=== PATIENT | male | born 1985 | race Caucasian/White ===

== ENCOUNTER → 2022-09-29 09:59 | Outpatient (REF) | payer MEDICAID, SELFPAY ==
--- NOTE | 2022-09-29 10:04 | CA_ITS ---
Acquisition Time: 2022-09-29 10:10:45 Total Exercise Time: 00:05:37 Test Indications: CP Medications: SEE H Protocol: ЕЛЕНА Max HR: 144 BPM 77% of Pred: 185 BPM Max BP: 194/114 mmHG Max Work Load: 7.0 METS Exercise stress test exercise 5 min 37 sec of Елена protocol achieving 77% of MPHR, with mild SOB, no chest discomfort, with frequent PACs, occational PVC, with hypertensive response with max BP 194/114 with need to stop exercise, with non-diagnostic EKG due to suboptimal HR. In recovery BP came to 148/98Test reviewed with Dr. Rodgers. Called PCP office with report. Referred By: Gloria Cruz Overread By: BYRON BURTON
== END ==
LOC: HO.CARD 09:59
PROVIDERS: PCP Nurse Practitioner Primary Care; Visit Provider Nurse Practitioner Primary Care
DX: R07.9 Chest pain, unspecified (principal); I10 Essential (primary) hypertension; E78.5 Hyperlipidemia, unspecified; E11.69 Type 2 diabetes mellitus with other specified complication
CPT/HCPCS: 93017

== ENCOUNTER 2023-02-02 12:27 | Outpatient (AMB) | payer MEDICAID, SELFPAY ==
--- NOTE | 2023-02-02 12:49 | A.OFFVIS_ITS ---
Intake Vital Signs 02/02/23 12:50 Height 5 ft 11 in Weight 297 lb 9.985 oz BMI 41.5 BP 136/88 Blood Pressure Location Lt brachial Position Sitting Pulse 78 Intake Visit Reasons: NPV/Cruz/HTN Intake Note: New patient dx HTN c/o sob and chest pain (? 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 Present Accompanied by: girlfriend Allergies No Known Allergies Allergy (Unverified 03/15/20 15:38) Medication List - Last Reconciled 02/02/23 by Alexandre Whelan MD allopurinol 200 mg PO DAILY amlodipine 5 mg PO DAILY aspirin 81 mg PO DAILY atorvastatin 20 mg PO DAILY dulaglutide (Trulicity) mg subcut QWEEK glipizide ER 5 mg PO QAM indomethacin 50 mg PO TID insulin glargine (Lantus Solostar U-100 Insulin) 24 units subcut DAILY losartan 100 mg PO QAM magnesium 200 mg PO DAILY omega 2-xgj-izn-fish oil 300 mg (120 mg- 180mg)-1,000 mg 1 cap PO BID pantoprazole 20 mg PO QAM HPI HPI Comments History of Present Illness Details Thank you for referring Pao in cardiology consultation today for exertional shortness of breath and chest discomfort. Complains of infra memory chest pain left side not always exertion related. However chest pain could have been related to elevated blood pressure in the past. Blood pressure is to be markedly elevated in 200 systolic range. With medications blood pressure is much better control at this point in time. High blood pressure still remains with systolic 138-150. He also complains of exertional shortness of breath. He is accompanied by his significant other. She says that he snores significantly at nighttime and has daytime somnolence. He denies any prolonged palpitations, irregular heartbeat. Denies any lightheadedness, syncope. Denies any orthopnea, PND. Takes his current medications. He said his diabetes under better control as well. He has completely stop drinking alcohol for the last year. Smokes about 5 cigarettes a day. [facility] Medical History Diabetes HTN (hypertension) Obesity Family History Father No problems noted. Mother No problems noted. Social History Patient Tobacco Use Status: Current everyday Tobacco user Cigarette Packs Per Day: 0.5 Review of Systems Const Denies chills, Denies daytime sleepiness, Denies fatigue, Denies fever(s), Denies frequent falls, Denies poor appetite, Denies snoring, Denies stops breathing during sleep, Denies weakness, Denies weight gain and Denies weight loss Eyes Denies loss of vision ENT Denies dizziness and Denies hearing loss Card Denies chest pain, Denies claudication, Denies leg edema, Denies lightheadedness, Denies palpitations, Denies dyspnea, Denies dyspnea on exertion and Denies orthopnea Resp Denies cough, Denies excessive phlegm production, Denies dyspnea, Denies dyspnea on exertion, Denies snoring and Denies wheezing GI Denies abdominal pain, Denies hematochezia, Denies change in bowel habits, Denies nausea and Denies vomiting Denies dysuria and Denies urinary frequency Musc Denies arthralgias, Denies muscle weakness, Denies numbness and Denies other (frequent falls) Skin/Breast Denies nail changes and Denies rash Neuro Denies Abnormal speech present, Denies dizziness, Denies frequent falls, Denies loss of vision, Denies memory loss, Denies numbness and Denies weakness Psych Denies depression and Denies memory loss Endo Denies fatigue and Denies palpitations Forrest/Lymph Reports easy bruising and Reports other (anemia) Aller/Immun Denies wheezing Physical Exam Vital Signs: Last Vital Signs Pulse 78 02/02/23 12:50 BP 136/88 02/02/23 12:50 BMI result Body Mass Index 41.5 Const General: cooperative, comfortable, no acute distress, alert and awake Nutritional Appearance: obese morbidly obese Orientation/consciousness: patient oriented x3 Limitations: no limitations HEENT Head: Yes normocephalic and Yes atraumatic Neck Neck: Yes trachea midline, Yes supple and Yes no JVD Resp Effort & Inspection: normal respiratory effort Auscultation: clear to auscultation bilaterally Cardio Jugular venous distension: no JVD Palpation: normal PMI Rate: regular rate Rhythm: regular rhythm Heart sounds: S1 normal heart sound present, S2 normal heart sound present, no click, no gallops, no murmurs and no rubs GI Inspection: Yes obesity Auscultation: normal bowel sounds Skin General skin exam: no rashes or lesions noted Neuro General: patient oriented x3 and no focal motor deficits Speech: No Abnormal speech present Extrem General: Yes no clubbing, cyanosis or edema Psych Appearance: grossly normal Office Procedures EKG Details: EKG shows normal sinus rhythm normal EKG at 78 beats per minute [id number], Complete Assessment & Plan Assessment & Plan (1) Atypical chest pain: Code(s): R07.89 - Other chest pain Plan: Patient persistent symptoms exertional shortness of breath as well as atypical chest pain. Could be related to hypertensive heart disease. Suggest an echocardiogram to evaluate for LV systolic and diastolic function as well as to evaluate for hypertensive heart disease. He had a suboptimal stress test related to reduced exercise capacity. Would suggest a vasodilating myocardial perfusion imaging given his significant risk factors to evaluate for obstructive coronary artery disease. This test will be scheduled in near future. Further treatment based on the findings. (2) HTN (hypertension): Code(s): I10 - Essential (primary) hypertension Plan: Hypertension which is currently not well optimized. Has high likelihood of underlying obstructive sleep apnea. Suggested him to undergo sleep study in the near future. All also change his losartan to losartan hydrochlorothiazide. Advised to monitor blood pressure at home and maintain a log. Goal blood pressure less than 130/84. Aggressive control of diabetes recommended goal hemoglobin A1c less than 7%. Goal LDL less than 70 mg/dL. Strongly recommend to participate in aggressive weight loss program. He understands agrees. Complete smoking cessation was advised as well. He understands and agrees. Follow up in the clinic in 6 weeks time, sooner p.r.n.. Thank you for allowing me to partake in his care Orders: Orders CA lexiscan stress w michaela Today R07.89 - Other chest pain CA echo transthoracic complete Today R07.89 - Other chest pain RT home sleep study Today I10 - Essential (primary) hypertension, R40.0 - Somnolence Medications: New losartan-hydrochlorothiazide 100-12.5 mg 1 tab PO DAILY 30 tabs 5RF R07.89 - Other chest pain Coding Level of Care Code New Pt Level 4 (70643) Diagnoses Atypical chest pain R07. HTN (hypertension) I10 CPT Codes EKG - CPT: 71134-[id number], Complete ([id number])
[2023-02-02 12:50] VITALS: BP 136/88; PULSE 78; BMI 41.5
== END 2023-02-02 13:28 | disposition home or self-care (01) ==
PROVIDERS: Visit Provider Internal Medicine Cardiovascular Disease
DX: R07.89 Other chest pain (principal); I10 Essential (primary) hypertension
CPT/HCPCS: 93010; 99204

== ENCOUNTER → 2023-02-02 12:27 | Outpatient (BNVA) | payer MEDICAID, SELFPAY | PROVIDERS: Visit Provider Internal Medicine Cardiovascular Disease | DX: R07.89 Other chest pain (principal); I10 Essential (primary) hypertension | CPT/HCPCS: 93005; 99202 ==

== ENCOUNTER → 2023-02-27 07:56 | Outpatient (REF) | payer MEDICAID, SELFPAY ==
--- NOTE | ~2023-02-27 | NM_ITS ---
Lexiscan Myocardial perfusion study Indication: Chest pain, shortness of breath, assess for coronary disease and ischemia Technique: The patient was brought in for a Lexiscan perfusion study on 02/27/2023 and was injected 0.4 mg of Lexiscan intravenously. Within a minute of this injection 40 mCi of sestamibi was given intravenously. Images were obtained using the SPECT gamma camera interlaced with the gating device. Images were obtained in supine position. Resting perfusion study was performed on 03/04/2023. Patient was administered 40 mCi of sestamibi intravenously at rest. Images were then obtained in supine position. Images were processed with the software and compared side to side in short axis, horizontal long axis and vertical long axis views. Total DLP 154mGy-cm. Findings: Raw acquisition reviewed. The stress perfusion study showed mildly diminished tracer uptake in the basal part of inferior wall. There is improvement with CT attenuation correction suggestive of diaphragmatic attenuation artifact. The gated study shows normal LV systolic function with calculated LVEF of 57%. LV cavity is normal in size. The gated study shows normal wall thickening and contraction of segments. Resting study shows mildly diminished tracer uptake in the basal part of inferior wall. Gating at rest reveals normal wall motion with ejection fraction at 56%. The findings are consistent with no clear reversible or fixed perfusion defects. NM/NM michaela perf SPECT rest & str Impression: 1. Myocardial perfusion imaging study shows likely normal myocardial perfusion. 2. Gated LVEF is 57% during stress and 56% during rest. 3. Transient ischemic dilatation not present. EKG component of the test reported separately.
--- NOTE | 2023-02-27 11:19 | CA_ITS ---
Acquisition Time: 2023-02-27 08:14:26 Total Exercise Time: 00:02:00 Test Indications: CP, SOB Medications: SEE H Protocol: LEXISCAN Max HR: 136 BPM 73% of Pred: 184 BPM Max BP: 136/074 mmHG Max Work Load: 1.6 METS Pharmacological stress test with Lexiscan injection while walking slowly on the treadmill, without anginal symptoms, with isolated PACs, with normotensive response to injection, with nondiagnositic EKGs. Nuclear images pending. Test reviewed with Dr. Rodgers. Referred By: Alexandre Whelan Overread By: Anahi Haagn
== END ==
LOC: HO.CARD 07:56
PROVIDERS: PCP Nurse Practitioner Primary Care; Visit Provider Internal Medicine Cardiovascular Disease
DX: R07.89 Other chest pain (principal)
CPT/HCPCS: 78452; 93017; A9500; J0280; J2785

== ENCOUNTER → 2023-02-27 11:19 | Outpatient (BNV) | payer MEDICAID, SELFPAY | PROVIDERS: PCP Nurse Practitioner Primary Care; Visit Provider Nurse Practitioner | DX: R07.89 Other chest pain (principal); R06.02 Shortness of breath | CPT/HCPCS: 78452; 93016; 93018 ==

== ENCOUNTER → 2023-03-12 08:19 | Outpatient (REF) | payer MEDICAID, SELFPAY ==
--- NOTE | 2023-03-12 08:22 | CA_ITS ---
Transthoracic Echocardiogram Patient (Last, First, Middle): Pavel Hollis, Gender: Male Date of : 1985 Age: 37 Procedure Date: 03/12/2023 Procedure Type: Transthoracic Echocardiogram Location: OP Height: 177.8 cm Weight: 130.18 kg BSA: 2.43 m2 Heart Rate: 86 bpm BP: 134 / 82 mmHg Vrt Mechanic: INGRID Referring MD: Alexandre Whelan MD Symptoms: R07.89 - Other chest pain Study Quality: Fair but adequate ECG Rhythm: Sinus Conclusions: - The left ventricular systolic function is normal. The visually estimated ejection fraction is between 65-70%. - Moderate to severe asymmetric septal hypertrophy. - No obvious valvular pathology seen on this study. Findings Procedure Information The quality of the study was technically difficult. The study quality is limited by patients body habitus. Left Ventricle Normal left ventricular cavity size. The left ventricular systolic function is normal. The visually estimated ejection fraction is between 65-70%. There is no evidence of regional wall motion abnormalities. Diastolic function is normal for age. Moderate to severe asymmetric septal hypertrophy. Right Ventricle Normal right ventricular cavity size and systolic function. Atria Both atria are normal in size. Aortic Valve There is a normal trileaflet aortic valve. There is no aortic valve stenosis. There is no aortic valve regurgitation. Mitral Valve The mitral valve appears normal. There is no mitral valve regurgitation. There is no mitral valve stenosis. Pulmonic Valve The pulmonic valve is likely normal. Tricuspid Valve There is no tricuspid valve regurgitation. Tricuspid regurgitation envelope is inadequate for calculation of right ventricular systolic pressure. Great Vessels The asc aorta is normal in size. Venous The inferior vena cava is normal in size and collapses greater than 50% with inspiration. Pericardium/Pleural There is no evidence of pericardial effusion. Prior Study Comparison No prior study available for comparison. Recommendations, Care & Conclusions No obvious valvular pathology seen on this study. Measurements 2D Linear Measurements IVSd: 1.52 0.6-0.9/0.6-1.0 cm LVIDd: 4.96 3.9-5.3/4.2-5.9 cm LVIDd Index: 2.04 2.4-3.2/2.2-3.1 cm/m2 LVIDs: 2.97 2.0-3.6 cm LVPWd: 0.85 0.7-1.1 cm LA Diam: 3.70 2.7-3.8/3.0-4.0 cm LAIDs Index: 1.52 1.5-2.3 cm/m2 LV Mass: 281.84 67-162/88-224 g LV Mass Index: 115.99 43-95/49-115 g/m2 LVOT Diam: 2.30 3.0+(-)1.3 cm 2D Systolic Function EF 4C: 64.30 >55% EF 2C: 58.60 >55% EF BiP: 61.00 >55% Mitral Valve MV Pk E: 0.96 MV PK A: 0.71 MV Decel Time: 158.00 E/A: 1.40 E'Lateral: 9.36 E'Medial: 8.49 E/E' Med: 11.20 E/E' Lat: 10.20 PHT: 46.00 MVA PHT: 4.78 Decel Towns: 6.06 Aortic Valve AoV Pk Alex: 1.56 AoV Pk Grad: 10.00 FELIBERTO: 2.60 LVOT LVOT Pk Alex: 1.14 LVOT Mn Alex: 0.80 LVOT VTI: 0.21 LVOT Pk Grad: 5.00 LVOT Mn Grad: 3.00 LVOT Diam: 2.30 LVOT Area: 4.15 Diastolic Function MV Pk E: 0.96 MV Pk A: 0.71 E/A: 1.40 E'Medial: 8.49 E/E' Med: 11.20 E' Laterial: 9.36 E/E' Lat: 10.20 Right Ventricle TAPSE (mm): 19.80 TVS' Alex: 16.00 Tricuspid Valve RA Press: 3.00 Great Vessels Aorta Sinus of Valsalva: 3.40 2.0-3.5 cm Ao Asc: 2.90 2.1-3.4 cm Pulmonary Veins Pulm Vein S/D 1.50 Pulmonary Valve PV Pk Alex: 1.25 Peak PV Grad: 6.00 Updated in Other Vendor System with Status of Final Scott Avalos MD electronically signed on 03/13/2023 8:56:08 AM with status of Final
== END ==
LOC: HO.CARD 08:19
PROVIDERS: PCP Nurse Practitioner Primary Care; Visit Provider Internal Medicine Cardiovascular Disease
DX: R07.89 Other chest pain (principal)
CPT/HCPCS: 93306

== ENCOUNTER → 2023-03-12 08:22 | Outpatient (BNV) | payer MEDICAID, SELFPAY | PROVIDERS: PCP Nurse Practitioner Primary Care; Visit Provider Internal Medicine | DX: I51.7 Cardiomegaly (principal) | CPT/HCPCS: 93306 ==

== ENCOUNTER 2023-03-19 08:42 | Outpatient (AMB) | payer MEDICAID, SELFPAY ==
--- NOTE | 2023-03-19 08:43 | A.OFFVIS_ITS ---
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 Accompanied by: Unknown Allergies No Known Allergies Allergy (Verified 03/19/23 08:48) Medication List - Last Reconciled 03/19/23 by Paris Holley, FILLING WINDER-C allopurinol 200 mg PO DAILY amlodipine 5 mg PO DAILY aspirin 81 mg PO DAILY atorvastatin 20 mg PO DAILY dulaglutide (Trulicity) mg subcut QWEEK glipizide ER 5 mg PO QAM indomethacin 50 mg PO TID insulin glargine (Lantus Solostar U-100 Insulin) 24 units subcut DAILY losartan-hydrochlorothiazide 100-12.5 mg 1 tab PO DAILY magnesium 200 mg PO DAILY omega 0-dlv-jez-fish oil 300 mg (120 mg- 180mg)-1,000 mg 1 cap PO BID pantoprazole 20 mg PO QAM quetiapine 25 mg PO BEDTIME HPI 6 wk fu of sleep study/stress/ echo HPI Details Feliciano is a 37-year-old male with past medical history morbid obesity, hypertension, diabetes who recently reported atypical chest discomfort and shortness of breath with activity. He underwent an echocardiogram and stress test. A sleep study was ordered however not completed as of yet. Today he reports that he still gets some vague discomfort in his left chest region, nonexertional in nature. He has some shortness of breath with activity which is not worsening. No shortness of breath at rest. Denies PND, orthopnea or edema. His significant other is present and states that he has visible sleep apnea at night. No palpitations, dizziness, presyncope, syncope, falls. Taking his meds as directed. Home blood pressures ranging 120-130 systolic. Improved since the addition of amlodipine. [facility] Medical History Obesity Diabetes HTN (hypertension) Family History Father No problems noted. Mother No problems noted. Social History Patient Tobacco Use Status: Current everyday Tobacco user Cigarette Packs Per Day: 0.5 Review of Systems Const All systems reviewed & are unremarkable except as noted in HPI and below ENT Denies dizziness Card Denies chest pain, Denies chest pain at rest, Denies chest pain with activity, Denies rapid heart rate, Denies pedal edema, Denies edema, Denies leg edema, Denies lightheadedness, Denies palpitations, Denies dyspnea, Denies dyspnea on exertion and Denies orthopnea Resp Denies cough, Denies dyspnea and Denies dyspnea on exertion GI Denies hematochezia and Denies change in stool character Musc Denies abnormal gait, Reports limited range of motion, Reports muscle cramps, Denies muscle weakness, Denies numbness, Denies radiating pain into limb, Denies stiffness and Denies tingling Neuro Denies abnormal gait, Denies dizziness, Denies numbness and Denies tingling Endo Denies palpitations Physical Exam Vital Signs: Last Vital Signs Pulse 80 03/19/23 08:44 BP 130/74 03/19/23 08:44 BMI result Body Mass Index 42.4 Const General: cooperative, healthy appearing, comfortable and no acute distress Orientation/consciousness: patient oriented x3 Neck Neck: Yes normal visual inspection Resp Effort & Inspection: normal respiratory effort Auscultation: clear to auscultation bilaterally, no crackles, no rales, no rhonchi and no wheezes Cardio Jugular venous distension: no JVD Rate: regular rate Rhythm: regular rhythm Heart sounds: S1 normal heart sound present, S2 normal heart sound present, no murmurs and no rubs GI Other: Obese, rounded Neuro General: patient oriented x3 Extrem General: Yes normal to inspection Psych Appearance: grossly normal Mental Status: mental status grossly normal Speech and movement: Normal speech and movement present Assessment & Plan Assessment & Plan (1) Atypical chest pain: Code(s): R07.89 - Other chest pain Plan: Atypical sounding chest discomfort, nonexertional. Cardiac risks of morbid obesity, hypertension, diabetes. Echocardiogram done 03/12/2023 showed EF 65- 70%, moderate to severe asymmetric septal hypertrophy. Nuclear stress test done on 02/27/2023 showing normal myocardial perfusion imaging. Sleep study was orde red however not completed as of yet. Will help him reschedule and plan to call him with results when available. Reviewed all test results with him in detail. His chest discomfort does not seem cardiac in nature. The strict importance of good blood pressure control reviewed. Benefits of weight loss, treating sleep apnea if it is present discussed. At present in continue home atorvastatin, aml odipine, losartan/hydrochlorothiazide. Daily aspirin not required at this time for cardiac reasons as he has no known CAD. Cardiology office visit in 6 months, sooner if needed (2) HTN (hypertension): Code(s): I10 - Essential (primary) hypertension Qualifiers: Hypertension type: primary hypertension Qualified Code(s): I10 - Essential (primary) hypertension Plan: Blood pressure goal less than 130/85. Good at present as above. Reviewed low- salt diet, weight loss. Continue amlodipine, losartan/hydrochlorothiazide. Meds can be further titrated as needed for blood pressures running with systolic greater than 140. (3) Obesity: Code(s): E66.9 - Obesity, unspecified Qualifiers: Obesity type: due to excess calories Obesity classification: adult class 3 (BMI >= 40) Serious obesity comorbidity presence: with serious comorbidity Body mass index: BMI 40.0-44.9 Qualified Code(s): E66.01 - Morbid (severe) obesity due to excess calories; Z68.41 - Body mass index [BMI] 40.0- 44.9, adult Plan: Instructed on the need for weight loss. He plans to increase his physical activ ity. Instructed to start out slow and work up his tolerance as able (4) Shortness of breath: Code(s): R06.02 - Shortness of breath Plan: Likely multifactorial in the setting of morbid obesity, deconditioning. Cardiac testing as above (5) Asymmetric septal hypertrophy: Code(s): I42.2 - Other hypertrophic cardiomyopathy Plan: Noted on recent echocardiogram Coding Level of Care Code Est Pt Level 3 (34647) Diagnoses Atypical chest pain R07.89 Primary hypertension I10 Hypertension type: primary hypertension Class 3 severe obesity due to excess calories with serious comorbidity and body mass index (BMI) of 40.0 to 44.9 in adult E66.01; Z68.41 Obesity type: due to excess calories Obesity classification: adult class 3 (BMI >= 40) Serious obesity comorbidity presence: with serious comorbidity Body mass index: BMI 40.0-44.9 Shortness of breath R06.02 Asymmetric septal hypertrophy I42.2 Time Spent (min) 22
[2023-03-19 08:44] VITALS: BP 130/74; PULSE 80; BMI 42.4
== END 2023-03-19 09:12 | disposition home or self-care (01) ==
PROVIDERS: PCP Nurse Practitioner Primary Care; Visit Provider Nurse Practitioner Family
DX: R07.89 Other chest pain (principal); I10 Essential (primary) hypertension; E66.01 Morbid (severe) obesity due to excess calories; Z68.41 Body mass index [BMI] 40.0-44.9, adult; R06.02 Shortness of breath; I42.2 Other hypertrophic cardiomyopathy
CPT/HCPCS: 99213

== ENCOUNTER → 2023-03-19 08:42 | Outpatient (BNVA) | payer MEDICAID, SELFPAY | PROVIDERS: PCP Nurse Practitioner Primary Care; Visit Provider Nurse Practitioner Family | DX: R07.89 Other chest pain (principal); R06.02 Shortness of breath; I42.2 Other hypertrophic cardiomyopathy; I10 Essential (primary) hypertension; E66.01 Morbid (severe) obesity due to excess calories; Z68.41 Body mass index [BMI] 40.0-44.9, adult | CPT/HCPCS: 99212 ==

== ENCOUNTER → 2023-04-23 15:54 | Outpatient (REF) | payer MEDICAID, SELFPAY | LOC: HO.SL 15:54 | PROVIDERS: PCP Nurse Practitioner Primary Care; Visit Provider Internal Medicine Cardiovascular Disease | DX: R40.0 Somnolence (principal); I10 Essential (primary) hypertension; G47.33 Obstructive sleep apnea (adult) (pediatric) | CPT/HCPCS: 95806 ==

== ENCOUNTER → 2023-04-23 16:02 | Outpatient (BNV) | payer MEDICAID, SELFPAY | PROVIDERS: PCP Nurse Practitioner Primary Care; Visit Provider Internal Medicine | DX: G47.33 Obstructive sleep apnea (adult) (pediatric) (principal) | CPT/HCPCS: 95806 ==

== ENCOUNTER 2023-05-01 11:16 | Outpatient (AMB) | payer MEDICAID, SELFPAY ==
--- NOTE | 2023-05-01 11:18 | A.OFFVIS_ITS ---
Intake Vital Signs 05/01/23 11:23 Height 5 ft 11 in Weight 300 lb BMI 41.8 BP 140/98 H Blood Pressure Location Lt brachial Position Sitting Pulse 81 Pulse Source Pulse Oximeter Pulse Oximetry (%) 97 Oxygen Delivery Method Room Air Intake Visit Reasons: [id number] Intake Note: NPV for AARON evaluation Health Science Specialist Required: No Allergies No Known Allergies Allergy (Verified 05/01/23 11:19) HPI HPI Comments History of Present Illness Details 37 y/o male patient presents for new in- person visit for sleep consultation. Pt reports snoring, and gasping, frequent apnea spells. He fights for sleep, feels not having enough air when he sleeps and afraid to sleep. He only can sleep 4 hrs and wake up tired. Pt had a home sleep study done in Mar, 2023. The result was significant for moderately to severe AARON. The total AHI was 20/hr and snoring for 27% of the sleep time. Mild nocturnal hypoxemia with average O2 sat 92% and the lowest O2 sat 68% and O2 sat below 88% for 20 min. Sleep questionnaire: Have you ever been diagnosed with a sleep disorder? Yes. AARON Have you ever had a sleep study in the past? Yes Have you ever been treated for a sleep disorder? Yes. Do you take medications for a sleep disorder? No. Do you snore? Yes Do you wake up gasping at night? Yes. Do you have episodes of apneas? Yes. If yes, are they witnessed? Yes. Do you have episodes of nocturnal chest pain or dyspnea? Yes. Do you have difficulty initiating sleep? Yes. Do you have difficulty maintaining sleep? Yes. Do you wake up tired? Yes. Do you have headaches upon awakening? Yes, sometimes. Do you wake up with dry mouth or throat? Yes. Do you have GERD? Yes. Do you have nocturia? Yes. Do you have nocturnal leg cramps? No. Do you have symptoms of restless legs? Yes. Do you act out your dreams? Yes, kicking and punching. Sleep hygiene questionnaire: What is your usual sleep routine? Usual bedtime is at 3-4 am ; Usual wake up time is at 7-8 am. Do you take naps? Yes, sometimes. Is your sleep environment cool, dark, and quiet? Yes. Do you exercise? No. Do you take caffeine or other stimulants? Coffee and energy drink 2-3 times a week. Do you use electronics in bed? Yes. What is your work schedule? N/A. Hypersomnolence questionnaire: Do you have daytime tiredness or fatigue? Yes. Do you easily fall asleep when inactive? No. Have you ever had episodes of sudden weakness? No. Have you ever had episodes of sudden weakness associated with strong emotions? No. PFSH Medical History (Updated 05/26/23 @ 20:40 by Conrad Thompson CNP) Obesity Diabetes HTN (hypertension) Surgical History (Updated 05/01/23 @ 11:22 by Rosy Valencia [facility]) Hx of appendectomy Family History Father No problems noted. Mother No problems noted. Social History (Updated 05/01/23 @ 11:23 by Rosy Valencia [facility]) Alcohol intake: never Patient Tobacco Use Status: Current everyday Tobacco user Cigarette Packs Per Day: 0.5 Review of Systems Const All systems reviewed & are unremarkable except as noted in HPI and below ENT Reports Normal hearing present Neuro Reports Normal hearing present Physical Exam Vital Signs: Last Vital Signs Pulse 81 05/01/23 11:23 BP 140/98 H 05/01/23 11:23 Pulse Ox 97 05/01/23 11:23 Oxygen Delivery Method Room Air 05/01/23 11:23 BMI result Body Mass Index 41.8 Const General: cooperative Nutritional Appearance: obese Orientation/consciousness: patient oriented x3 Neck Neck: Yes full ROM and Yes supple Resp Effort & Inspection: normal respiratory effort and able to speak in complete sentences Neuro General: patient oriented x3 Cranial nerves: Yes Bilaterally intact EOM present, Yes Normal facial strength present, Yes Midline tongue present, Yes Symmetric palate elevation present, Yes Normal hearing present, Yes Ability to bilaterally rotate head present and Yes Ability to bilaterally elevate shoulders present Cognition (Neuro): normal cognition Motor exam (neuro): 5/5 motor strength present throughout, Pronator motor function not present and no tremor noted Psych Appearance: grossly normal Mental Status: mental status grossly normal Speech and movement: Normal speech and movement present Attitude: cooperative Assessment & Plan Assessment & Plan (1) Obstructive sleep apnea: Comment: moderately to severe AARON. The total AHI was 20/hr and snoring for 27% of the sleep time. Mild nocturnal hypoxemia with average O2 sat 92% and the lowest O2 sat 68% and O2 sat below 88% for 20 min. Code(s): G47.33 - Obstructive sleep apnea (adult) (pediatric) Plan Advised patient to start APAP [id number]. Stressed CPAP compliance, use CPAP nightly and more than 4 hrs. Wt reduction advised. Start melatonin 3 mg qHS to help sleep. Medications: New melatonin 3 mg PO BEDTIME 30 tabs 6RF sleep 30 days Coding Level of Care Code New Pt Level 3 (82789) Diagnoses Obstructive sleep apnea G47.33
[2023-05-01 11:23] VITALS: BP 140/98; PULSE 81; O2SAT 97; BMI 41.8
== END 2023-05-01 11:47 | disposition home or self-care (01) ==
PROVIDERS: PCP Nurse Practitioner Primary Care; Visit Provider Nurse Practitioner Family
DX: G47.33 Obstructive sleep apnea (adult) (pediatric) (principal)
CPT/HCPCS: 99203

== ENCOUNTER → 2023-05-01 11:16 | Outpatient (BNVA) | payer MEDICAID, SELFPAY | PROVIDERS: PCP Nurse Practitioner Primary Care; Visit Provider Nurse Practitioner Family | DX: G47.33 Obstructive sleep apnea (adult) (pediatric) (principal) | CPT/HCPCS: 99212 ==

== ENCOUNTER 2023-09-03 09:30 | Outpatient (AMB) | payer MEDICAID, SELFPAY ==
--- NOTE | 2023-09-03 09:37 | MHC.OFFVIS ---
Intake Vital Signs 09/03/23 09:45 Height 5 ft 11 in Weight 314 lb 2 oz BMI 43.8 BP 134/70 Blood Pressure Location Rt brachial Position Sitting Pulse 82 Pulse Source Pulse Oximeter Temp 97 F Pulse Oximetry (%) 97 Oxygen Delivery Method Room Air Intake Visit Reasons: 4 mo f/u -AARON-Confirmed Intake Note: Patient presents for 4 month f/u AARON. Would like to switch to the nasal pillows because mask is very uncomfortable. Allergies No Known Allergies Allergy (Verified 09/14/23 08:19) HPI HPI Comments History of Present Illness Details 37 y/o male patient presents for follow up of sleep study. The home sleep study result was significant for a moderately severe degree of sleep apnea. The total sleep time AHI was 20/hr, mild nocturnal hypoxemia with average O2 sat 92%, lowest O2 sat 68% and O2 sat below 88% for 20 min. Pt started APAP at [id number]. The CPAP compliance and therapy response (06/05/23-09/02/23) reviewed. The usage days 83% and the average usage hours 4 hrs 10 min. The max pressure was 13.2 and the residual AHI wa 1.4/hr. Pt reports he sleeps better with CPAP, and rested, and wakes up refreshed. [facility] Medical History Obesity Diabetes HTN (hypertension) Surgical History Hx of appendectomy Family History Father No problems noted. Mother Sleep apnea History of thyroid disease Social History Alcohol intake: never Patient Tobacco Use Status: Current everyday Tobacco user Cigarette Packs Per Day: 0.5 Review of Systems Const All systems reviewed & are unremarkable except as noted in HPI and below ENT Reports Normal hearing present Neuro Reports Normal hearing present Physical Exam Vital Signs: Last Vital Signs Temp 97 F 09/03/23 09:45 Pulse 82 09/03/23 09:45 BP 134/70 09/03/23 09:45 Pulse Ox 97 09/03/23 09:45 Oxygen Delivery Method Room Air 09/03/23 09:45 BMI result Body Mass Index 43.8 Const General: cooperative Nutritional Appearance: obese Orientation/consciousness: patient oriented x3 Neck Neck: Yes full ROM and Yes supple Resp Effort & Inspection: normal respiratory effort and able to speak in complete sentences Neuro General: patient oriented x3 Cranial nerves: Yes Bilaterally intact EOM present, Yes Normal facial strength present, Yes Midline tongue present, Yes Symmetric palate elevation present, Yes Normal hearing present, Yes Ability to bilaterally rotate head present and Yes Ability to bilaterally elevate shoulders present Cognition (Neuro): normal cognition Motor exam (neuro): 5/5 motor strength present throughout, Pronator motor function not present and no tremor noted Psych Appearance: grossly normal Mental Status: mental status grossly normal Speech and movement: Normal speech and movement present Attitude: cooperative Assessment & Plan Assessment & Plan (1) Obstructive sleep apnea: Comment: moderately to severe AARON. The total AHI was 20/hr and snoring for 27% of the sleep time. Mild nocturnal hypoxemia with average O2 sat 92% and the lowest O2 sat 68% and O2 sat below 88% for 20 min. Code(s): G47.33 - Obstructive sleep apnea (adult) (pediatric) Plan Advised patient to continue to use APAP [id number] as patient experiences good clinical effects. Stressed compliance, use CPAP nightly and more than 4 hrs. Wt reduction advised. Coding Level of Care Code Est Pt Level 3 (00393) Diagnoses Obstructive sleep apnea G47.33
[2023-09-03 09:45] VITALS: BP 134/70; PULSE 82; TEMP 36.1; O2SAT 97; BMI 43.8
== END 2023-09-03 10:00 | disposition home or self-care (01) ==
PROVIDERS: PCP Nurse Practitioner Primary Care; Visit Provider Nurse Practitioner Family
DX: G47.33 Obstructive sleep apnea (adult) (pediatric) (principal)
CPT/HCPCS: 99213

== ENCOUNTER → 2023-09-03 09:30 | Outpatient (BNVA) | payer MEDICAID, SELFPAY | PROVIDERS: PCP Nurse Practitioner Primary Care; Visit Provider Nurse Practitioner Family | DX: G47.33 Obstructive sleep apnea (adult) (pediatric) (principal) | CPT/HCPCS: 99212 ==

== ENCOUNTER 2023-09-14 08:04 | Outpatient (AMB) | payer MEDICAID, SELFPAY ==
[2023-09-14 08:18] VITALS: BP 134/72; PULSE 79; BMI 43.5
--- NOTE | 2023-09-14 08:18 | A.OFFVIS_ITS ---
Intake Vital Signs 09/14/23 08:18 Height 5 ft 11 in Weight 312 lb 2.793 oz BMI 43.5 BP 134/72 Blood Pressure Location Lt brachial Position Sitting Pulse 79 Pulse Source Pulse Oximeter Intake Visit Reasons: 6 mth f/up home sleep study Hospice Case Manager Required: No Allergies No Known Allergies Allergy (Verified 09/14/23 08:19) Medication List - Last Reconciled 09/14/23 by Paris Holley, WILFREDO-C allopurinol 200 mg PO DAILY amlodipine 5 mg PO DAILY aripiprazole 5 mg PO DAILY aspirin 81 mg PO DAILY atorvastatin 20 mg PO DAILY blood pressure kit-extra large As directed blood sugar diagnostic (FreeStyle Lite Strips) As directed diclofenac sodium 1% 2 grams topical glipizide ER 10 mg PO QAM indomethacin 50 mg PO TID insulin glargine (Lantus Solostar U-100 Insulin) 24 units subcut DAILY lancets (TRUEplus Lancets) As directed losartan-hydrochlorothiazide 100-12.5 mg 1 tab PO DAILY magnesium 200 mg PO DAILY melatonin 3 mg PO BEDTIME 30 days omega 4-kag-pkv-fish oil 300 mg (120 mg- 180mg)-1,000 mg 1 cap PO BID pantoprazole 20 mg PO QAM prazosin 1 mg PO BEDTIME tirzepatide (Mounjaro) mg subcut QWEEK HPI 6 mth f/up home sleep study HPI Details Pavel is a 37 year old male with past medical history morbid obesity, hypertension, hyperlipidemia, diabetes, assymetric septal hypertrophy, sleep apnea with nocturnal hypoxemia who presents for follow-up. Today he states he has been doing well since his last visit in February. Has been compliant with his CPAP mask. He follows with Sleep Medicine providers. No chest discomfort at rest or with activity. No heart palpitations, lightheadedness, presyncope, syncope, shortness of breath, PND orthopnea or edema. Taking meds as directed. Does not do heavy lifting, greater than 40 lb. Significant other is present. [facility] Medical History Obesity Diabetes HTN (hypertension) Surgical History Hx of appendectomy Family History Father No problems noted. Mother Sleep apnea History of thyroid disease Social History Alcohol intake: never Patient Tobacco Use Status: Current everyday Tobacco user Cigarette Packs Per Day: 0.5 Review of Systems Const All systems reviewed & are unremarkable except as noted in HPI and below ENT Denies dizziness Card Denies chest pain, Denies chest pain at rest, Denies chest pain with activity, Denies rapid heart rate, Denies pedal edema, Denies edema, Denies leg edema, Denies lightheadedness, Denies palpitations, Denies dyspnea, Denies dyspnea on exertion and Denies orthopnea Resp Denies cough, Denies dyspnea and Denies dyspnea on exertion GI Denies hematochezia and Denies change in stool character Musc Denies abnormal gait, Denies limited range of motion, Denies muscle cramps, Denies muscle weakness, Denies numbness, Denies radiating pain into limb, Denies stiffness and Denies tingling Neuro Denies abnormal gait, Denies dizziness, Denies numbness and Denies tingling Endo Denies palpitations Physical Exam Vital Signs: Last Vital Signs Pulse 79 09/14/23 08:18 BP 134/72 09/14/23 08:18 BMI result Body Mass Index 43.5 Const General: cooperative, healthy appearing, comfortable and no acute distress Orientation/consciousness: patient oriented x3 Neck Neck: Yes normal visual inspection Resp Effort & Inspection: normal respiratory effort Auscultation: clear to auscultation bilaterally, no crackles, no rales, no rhonchi and no wheezes Cardio Jugular venous distension: no JVD Rate: regular rate Rhythm: regular rhythm Heart sounds: S1 normal heart sound present, S2 normal heart sound present, no murmurs and no rubs GI Other: Obese, rounded Neuro General: patient oriented x3 Extrem General: Yes normal to inspection Psych Appearance: grossly normal Mental Status: mental status grossly normal Speech and movement: Normal speech and movement present Assessment & Plan Assessment & Plan (1) Atypical chest pain: Code(s): R07.89 - Other chest pain Plan: Prior reports of Atypical sounding chest discomfort, nonexertional which led to cardiac evaluation. Cardiac risks of morbid obesity, hypertension, diabetes. Echocardiogram done 03/12/2023 showed EF 65-70%, moderate to severe asymmetric septal hypertrophy. Nuclear stress test done on 02/27/2023 showing normal myocardial perfusion imaging. Sleep study 04/30/2023 showed moderately severe obstructive sleep apnea, with hypoxemia, lowest sat 68%. He has since started on CPAP and follows with Sleep Medicine. Says he has been doing well overall. He no longer gets the chest discomfort. His symptom had been atypical and was not felt to be cardiac related. He does have the asymmetric septal hypertrophy which can be related to his hypertension, morbid obesity, previously untreated sleep apnea. Reviewed the strict importance of good blood pressure control reviewed. Encouraged to lose weight, ongoing treatment sleep apnea. At present in continue home atorvastatin, amlodipine, losartan/hydrochlorothiazide. Will check an echo prior to his next visit. Cardiology office visit in 6 months, sooner if needed (2) HTN (hypertension): Code(s): I10 - Essential (primary) hypertension Qualifiers: Hypertension type: primary hypertension Qualified Code(s): I10 - Essential (primary) hypertension Plan: Blood pressure goal less than 130/85. Good at present as above. Reviewed low- salt diet, weight loss. Continue amlodipine, losartan/hydrochlorothiazide. Meds can be further titrated as needed for blood pressures running with systolic greater than 140. (3) Obesity: Code(s): E66.9 - Obesity, unspecified Qualifiers: Body mass index: BMI 40.0-44.9 Obesity classification: adult class 3 (BMI >= 40) Obesity type: due to excess calories Serious obesity comorbidity presence: with serious comorbidity Qualified Code(s): E66.01 - Morbid (severe) obesity due to excess calories; Z68.41 - Body mass index [BMI] 40.0-44.9, adult Plan: Instructed on the need for weight loss. He plans to increase his physical activity. Instructed to start out slow and work up his tolerance as able. He would benefit from weight management referral. Will for this note to his PCP. (4) Asymmetric septal hypertrophy: Code(s): I42.2 - Other hypertrophic cardiomyopathy Plan: Noted on recent echocardiogram Plan Time spent on chart review, documentation, interview and assessment Orders: Orders CA echo transthoracic complete 03/02/24 I42.2 - Other hypertrophic cardiomyopathy Coding Level of Care Code Est Pt Level 4 (07081) Diagnoses Atypical chest pain R07.89 Primary hypertension I10 Hypertension type: primary hypertension Class 3 severe obesity due to excess calories with serious comorbidity and body mass index (BMI) of 40.0 to 44.9 in adult E66.01; Z68.41 Body mass index: BMI 40.0-44.9 Obesity classification: adult class 3 (BMI >= 40) Obesity type: due to excess calories Serious obesity comorbidity presence: with serious comorbidity Asymmetric septal hypertrophy I42.2 Time Spent (min) 28
== END 2023-09-14 08:38 | disposition home or self-care (01) ==
PROVIDERS: PCP Nurse Practitioner Primary Care; Visit Provider Nurse Practitioner Family
DX: R07.89 Other chest pain (principal); I10 Essential (primary) hypertension; E66.01 Morbid (severe) obesity due to excess calories; Z68.41 Body mass index [BMI] 40.0-44.9, adult; I42.2 Other hypertrophic cardiomyopathy
CPT/HCPCS: 99214

== ENCOUNTER → 2023-09-14 08:04 | Outpatient (BNVA) | payer MEDICAID, SELFPAY | PROVIDERS: PCP Nurse Practitioner Primary Care; Visit Provider Nurse Practitioner Family | DX: R07.89 Other chest pain (principal); I10 Essential (primary) hypertension; E66.01 Morbid (severe) obesity due to excess calories; Z68.41 Body mass index [BMI] 40.0-44.9, adult; I42.2 Other hypertrophic cardiomyopathy | CPT/HCPCS: 99212 ==

== ENCOUNTER 2023-12-29 09:11 | Outpatient (REF) | payer MEDICAID, SELFPAY ==
[2023-12-29 11:34] LABS: Alanine Aminotransferase 149 U/L (0-40); Albumin Level 4.2 g/dL (3.5-5.0); Alkaline Phosphatase 119 U/L (39-117); Anion Gap 14 (12-20); Aspartate Amino Transferase 65 U/L (5-37); Bilirubin Total 1.2 mg/dL (0.0-1.0); Blood Urea Nitrogen 12 mg/dL (9-16); Calcium 9.5 mg/dL (8.4-10.2); Carbon Dioxide 26 mmol/L (22-29); Chloride 101 mmol/L (96-108); Cholesterol 101 mg/dL (<200); Estimated Glomerular Filt Rate > 60; Glucose Random 266 mg/dL (60-115); HDL Cholesterol 27 mg/dL (>40); LDL Cholesterol Calculated 24 mg/dL (<100); Potassium 3.8 mmol/L (3.3-5.1); Sodium 137 mmol/L (135-145); Total Protein 7.8 g/dL (6.5-8.0); Triglycerides 251 mg/dL (<150)
[2023-12-29 11:57] LABS: TSH reflex Free T4 3.04 uIU/mL (0.32-4.0)
[2023-12-29 12:09] LABS: Creatinine Urine 448.59 mg/dL; Microalbum/Creatinine Ratio Ur 20.2 ug/mg cr (<30)
== END 2023-12-29 09:12 | disposition home or self-care (01) ==
LOC: HO.HHCL 09:11
PROVIDERS: Visit Provider Nurse Practitioner Primary Care
DX: E11.69 Type 2 diabetes mellitus with other specified complication (principal); E78.5 Hyperlipidemia, unspecified; E03.9 Hypothyroidism, unspecified
CPT/HCPCS: 36415; 80053; 80061; 82043; 82570; 84443

== ENCOUNTER 2024-02-25 09:17 | Outpatient (REF) | payer MEDICAID, SELFPAY ==
[2024-02-25 13:25] LABS: Alanine Aminotransferase 172 U/L (0-40); Albumin Level 4.1 g/dL (3.5-5.0); Alkaline Phosphatase 90 U/L (39-117); Aspartate Amino Transferase 123 U/L (5-37); Bilirubin Direct 0.3 mg/dL (0.0-0.5); Bilirubin Total 0.9 mg/dL (0.0-1.0); Cholesterol 101 mg/dL (<200); HDL Cholesterol 26 mg/dL (>40); LDL Cholesterol Calculated 20 mg/dL (<100); Total Protein 7.7 g/dL (6.5-8.0); Triglycerides 275 mg/dL (<150)
== END 2024-02-25 09:18 | disposition home or self-care (01) ==
LOC: HO.HHCL 09:17
PROVIDERS: Visit Provider Nurse Practitioner Primary Care
DX: E11.69 Type 2 diabetes mellitus with other specified complication (principal); E78.5 Hyperlipidemia, unspecified; R79.89 Other specified abnormal findings of blood chemistry
CPT/HCPCS: 36415; 80061; 80076

== ENCOUNTER → 2024-03-02 07:50 | Outpatient (REF) | payer MEDICAID, SELFPAY ==
--- NOTE | 2024-03-02 07:52 | CA_ITS ---
Transthoracic Echocardiogram Patient (Last, First, Middle): Pavel Hollis, Gender: Male Date of : 1985 Age: 38 Procedure Date: 03/02/2024 Procedure Type: Transthoracic Echocardiogram Location: OP Height: 177.8 cm Weight: 141.52 kg BSA: 2.52 m2 Heart Rate: bpm BP: 124 / 70 [address] Engineer Freight: TO Referring MD: Paris Holley DOG RAISER-Prince Symptoms: I42.2 - Other hypertrophic cardiomyopathy Study Quality: Fair/Contrast ECG Rhythm: Sinus with extra beats Conclusions: - The left ventricular systolic function is normal. The calculated ejection fraction is 61% by biplane method. - Moderate to severe asymmetric septal hypertrophy. - No obvious valvular pathology seen on this study. Findings Procedure Information Contrast agent, definity, is being given per protocol without apparent complications. Left Ventricle Normal left ventricular cavity size. The left ventricular systolic function is normal. The calculated ejection fraction is 61% by biplane method. There is no evidence of regional wall motion abnormalities. Diastolic function is normal for age. Moderate to severe asymmetric septal hypertrophy. Right Ventricle Normal right ventricular cavity size and systolic function. Atria Both atria are normal in size. Aortic Valve There is a normal trileaflet aortic valve. There is no aortic valve stenosis. There is no aortic valve regurgitation. Mitral Valve The mitral valve appears normal. There is no mitral valve regurgitation. There is no mitral valve stenosis. Pulmonic Valve The pulmonic valve is likely normal. Tricuspid Valve There is no tricuspid valve regurgitation. Tricuspid regurgitation envelope is inadequate for calculation of right ventricular systolic pressure. Great Vessels The aortic annulus, sinuses of valsalva, and asc aorta are normal in size. Venous The inferior vena cava was not well visualized. The inferior vena cava is normal in size. Pericardium/Pleural There is no evidence of pericardial effusion. Prior Study Comparison No significant change compared to prior study dated: 03/12/2023. Recommendations, Care & Conclusions No obvious valvular pathology seen on this study. Measurements 2D Linear Measurements IVSd: 1.22 0.6-0.9/0.6-1.0 cm LVIDd: 5.01 3.9-5.3/4.2-5.9 cm LVIDd Index: 1.99 2.4-3.2/2.2-3.1 cm/m2 LVIDs: 3.40 2.0-3.6 cm LVPWd: 0.86 0.7-1.1 cm LA Diam: 2.80 2.7-3.8/3.0-4.0 cm LAIDs Index: 1.11 1.5-2.3 cm/m2 LV Mass: 239.40 67-162/88-224 g LV Mass Index: 95.00 43-95/49-115 g/m2 LVOT Diam: 2.40 3.0+(-)1.3 cm 2D Systolic Function EF 4C: 58.10 >55% EF 2C: 63.80 >55% EF BiP: 60.70 >55% Mitral Valve MV Pk E: 0.65 MV PK A: 0.48 MV Decel Time: 201.00 E/A: 1.30 E'Lateral: 8.38 E'Medial: 7.40 E/E' Med: 8.70 E/E' Lat: 7.70 PHT: 59.00 MVA PHT: 3.73 Decel [place]: 3.22 Aortic Valve AoV Pk Alex: 1.29 AoV Mn Alex: 0.84 AoV VTI: 0.21 AoV Pk Grad: 7.00 Aov Mn Grad: 3.00 FELIBERTO Cont.VTI: 3.40 LVOT LVOT Pk Alex: 0.84 LVOT Mn Alex: 0.60 LVOT VTI: 0.16 LVOT Pk Grad: 3.00 LVOT Mn Grad: 2.00 LVOT Diam: 2.40 LVOT Area: 4.52 Diastolic Function MV Pk E: 0.65 MV Pk A: 0.48 E/A: 1.30 E'Medial: 7.40 E/E' Med: 8.70 E' Laterial: 8.38 E/E' Lat: 7.70 Right Ventricle TAPSE (mm): 17.50 TVS' Alex: 12.70 Tricuspid Valve RA Press: 3.00 Great Vessels Aorta Sinus of Valsalva: 3.64 2.0-3.[address] [place]: 2.92 1.7-3.4 cm Ao Asc: 3.40 2.1-3.4 cm Updated in Other Vendor System with Status of Final Scott Avalos MD electronically signed on 03/02/2024 3:59:48 PM with status of Final
== END ==
LOC: HO.CARD 07:50
PROVIDERS: PCP Nurse Practitioner Primary Care; Visit Provider Nurse Practitioner Family
DX: I42.2 Other hypertrophic cardiomyopathy (principal)
CPT/HCPCS: 93306; Q9957

== ENCOUNTER → 2024-03-02 07:52 | Outpatient (BNV) | payer MEDICAID, SELFPAY | PROVIDERS: PCP Nurse Practitioner Primary Care; Visit Provider Internal Medicine | DX: I42.2 Other hypertrophic cardiomyopathy (principal) | CPT/HCPCS: 93306 ==

== ENCOUNTER 2024-03-22 08:35 | Outpatient (AMB) | payer MEDICAID, SELFPAY ==
[2024-03-22 08:49] VITALS: BP 136/84; BMI 41.2
--- NOTE | 2024-03-22 08:49 | MHC.OFFVIS ---
Vital Signs 03/22/24 08:49 Height 5 ft 11 in Weight 295 lb 6.711 oz BMI 41.2 BP 136/84 Blood Pressure Location Lt radial Position Sitting Intake Visit Reasons: 6 mth f/up s/p echo DC Intake Note: 6 month follow-up with ekg after echo feeling good Php Software Engineer Required: No Allergies No Known Allergies Allergy (Verified 09/14/23 08:19) Medication List - Last Reconciled 03/22/24 by Alexandre Whelan MD allopurinol 200 mg PO DAILY amlodipine 5 mg PO DAILY aripiprazole 5 mg PO DAILY aspirin 81 mg PO DAILY atorvastatin 20 mg PO DAILY blood pressure kit-extra large As directed blood sugar diagnostic (FreeStyle Lite Strips) As directed diclofenac sodium 1% 2 grams topical glipizide ER 10 mg PO QAM indomethacin 50 mg PO TID insulin glargine (Lantus Solostar U-100 Insulin) 24 units subcut DAILY lancets (TRUEplus Lancets) As directed losartan-hydrochlorothiazide 100-12.5 mg 1 tab PO DAILY 90 days omega 9-umv-odj-fish oil 300 mg (120 mg- 180mg)-1,000 mg 1 cap PO BID pantoprazole 20 mg PO QAM prazosin 1 mg PO BEDTIME tirzepatide (Mounjaro) mg subcut QWEEK HPI Comments Details: Pavel comes for follow-up. No new cardiac symptoms. Takes all his medications. He says blood pressure is well controlled usually at home in the 130s. Uses CPAP. Not exercise on a regular basis. However denies any exertional chest pain. No shortness of breath, orthopnea, PND, leg edema. No prolonged palpitation irregular heartbeat. He is not actively trying to lose weight at this point time. [facility] Medical History Obesity Diabetes HTN (hypertension) Surgical History Hx of appendectomy Family History Father No problems noted. Mother Sleep apnea History of thyroid disease Social History Alcohol intake: never Patient Tobacco Use Status: Current everyday Tobacco user Cigarette Packs Per Day: 0.5 Review of Systems Const Denies chills, Denies fatigue, Denies fever(s), Denies frequent falls, Denies weakness, Denies weight gain and Denies weight loss ENT Denies dizziness Card Denies chest pain, Denies leg edema, Denies lightheadedness, Denies palpitations, Denies dyspnea, Denies dyspnea on exertion, Denies orthopnea and Denies other (loss of consciousness) Resp Denies cough, Denies dyspnea and Denies dyspnea on exertion GI Denies hematochezia and Denies change in stool character Musc Denies abnormal gait, Denies muscle weakness, Denies numbness, Denies radiating pain into limb and Denies tingling Neuro Denies abnormal gait, Denies dizziness, Denies frequent falls, Denies numbness, Denies tingling and Denies weakness Endo Denies fatigue and Denies palpitations Physical Exam Vital Signs: Last Vital Signs BP 136/84 03/22/24 08:49 BMI result Body Mass Index 41.2 Const General: cooperative, healthy appearing, comfortable and no acute distress Orientation/consciousness: patient oriented x3 Neck Neck: Yes normal visual inspection Resp Effort & Inspection: normal respiratory effort Auscultation: clear to auscultation bilaterally, no crackles, no rales, no rhonchi and no wheezes Cardio Jugular venous distension: no JVD Rate: regular rate Rhythm: regular rhythm Heart sounds: S1 normal heart sound present, S2 normal heart sound present, no murmurs and no rubs GI Other: Obese, rounded Neuro General: patient oriented x3 Extrem General: Yes normal to inspection Psych Appearance: grossly normal Mental Status: mental status grossly normal Speech and movement: Normal speech and movement present Office Procedures EKG Details: EKG shows normal sinus rhythm with normal EKG [id number], Complete Assessment & Plan Assessment & Plan (1) HTN (hypertension): Code(s): I10 - Essential (primary) hypertension Category: Medical Qualifiers: Hypertension type: primary hypertension Qualified Code(s): I10 - Essential (primary) hypertension Plan: Hypertension has remained comorbidities issue in this young man with risk factors of morbid obesity obstructive sleep apnea. Discussed about participate in regular physical activity and weight loss program advised to continue monitor blood pressure at home. Importance of good blood pressure control was discussed. Continue current therapy. Continue aggressive diabetes management goal hemoglobin A1c less than 7% as well as goal LDL less than 70 mg/dL given his multiple risk factors. He would benefit significantly from weight loss program taken the liberty to refer him to bariatric surgery which he is interested in. Will follow up in the clinic in 2 years after an echocardiogram. Orders: Referrals Bariatric Surgery Referral E66.01 - Morbid (severe) obesity due to excess calories Coding Level of Care Code Est Pt Level 3 (79114) Diagnoses Primary hypertension I10 Hypertension type: primary hypertension CPT Codes EKG - CPT: [id number], Complete ([id number])
== END 2024-03-22 09:35 | disposition home or self-care (01) ==
PROVIDERS: PCP Nurse Practitioner Primary Care; Visit Provider Internal Medicine Cardiovascular Disease
DX: I10 Essential (primary) hypertension (principal)
CPT/HCPCS: 93010; 99213

== ENCOUNTER → 2024-03-22 08:35 | Outpatient (BNVA) | payer MEDICAID, SELFPAY | PROVIDERS: PCP Nurse Practitioner Primary Care; Visit Provider Internal Medicine Cardiovascular Disease | DX: I10 Essential (primary) hypertension (principal) | CPT/HCPCS: 93005; 99212 ==

== ENCOUNTER → 2024-03-25 09:16 | Outpatient (BNVA) | payer MEDICAID, SELFPAY | PROVIDERS: PCP Nurse Practitioner Primary Care; Visit Provider Surgery ==

== ENCOUNTER 2024-09-22 08:51 | Outpatient (AMB) | payer MEDICAID, SELFPAY ==
[2024-09-22 08:58] VITALS: BP 132/88; PULSE 76; O2SAT 98; BMI 43.2
--- NOTE | 2024-09-22 08:58 | MHC.OFFVIS ---
Vital Signs 09/22/24 08:58 Height 5 ft 11 in Weight 310 lb BMI 43.2 BP 132/88 Blood Pressure Location Rt brachial Position Sitting Pulse 76 Pulse Source Pulse Oximeter Pulse Oximetry (%) 98 Oxygen Delivery Method Room Air Intake Visit Reasons: Follow Up Intake Note: Patient presents for AARON . compliance report 09/15/24 Allergies No Known Allergies Allergy (Verified 09/22/24 09:04) HPI Comments Details: 38 y/o male patient presents for follow up of sleep study. The home sleep study result was significant for a moderately severe degree of sleep apnea. The total sleep time AHI was 20/hr, mild nocturnal hypoxemia with average O2 sat 92%, lowest O2 sat 68% and O2 sat below 88% for 20 min. Pt started APAP at [id number]. The CPAP compliance and therapy response (06/17/2024- 09/14/24) reviewed. The usage days 87% and the average usage hours 3 hrs 45min. AVergae hrs used 3hrs 45 min The max pressure was 13.2 and the residual AHI wa 1.2/hr. Patient ahs a new mask is able to use his CPAP better. He feels better when he uses the CPAP regularly . He has not rev=cieved supplies from his home care company . Pt reports he sleeps better with CPAP, and rested, and wakes up refreshed. [facility]LY [facility], [facility] Medical History Obesity Diabetes HTN (hypertension) Surgical History Hx of appendectomy Family History Father No problems noted. Mother Sleep apnea History of thyroid disease Social History Alcohol intake: never Patient Tobacco Use Status: Current everyday Tobacco user Cigarette Packs Per Day: 0.5 Review of Systems ENT Reports Normal hearing present Neuro Reports Normal hearing present Physical Exam Vital Signs: Last Vital Signs Pulse 76 09/22/24 08:58 BP 132/88 09/22/24 08:58 Pulse Ox 98 09/22/24 08:58 Oxygen Delivery Method Room Air 09/22/24 08:58 BMI result Body Mass Index 43.2 Const General: cooperative Nutritional Appearance: obese Orientation/consciousness: patient oriented x3 Neck Neck: Yes full ROM and Yes supple Resp Effort & Inspection: normal respiratory effort and able to speak in complete sentences Neuro General: patient oriented x3 Cranial nerves: Yes Bilaterally intact EOM present, Yes Normal facial strength present, Yes Midline tongue present, Yes Symmetric palate elevation present, Yes Normal hearing present, Yes Ability to bilaterally rotate head present and Yes Ability to bilaterally elevate shoulders present Cognition (Neuro): normal cognition Motor exam (neuro): 5/5 motor strength present throughout, Pronator motor function not present and no tremor noted Psych Appearance: grossly normal Mental Status: mental status grossly normal Speech and movement: Normal speech and movement present Attitude: cooperative Assessment & Plan Assessment & Plan (1) Obstructive sleep apnea: Comment: moderately to severe AARON. The total AHI was 20/hr and snoring for 27% of the sleep time. Mild nocturnal hypoxemia with average O2 sat 92% and the lowest O2 sat 68% and O2 sat below 88% for 20 min. Code(s): G47.33 - Obstructive sleep apnea (adult) (pediatric) Category: Medical Plan Advised patient to continue to use APAP [id number] as patient experiences good clinical effects. Stressed compliance, use CPAP nightly and more than 4 hrs. Wt reduction advised Supply order was faxed to [facility] Coding Level of Care Code Est Pt Level 4 (96843) Complex EM visit Add On G2211 Diagnoses Obstructive sleep apnea G47.33
== END 2024-09-22 09:30 | disposition home or self-care (01) ==
LOC: HO.HSMS 08:52
PROVIDERS: PCP Nurse Practitioner Primary Care; Visit Provider Psychiatry & Neurology Neurology
DX: G47.33 Obstructive sleep apnea (adult) (pediatric) (principal)
CPT/HCPCS: 99214

== ENCOUNTER → 2024-09-22 08:51 | Outpatient (BNVA) | payer MEDICAID, SELFPAY | PROVIDERS: PCP Nurse Practitioner Primary Care; Visit Provider Psychiatry & Neurology Neurology | DX: G47.33 Obstructive sleep apnea (adult) (pediatric) (principal) | CPT/HCPCS: 99212 ==

== ENCOUNTER 2024-10-28 09:51 | Outpatient (AMB) | payer MEDICAID, SELFPAY ==
--- NOTE | 2024-10-28 10:02 | A.OFFVIS_ITS ---
Vital Signs 10/28/24 10:03 Height 5 ft 11 in Weight 307 lb 6 oz BMI 42.9 BP 136/74 Blood Pressure Location Rt brachial Position Sitting Pulse 108 H Pulse Source Pulse Oximeter Pulse Oximetry (%) 97 Oxygen Delivery Method Room Air Intake Visit Reasons: 6 wks per MD Intake Note: Patient presents follow up AARON. Compliance in chart( 86/90 days, >=4hrs 63 days, Median pressure 8.9, Median leakage 6.3, AHI 2.9). Allergies No Known Allergies Allergy (Verified 10/28/24 10:06) HPI Comments Details: 38 y/o male patient presents for follow up of sleep study. His Peggy is here today and helps with history. HST c/w moderate degree of AARON AHI was 20/hr and nocturnal hypoxemia, his )2 desaturation was averaging between 92% and lowest saturation of 68% with below averaging to 88% for 20min. He sleeps so much better now with his CPAP machine and feels much better daily, however still having night terrors daily, and kicking his in his sleep. He denies Parasomnias, denies headache in the morning, denies spasms, or cramps in the legs. He continues to have episodes of hypoglycemia, and blood sugars are between 193 and fluctuate, being followed by his pharmacist weekly, he is on Tresiba, 72 units and Lispro 4 units. He is seeing his psychiatrist every 2 months for medication management and his therapist Donald Durbin for mood irritability, he takes aripiprazole and prazosin for sleep. His diet is poor BMI is 42.9, we discussed decreasing alcohol use, increasing walking daily for 30 min and drinking more water. [facility] Medical History Obesity Diabetes HTN (hypertension) Surgical History Hx of appendectomy Family History Father No problems noted. Mother Sleep apnea History of thyroid disease Social History Alcohol intake: never Patient Tobacco Use Status: Current everyday Tobacco user Cigarette Packs Per Day: 0.5 Review of Systems ENT Reports Normal hearing present Neuro Reports Normal hearing present Physical Exam Vital Signs: Last Vital Signs Pulse 108 H 10/28/24 10:03 BP 136/74 10/28/24 10:03 Pulse Ox 97 10/28/24 10:03 Oxygen Delivery Method Room Air 10/28/24 10:03 BMI result Body Mass Index 42.9 Const General: cooperative Nutritional Appearance: obese Orientation/consciousness: patient oriented x3 Neck Neck: Yes full ROM and Yes supple Resp Effort & Inspection: normal respiratory effort and able to speak in complete sentences Neuro General: patient oriented x3 Cranial nerves: Yes Bilaterally intact EOM present, Yes Normal facial strength present, Yes Midline tongue present, Yes Symmetric palate elevation present, Yes Normal hearing present, Yes Ability to bilaterally rotate head present and Yes Ability to bilaterally elevate shoulders present Cognition (Neuro): normal cognition Motor exam (neuro): 5/5 motor strength present throughout, Pronator motor function not present and no tremor noted Psych Appearance: grossly normal Mental Status: mental status grossly normal Speech and movement: Normal speech and movement present Attitude: cooperative Results Reviewed Results Reviewed: Jun 2024- September 2024 total uses 86/90 days and 96% >4 hours 63 days and 70% Press 6-20cm H20 Press therapy 9-12.5cmH20 Leaks / min 6.3 - 63.1 and AHI is 2.9/ hr Assessment & Plan Assessment & Plan (1) Obstructive sleep apnea: Comment: moderately to severe AARON. The total AHI was 20/hr and snoring for 27% of the sleep time. Mild nocturnal hypoxemia with average O2 sat 92% and the lowest O2 sat 68% and O2 sat below 88% for 20 min. Code(s): G47.33 - Obstructive sleep apnea (adult) (pediatric) Category: Medical (2) Night terrors: Code(s): F51.4 - Sleep terrors [night terrors] Category: Medical (3) RLS (restless legs syndrome): Code(s): G25.81 - Restless legs syndrome Category: Medical (4) Obesity: Code(s): E66.9 - Obesity, unspecified Category: Medical Qualifiers: Obesity type: due to excess calories Obesity classification: adult class 3 (BMI >= 40) Serious obesity comorbidity presence: with serious comorbidity Body mass index: BMI 40.0-44.9 Qualified Code(s): E66.01 - Morbid (severe) obesity due to excess calories; Z68.41 - Body mass index [BMI] 40.0- 44.9, adult (5) Obesity: Code(s): E66.9 - Obesity, unspecified Category: Medical Qualifiers: Obesity type: due to excess calories Obesity classification: adult class 3 (BMI >= 40) Serious obesity comorbidity presence: with serious comorbidity Body mass index: BMI 40.0-44.9 Qualified Code(s): E66.01 - Morbid (severe) obesity due to excess calories; Z68.41 - Body mass index [BMI] 40.0- 44.9, adult Plan AARON continue to CPAP as patient experiences good clinical effects. Stressed compliance, use CPAP nightly and more than 4 hrs. Obesity Wt reduction continue is on Monjarou subcut weekly and walking daily 30 min. Night terrors continue Prazosin and working with therapist 2-3 x a week with [facility] for sleep. Supply order was faxed to [facility] for small sized mask, and hoses. Orders: Orders Comprehensive Met. Panel Today E66.01 - Morbid (severe) obesity due to excess calories, Z68.41 - Body mass index [BMI] 40.0-44.9, adult TSH reflex Free T4 Today E66.01 - Morbid (severe) obesity due to excess calories, Z68.41 - Body mass index [BMI] 40.0-44.9, adult Vitamin B12 and Folate Today E66.01 - Morbid (severe) obesity due to excess calories, Z68.41 - Body mass index [BMI] 40.0-44.9, adult Vitamin D 25-OH Total Today E66.01 - Morbid (severe) obesity due to excess calories, F51.4 - Sleep terrors [night terrors], G25.81 - Restless legs syndrome, Z68.41 - Body mass index [BMI] 40.0-44.9, adult Ferritin Today F51.4 - Sleep terrors [night terrors], G25.81 - Restless legs syndrome Homocysteine Today G25.81 - Restless legs syndrome, G47.9 - Sleep disorder, unspecified, R53.83 - Other fatigue Methylmalonic Acid Today F51.4 - Sleep terrors [night terrors], G25.81 - Restless legs syndrome, G47.9 - Sleep disorder, unspecified, R53.83 - Other fatigue Hemoglobin A1c Today E66.01 - Morbid (severe) obesity due to excess calories, Z68.41 - Body mass index [BMI] 40.0-44.9, adult Complete Blood Count no Diff Today E66.01 - Morbid (severe) obesity due to excess calories, Z68.41 - Body mass index [BMI] 40.0-44.9, adult Lipid Panel with Reflex Today E66.01 - Morbid (severe) obesity due to excess calories, Z68.41 - Body mass index [BMI] 40.0-44.9, adult Patient Instructions: Patient Education: Use CPAP therapy as directed accordingly for a minimum of 4-6 hours per night. Each sleep cycle is 90 min. N1, N2, N3 and REM, thus cycling through these 4 phases reaching REM allows the Hypothalamus signalling to the Pituitary gland to release GNRH, GHRH, TSH, CRH etc. for growth tissue repair, mood and immunity. If you experience any difficulties with your machine reach out to your cpap provider, and or [facility] for replacements, adjustments of masks, or pressure settings. Download the Trefis steve to monitor your own sleep cycle nightly. Write down your questions and lets discuss them. Wash the mask daily,replace hoses, change filters, fill your reservoir with distilled water as needed. Walk daily for 30 min, complete labs, f/u with PCP Coding Level of Care Code Est Pt Level 4 (85841) Diagnoses Obstructive sleep apnea G47.33 Night terrors F51.4 RLS (restless legs syndrome) G25.81 Class 3 severe obesity due to excess calories with serious comorbidity and body mass index (BMI) of 40.0 to 44.9 in adult E66.01; Z68.41 Obesity type: due to excess calories Obesity classification: adult class 3 (BMI >= 40) Serious obesity comorbidity presence: with serious comorbidity Body mass index: BMI 40.0-44.9 Time Spent (min) 30 Comment patient education
[2024-10-28 10:03] VITALS: BP 136/74; PULSE 108; O2SAT 97; BMI 42.9
--- OUTSIDE RECORDS SUMMARY | 2024-10-28 10:41 | XMS_ITS | Clinical Summary ---
Author Organization [facility] it Address [address] [place] [address] Care Team Providers Care Tax Manager Name Role Phone Unavailable Primary Care Provider Unavailabl e Social History Tobacco Use Types Packs/Day Years Used Date Smoking Tobacco: Never Assessed Sex and Gender Information Value Date Recorded Sex Assigned at Not on file Legal Sex Male 10:26 AM EST Gender Identity Not on file Sexual Orientation Not on file Plan of Treatment Health Maintenance Due Date Last Done Comments DTaP,Tdap,and Td Vaccines (1 - Tdap) 2005 Hepatitis B Vaccines (1 of 3 - 19+ 3-dose series) 2005 COVID-19 Vaccine (2023-2 5 season) 2024 Influenza Vaccine (Season Ended) 2025 HIB Vaccines Aged Out No longer eligi ble based on patient's age to complete this topic HPV Vaccines Aged Out No longer eligi ble based on patient's age to complete this topic Hepatitis A Vaccines Aged Out No long er eligible based on patient's age to complete this topic IPV Vaccines Aged Out No longer eligi ble based on patient's age to complete this topic MMR Vaccines Aged Out No longer eligi ble based on patient's age to complete this topic Meningococcal ACWY Vaccine Aged Out N o longer eligible based on patient's age to complete this topic Meningococcal B Vaccine Aged Out No l onger eligible based on patient's age to complete this topic Pneumococcal Vaccine: Pediat rics (0 to 5 Years) and At-Risk Patients (6 to 64 Years) Aged Out No longer eligible b ased on patient's age to complete this topic RSV Immunization Patients Un irving 20 months Aged Out No longer eligible b ased on patient's age to complete this topic Varicella Vaccines Aged Out No longer eligible based on patient's age to complete this topic
== END 2024-10-28 10:39 | disposition home or self-care (01) ==
LOC: HO.HSMS 09:54
PROVIDERS: PCP Nurse Practitioner Primary Care; Visit Provider Physician Assistant Medical
DX: G47.33 Obstructive sleep apnea (adult) (pediatric) (principal); F51.4 Sleep terrors [night terrors]; G25.81 Restless legs syndrome; E66.01 Morbid (severe) obesity due to excess calories; Z68.41 Body mass index [BMI] 40.0-44.9, adult
CPT/HCPCS: 99214

== ENCOUNTER → 2024-10-28 09:51 | Outpatient (BNVA) | payer MEDICAID, SELFPAY | PROVIDERS: PCP Nurse Practitioner Primary Care; Visit Provider Physician Assistant Medical | DX: G47.33 Obstructive sleep apnea (adult) (pediatric) (principal); G25.81 Restless legs syndrome; F51.4 Sleep terrors [night terrors]; E66.01 Morbid (severe) obesity due to excess calories; Z68.41 Body mass index [BMI] 40.0-44.9, adult | CPT/HCPCS: 99212 ==

== ENCOUNTER 2024-11-11 10:37 | Outpatient (REF) | payer MEDICAID, SELFPAY ==
--- OUTSIDE RECORDS SUMMARY | 2024-11-11 11:07 | XMS_ITS | Clinical Summary ---
Author Organization [facility] it Address [address] [place] [address] Care Team Providers Care Entry Level Software Developer Name Role Phone Unavailable Primary Care Provider [...]
[2024-11-11 12:07] LABS: Alanine Aminotransferase 114 U/L (0-40); Alkaline Phosphatase 92 U/L (39-117); Aspartate Amino Transferase 113 U/L (5-37); Bilirubin Direct 0.3 mg/dL (0.0-0.5); Bilirubin Total 0.8 mg/dL (0.0-1.0); Cholesterol 101 mg/dL (<200); HDL Cholesterol 28 mg/dL (>40); LDL Cholesterol Calculated 13 mg/dL (<100); Total Protein 7.4 g/dL (6.5-8.0); Triglycerides 302 mg/dL (<150)
== END 2024-11-11 10:38 | disposition home or self-care (01) ==
LOC: HO.HHCL 10:37
PROVIDERS: Visit Provider Nurse Practitioner Primary Care
DX: E11.69 Type 2 diabetes mellitus with other specified complication (principal); E78.5 Hyperlipidemia, unspecified; R74.01 Elevation of levels of liver transaminase levels; E11.65 Type 2 diabetes mellitus with hyperglycemia
CPT/HCPCS: 36415; 80061; 80076

== ENCOUNTER 2024-11-18 09:28 | Outpatient (REF) | payer MEDICAID, SELFPAY ==
--- OUTSIDE RECORDS SUMMARY | 2024-11-18 09:39 | XMS_ITS | Encounter Summary ---
Author Organization [employer] Address [address] [place] [address] Care Team Providers Care Clinical Social Work Aide Name Role Phone Gloria Cruz Primary Care Provider [phone] George Hays COMPLEX MANAGER Unavailable Unavailable Caio Briceño PharmD Unavailable [phone] Reason for Visit * Reason Onset Date Comments Nurse Triage 08/18/2023 Encounter Details Date Type Department Care Team (Late st Contact Info) Description 08/18/2023 Telephone [facility] [address] [place] [address] Gloria Cruz ANP [address] [place] [address] Nurse Triage Social History Tobacco Use Types Packs/Day Years Used Date Smoking Tobacco: Every Day Cigarettes Smokeless Tobacco: Never Alcohol Use Standard Drinks/Week Comments Not Currently 0 (1 standard drink = 0.6 oz pur e alcohol) Depression Answer Date Recorded Patient Health Questionnaire-9 Score 0 08/03/2023 Patient Health Questionnaire-9 Score 0 08/03/2023 Last PHQ-9: Questionnaire Data Not on file 0 08/03/2023 Housing Stability Answer Date Recorded What is your housing situation today? I have franko murdock 04/13/[address] you li ve. Do you have problems with any of the following? None of the above 04/13/2023 Food Insecurity Answer Date Recorded Within the past 12 months, y ou worried that your food would run out before you got money to buy more: Never True 04/13/2023 Within the past 12 months,th e food you bought just didn't last and you didn't have enough money to get more: Never True Transportation Answer Date Recorded In the past 12 months, has l ack of transportation kept you from medical appts, meetings, work or from getting things needed for daily living? No 04/13/2023 Utilities Answer Date Recorded In the past 12 months, has t he electric, gas, oil or water company threatened to shut off services in your home? No 04/13/2023 Depression Answer Date Recorded Patient Health Questionnaire-2 Score 0 08/03/2023 Sex and Gender Information Value Date Recorded Sex Assigned at Male 04/28/2022 10:14 AM EDT Legal Sex Male 10:14 AM EDT Gender Identity Male 04/28/2022 10:14 AM EDT Sexual Orientation Straight 04/28/2022 10 :14 AM EDT documented as of this encounter Miscellaneous Notes * Telephone Encounter - Analilia Dye RN - 08/18/2023 1:35 PM EST Called Pt. Partner. She states pt. Is Suffering from Balanitis x 1 week. Pt blood sugars are highersince the change to Mounjaro and pt. Believes that is the cause of Balanitis. Blood sugar scanner states high and then after pt. Administers his 30ux of insulin the number goes down to 304 and stays in the low 300's. Pt. Has just finished his second round of Mounjaro. Pt. States that his blood sugars were in the high 100's-200' on Trulicity. Pt has swelling, pain and discharge-whitish from penis.Pt. declining to come in and is requesting the cream that was ordered in past and also the oral medication. I looked in Nexgen and pt. Was prescribed Diflucan 150mg tablet and also Ketoconazole 2% cream to apply to affected area twice daily in past for Balanitis. Pt. Requesting these meds to be sent to Pharmacy. Pt. States that last time he came in for this another provider in walk [place] was very rough pulling his foreskin back and it caused him severe pain and does not want to come in. Please advise and call pt. Partner with decision to send medication or not. Per request. Protocol Used: Penis and Scrotum Symptoms (Adult) Protocol-Based Disposition: See in Office or Video Visit Today- Pt declines and wants medications sent to Pharmacy. Positive Triage Questions: * Pus (white, yellow) or bloody discharge from end of penis * Swollen foreskin (not circumcised) * All higher-acuity triage questions were negative * Telephone Encounter - Marli Giovanny - 08/18/2023 12:48 PM EST Symptom: Penis Symptoms Outcome: Talk to a nurse or provider within 15 minutes Reason: Severe pain now The caller accepted this outcome Please contact pt spouse at [phone] documented in this encounter Plan of Treatment Upcoming Encounters Date Type Department Care Team (Late st Contact Info) Description 12/16/2024 3:30 PM EDT Medication Management [address] [address] Caio Briceño, PharmD [address] [place] [address] 01/13/2025 1:00 PM EDT Immunization [address] [address] 02/10/2025 11:15 AM EDT Office Visit [address] [address] Gloria Cruz ANP [address] [place] [phone] documented as of this encounter Visit Diagnoses Not on filedocumented in this encounter Additional Health Concerns Assessment Noted Time PHQ-9 Depression Total Score: 0 08/03/19 24 2:06 PM EST documented as of this encounter Care Teams Clinical Social Work Aide Relationship Specialty Start Date End Date Gloria Cruz ANP [address] [place] [phone] PCP - General Family Medicine 02/11/21 George Hays FNP [address] [place] [address] Nurse Practitioner Family Medicine 05/25/23 Caio Briceño, PharmD [address] [place] [address] BREEZY Johansen [id number] Pharmacist Internal Medicine 02/01/24 documented as of this encounter
[2024-11-18 10:10] LABS: Hematocrit 38.5 % (42.0-52.0); Hemoglobin 14.2 g/dl (14.0-18.0); Mean Corpuscular HGB Conc 36.9 g/dl (31.0-36.0); Mean Corpuscular Hemoglobin 29.7 pg (27.0-33.0); Mean Corpuscular Volume 80.5 fL (80.0-98.0); Mean Platelet Volume 9.2 fL (9.4-12.4); Platelet Count 245 X10*3/uL (160-400); Red Blood Count 4.78 X10*6/uL (4.60-5.80); Red Cell Distribution Width 12.6 % (11.0-16.0); White Blood Count 5.1 X10*3/uL (4.8-10.8)
[2024-11-18 10:16] LABS: Estimated Average Glucose 171 mg/dL; Hemoglobin A1C 223.5373 umol/L; Hemoglobin A1c % 7.6 % (<6.0); Total Hemoglobin (HGBA1C) 3735.7152 umol/L
[2024-11-18 10:57] LABS: Alanine Aminotransferase 179 U/L (0-40); Albumin Level 4.3 g/dL (3.5-5.0); Alkaline Phosphatase 93 U/L (39-117); Anion Gap 12 (12-20); Aspartate Amino Transferase 137 U/L (5-37); Blood Urea Nitrogen 14 mg/dL (9-16); Calcium 8.9 mg/dL (8.4-10.2); Carbon Dioxide 26 mmol/L (22-29); Chloride 104 mmol/L (96-108); Cholesterol 103 mg/dL (<200); Estimated Glomerular Filt Rate > 60; Glucose Random 201 mg/dL (60-115); HDL Cholesterol 26 mg/dL (>40); LDL Cholesterol Calculated 20 mg/dL (<100); Potassium 3.4 mmol/L (3.3-5.1); Sodium 139 mmol/L (135-145); Total Protein 7.6 g/dL (6.5-8.0); Triglycerides 288 mg/dL (<150)
[2024-11-18 11:01] LABS: Ferritin 531 ng/mL (20-250); TSH reflex Free T4 3.32 uIU/mL (0.32-4.0); Vitamin D 25-OH Total 9.3 ng/mL (>30)
[2024-11-18 11:13] LABS: Folate 9.9 ng/mL (> or = 4.0); Vitamin B12 442 pg/mL (200-900)
[2024-11-18 11:56] LABS: Reflex LDLD? No
[2024-11-21 17:24] LABS: Homocysteine 9.7 umol/L (< or = 13.5)
[2024-11-23 04:56] LABS: Methylmalonic Acid 97 nmol/L (55-335)
== END 2024-11-18 09:29 | disposition home or self-care (01) ==
LOC: HO.LAB 09:28
PROVIDERS: PCP Nurse Practitioner Primary Care; Visit Provider Physician Assistant Medical
DX: E66.01 Morbid (severe) obesity due to excess calories (principal); Z68.41 Body mass index [BMI] 40.0-44.9, adult; R53.83 Other fatigue; G47.9 Sleep disorder, unspecified; G25.81 Restless legs syndrome; F51.4 Sleep terrors [night terrors]
CPT/HCPCS: 36415; 80053; 80061; 82306; 82607; 82728; 82746; 83036; 83090; 83921; 84443; 85027

== ENCOUNTER 2024-12-23 09:10 | Outpatient (REF) | payer MEDICAID, SELFPAY ==
--- NOTE | ~2024-12-23 | US_ITS ---
CLINICAL HISTORY: elevated liver enzymes US abdomen complete Comparison: None provided Findings: Pancreas is predominantly obscured. The aorta and inferior vena cava are normal caliber. Increased hepatic parenchymal echotexture. The liver is enlarged measuring 21.1 cm in greatest dimension. There is no intrahepatic bile duct dilatation. The common duct is for mm in diameter. The gallbladder is normal. There is no sonographic Duong sign. The main portal vein is antegrade. The right kidney is 12.3 cm in length. The left kidney is 11.8 cm in length. The spleen is normal. No ascites. IMPRESSION: 1. Hepatic steatosis and hepatomegaly. Normal splenic size. This document has been electronically signed by: Stephany Dill MD on 12/24/2024 09:09:18
--- OUTSIDE RECORDS SUMMARY | 2024-12-23 09:31 | XMS_ITS | Encounter Summary ---
Author Organization [employer] Address [address] [facility] [address] [place] [address] Care Team Providers Care Quarry Supervisor Open Pit Name Role Phone Gloria Cruz Primary Care Provider [phone] George Hays MEMORY CARE DIRECTOR Unavailable Unavailable Caio Briceño PharmD Unavailable [phone] Reason for Visit * Reason Onset Date Comments Nurse Triage 08/18/2023 Encounter Details Date Type Department Care Team (Late st Contact Info) Description 08/18/2023 Telephone [facility] [address] [place] [address] Gloria Cruz ANP [address] [place] [address] Nurse Triage Social History Tobacco Use Types [...] this outcome Please contact pt spouse at [phone] documented in this encounter Plan of Treatment Upcoming Encounters Date Type Department Care Team (Late st Contact Info) Description 01/13/2025 1:00 PM EDT Immunization [address] [phone] 02/10/2025 11:15 AM EDT Office Visit [address] [address] Gloria Cruz ANP [address] [place] [address] 03/31/2025 3:00 PM EDT Telemedicine [address] [address] Caio Briceño, PharmD [address] [place] [address] documented as of this encounter Visit Diagnoses Not on filedocumented in this encounter Additional Health Concerns Assessment Noted Time PHQ-9 Depression Total Score: 0 08/03/19 24 2:06 PM EST documented as of this encounter Care Teams Quarry Supervisor Open Pit Relationship Specialty Start Date End Date Gloria Cruz ANP [address] [place] [phone] PCP - General Family Medicine 02/11/21 George Hays FNP [address] [place] [phone] Nurse Practitioner Family Medicine 05/25/23 Caio Briceño, PharmD [address] [place] [address] [place] [address] Pharmacist Internal Medicine 02/01/24 documented as of this encounter
== END 2024-12-23 09:11 | disposition home or self-care (01) ==
LOC: HO.US 09:10
PROVIDERS: PCP Nurse Practitioner Primary Care; Visit Provider Nurse Practitioner Primary Care
DX: R74.01 Elevation of levels of liver transaminase levels (principal)
CPT/HCPCS: 76700

== ENCOUNTER → 2024-12-23 09:32 | Outpatient (BNV) | payer MEDICAID, SELFPAY | PROVIDERS: PCP Nurse Practitioner Primary Care; Visit Provider Radiology Diagnostic Radiology | DX: R16.0 Hepatomegaly, not elsewhere classified (principal) | CPT/HCPCS: 76700 ==

== ENCOUNTER 2025-03-17 13:53 | Outpatient (AMB) | payer MEDICAID, SELFPAY ==
--- NOTE | 2025-03-17 13:54 | MHC.OFFVIS ---
Vital Signs 03/17/25 13:55 Height 5 ft 11 in Weight 308 lb 10.354 oz BMI 43.0 BP 114/70 Blood Pressure Location Rt brachial Position Sitting Pulse 87 Intake Visit Reasons: Elevated LFTs Intake Note: New patient in office for elevated LFTs. CC: Patient denies having any GI symptoms. Allergies No Known Allergies Allergy (Verified 03/17/25 13:59) HPI HPI Elevated LFTs: Details: 39-YEAR-OLD MALE HERE for initial evaluation of transaminitis. He is referred by [facility]. PMX AARON Morbid obesity-BMI 42 -on Mounjaro Diabetes Hypothyroid Hypertension Anxiety Gout ? Schizophrenia-on Abilify History of alcohol abuse Chronic right shoulder pain GERD RLS * SURGICAL HISTORY Appendectomy * ALLERGIES: NKDA * [employer] LABS: Laboratory Tests 11/18/24 09:40 WBC 5.1 Hgb 14.2 Hct 38.5 L MCV 80.5 MCH 29.7 Plt Count 245 Estimated GFR > 60 Hemoglobin A1c % 7.6 H Ferritin 531 H Total Bilirubin 1.0 AST 137 H ALT 179 H Alkaline Phosphatase 93 TSH 3.32 ULTRASOUND OF THE ABDOMEN 12/16/2024 Findings: Pancreas is predominantly obscured. The aorta and inferior vena cava are normal caliber. Increased hepatic parenchymal echotexture. The liver is enlarged measuring 21.1 cm in greatest dimension. There is no intrahepatic bile duct dilatation. The common duct is for mm in diameter. The gallbladder is normal. There is no sonographic Duong sign. The main portal vein is antegrade. The right kidney is 12.3 cm in length. The left kidney is 11.8 cm in length. The spleen is normal. No ascites. IMPRESSION: 1. Hepatic steatosis and hepatomegaly. Normal splenic size. TODAY'S VISIT [facility] Medical History (Updated 03/17/25 @ 14:32 by KIMMY Mac) Obesity Shortness of breath Diabetes HTN (hypertension) Surgical History Hx of appendectomy Family History Father No problems noted. Mother Sleep apnea History of thyroid disease Social History Alcohol intake: never Patient Tobacco Use Status: Current everyday Tobacco user Cigarette Packs Per Day: 0.5 Review of Systems Const Denies fatigue, Denies fever(s), Denies night sweats, Denies poor appetite and Denies weight loss ENT Reports Normal hearing present, Denies dental pain, Denies dysphagia, Denies hearing loss, Denies mouth pain, Denies odynophagia, Denies throat swelling, Denies tongue swelling and Reports other (Dentition adequate) Card Reports no additional complaints Resp Reports no additional complaints GI Details: Denies abdominal pain, Denies melena, Denies bloating, Denies hematochezia, Denies constipation, Denies GI cramping, Denies dysphagia, Denies excessive flatus, Denies early satiety, Denies heartburn, Denies diarrhea, Denies nausea, Denies odynophagia, Denies vomiting and Denies hematemesis Skin/Breast Denies pruritus, Denies lesions, Denies rash and Denies jaundice Neuro Reports Normal hearing present and Denies Abnormal speech present Endo Denies fatigue Aller/Immun Denies throat swelling and Denies tongue swelling Physical Exam Const General: cooperative, no acute distress, well developed and well groomed Nutritional Appearance: well nourished and obese morbidly obese Orientation/consciousness: oriented to person, oriented to place and oriented to time Limitations: No language barrier HEENT Head: Yes normocephalic and Yes atraumatic Eyes General: appearance normal, both eyes and all related structures Pupils: Equal, round and reactive pupils present Neck Neck: Yes normal visual inspection and Yes no lymphadenopathy Thyroid: Thyroid normal Resp Effort & Inspection: normal respiratory effort and able to speak in complete sentences Auscultation: clear to auscultation bilaterally Cardio Rate: regular rate Rhythm: regular rhythm Heart sounds: Normal, physiologic split S2 sound present Peripheral pulses: radial pulses present and posterior tibial pulses present GI Inspection: No distended, Yes Abdominal panniculus present, Yes obesity and Yes striae Palpation (GI): Soft to palpation, nontender, no guarding, not rigid and Hepatosplenomegaly present Percussion: Yes normal to percussion Auscultation: normal bowel sounds Rectal Exam - Male: Yes deferred Skin General skin exam: no rashes or lesions noted, turgor normal, skin not dry, no jaundice, No spider nevi and no striae Rashes: no rashes Nails: normal Neuro General: oriented to person, oriented to place and oriented to time Cranial nerves: Yes Equal, round and reactive pupils present and Yes Normal hearing present Speech: No Abnormal speech present Extrem General: Yes normal to inspection, No clubbing, No cyanosis and No edema Psych Appearance: grossly normal and well kempt Mental Status: mental status grossly normal Speech and movement: Normal speech and movement present Affect: normal affect Attitude: Guarded attititude/behavior present Thought process: Normal thought process present and not confabulating Thought content: Normal thought content present Insight: Fair insight present (Psych) and Limited insight present (Psych) Judgement: Fair judgement present (Psych) and Limited judgement present (Psych) Assessment & Plan Assessment & Plan (1) Transaminitis: Comment: BASELINE LABS 11/18/2024 Plt Count 245 Estimated GFR > 60 Hemoglobin A1c % 7.6 H Ferritin 531 H Total Bilirubin 1.0 AST 137 H ALT 179 H Alkaline Phosphatase 93 CURRENT LABS ULTRASOUND OF THE ABDOMEN 12/16/2024 ULTRASOUND OF THE ABDOMEN 12/16/2024 Findings: Pancreas is predominantly obscured. The aorta and inferior vena cava are normal caliber. Increased hepatic parenchymal echotexture. The liver is enlarged measuring 21.1 cm in greatest dimension. There is no intrahepatic bile duct dilatation. The common duct is for mm in diameter. The gallbladder is normal. There is no sonographic Duong sign. The main portal vein is antegrade. The right kidney is 12.3 cm in length. The left kidney is 11.8 cm in length. The spleen is normal. No ascites. IMPRESSION: 1. Hepatic steatosis and hepatomegaly. Normal splenic size. Code(s): R74.01 - Elevation of levels of liver transaminase levels Category: Medical (2) Morbid obesity with BMI of 40.0-44.9, adult: Code(s): E66.01 - Morbid (severe) obesity due to excess calories; Z68.41 - Body mass index [BMI] 40.0-44.9, adult Category: Medical (3) Diabetes: Code(s): E11.9 - Type 2 diabetes mellitus without complications Category: Medical Plan - The patient is a 39-year-old male presenting with concerns about liver function test results. - Liver function tests prompted this evaluation following the details provided by his primary care doctor. He currently has no signs or symptoms of liver disease. He is morbidly obese and diabetic. He is currently on Mounjaro which unfortunately has not promoting weight loss. - Ultrasound findings demonstrated the presence of fatty liver and slight liver enlargement. - The patient reports significant episodic weekend alcohol consumption (around 10 shots and 15 beers PER DAY). - Family history includes relatives (cousin and aunt) with fatty liver. - There is controlled blood sugar status. - Alcohol was previously ceased for around a year, suggesting an ability to refrain from drinking. - No personal or proximal family history of liver disease is identified beyond noted familial instances. - The patient denies intravenous drug use. I educated he and his family member accompanying him that my role will be to do additional testing to determine if there is any other reversible pathology contributing to his extremely elevated transaminases. This would include infectious or autoimmune as well as some other metabolic issues. I am sending him for additional blood testing. I also spent time educating him that the most likely diagnosis is fatty liver given his total metabolic profile morbid obesity he likely needs to have complete alcohol cessation to best take care of his future liver health. I explained that I am not inferring that he is alcoholic, but I am saying that people who have fatty liver generally can not tolerate any regular alcohol intake without progressing to liver cancer or cirrhosis. Return office visit in 6 weeks to review the lab results Orders: Orders Alpha Fetoprotein Today R74.01 - Elevation of levels of liver transaminase levels GAGE Reflex Titer and Pattern Today R74.01 - Elevation of levels of liver transaminase levels Liver Fibrosis Pnl Today R74.01 - Elevation of levels of liver transaminase levels Liver Panel Today R74.01 - Elevation of levels of liver transaminase levels Hepatitis A,B,C Profile Today R74.01 - Elevation of levels of liver transaminase levels HIV Ab/Ag Today R74.01 - Elevation of levels of liver transaminase levels Mitochondrial Antibody Today R74.01 - Elevation of levels of liver transaminase levels Smooth Muscle Antibody Today R74.01 - Elevation of levels of liver transaminase levels Phosphatidylethanol, Blood Today R74.01 - Elevation of levels of liver transaminase levels Coding Level of Care Code New Pt Level 3 (46745) Diagnoses Transaminitis R74.01 Morbid obesity with BMI of 40.0-44.9, adult E66.01; Z68.41 Diabetes E11.9
[2025-03-17 13:55] VITALS: BP 114/70; PULSE 87; BMI 43.0
--- OUTSIDE RECORDS SUMMARY | 2025-03-17 14:01 | XMS_ITS | Encounter Summary ---
Author Organization [employer] Address [address] [facility] [address] [place] [address] Care Team Providers Care Sulfate Drier Machine Operator Name Role Phone Gloria Cruz Primary Care Provider [phone] George Hays PRIVATE WEALTH ADVISOR Unavailable Unavailable Caio Briceño PharmD Unavailable [phone] Reason for Visit * Reason Onset Date Comments Call Back Request 12/25/2023 Encounter Details Date Type Department Care Team ([facility] st Contact Info) Description 12/25/2023 Telephone [facility] MED[facility]INE [address] [place] [address] Gloria Cruz ANP [address] [place] [address] Call Back Request Social History Tobacco Use Types Packs/Day Years Used Date Smoking Tobacco: Every Day Cigarettes Smokeless Tobacco: Never Alcohol Use Standard Drinks/Week Comments Not Currently 0 (1 standard drink = 0.6 oz pur e alcohol) Depression Answer Date Recorded Patient Health Questionnaire-9 Score 0 09/29/2023 Patient Health Questionnaire-9 Score 0 09/29/2023 Last PHQ-9: Questionnaire Data Not on file 0 09/29/2023 Housing Stability Answer Date Recorded What is [...] Date Recorded Patient Health Questionnaire-2 Score 0 09/29/2023 Sex and Gender Information Value Date Recorded Sex Assigned at Male 04/28/2022 10:14 AM EDT Legal Sex Male 10:14 AM EDT Gender Identity Male 04/28/2022 10:14 AM EDT Sexual Orientation Straight 04/28/2022 10 :14 AM EDT documented as of this encounter Miscellaneous Notes * Telephone Encounter - Amee Long - 12/25/2023 3:19 PM EDT Tc from Andreina (partner) requesting a call back from PCP BREEZY, no further details provided. documented in this encounter Plan of Treatment Upcoming Encounters Date Type Department Care Team (Late st Contact Info) Description 03/31/2025 3:00 PM EDT Telemedicine [facility] MEDICINE [address] [place] [address] Caio Briceño PharmD [address] [place] [address] documented as of this encounter Visit Diagnoses Not on filedocumented in this encounter Additional Health Concerns Assessment Noted Time PHQ-9 Depression Total Score: 0 09/29/19 24 9:20 AM EDT documented as of this encounter Care Teams Sulfate Drier Machine Operator Relationship Specialty Start Date End Date Gloria Cruz ANP [address] [place] [phone] PCP - General Family Medicine 02/11/21 George Hays FNP [address] [place] [phone] Nurse Practitioner Family Medicine 05/25/23 Caio Briceño PharmD [address] [place] [phone] Pharmacist Internal Medicine 02/01/24 documented as of this encounter
--- OUTSIDE RECORDS SUMMARY | 2025-03-17 14:01 | XMS_ITS | Encounter Summary ---
Author Organization [employer] Address [address] [place] [address] [address] [place] [address] Care Team Providers Care Costume Design Teacher Name Role Phone Gloria Cruz Primary Care Provider [phone] George Hays ANIMAL [employer] CODE ENFORCEMENT OFFICER Unavailable Unavailable Caio Briceño PharmD Unavailable [phone] Encounter Details Date Type Department Care Team (Late st Contact Info) Description 09/01/2022 Orders Only [facility] MEDICINE [address] [place] [id number] Silvia Keyes LPN Social History Tobacco Use Types Packs/Day Years Used Date Smoking Tobacco: Never Assessed Sex and Gender Information Value Date Recorded Sex Assigned at Male 04/28/2022 10:14 AM EDT Legal Sex Male 10:14 AM EDT Gender Identity Male 04/28/2022 10:14 AM EDT Sexual Orientation Straight 04/28/2022 10 :14 AM EDT documented as of this encounter Plan of Treatment Upcoming Encounters Date Type Department Care Team (Late st Contact Info) Description 03/31/2025 3:00 PM EDT Telemedicine [facility] MED[facility]INE [address] [place] [phone] Caio Briceño, PharmD [address] [place] [address] documented as of this encounter Visit Diagnoses Not on filedocumented in this encounter Care Teams Costume Design Teacher Relationship Specialty Start Date End Date Gloria Cruz ANP [address] [place] [phone] PCP - General Family Medicine 02/11/21 George Hays FNP [address] [place] [address] Nurse Practitioner Family Medicine 05/25/23 Caio Briceño, BaljinderD [address] [place] [address] Pharmacist Internal Medicine 02/01/24 documented as of this encounter
--- OUTSIDE RECORDS SUMMARY | 2025-03-17 14:01 | XMS_ITS | Clinical Summary ---
Author Organization [employer] Address [address] [facility] [address] [place] [address] Care Team Providers Care Continuous Still Operator Name Role Phone Ankur Nicole PETRONA Primary Care Provider [phone] George Hays FEATHER BALER Unavailable Unavailable Caio Briceño PharmD Unavailable Allergies Active Allergy Reactions Criticality Noted Date Comments Metformin Rash Low 12/04/2020 Medications * This document contains information received from the source organization and may not represent a complete record from that organization. Aspirin Low Dose 81 MG EC tablet Take 81 mg by mouth in the morning. 04/01/20 22 Active Blood Pressure kit 1 kit in the morning. 1 kit 09/24/19 23 Active Continuous Blood Gluc It Administrative Assistant (Burbio.comStyle Baljinder 2 [place]) device Scan sensor every 8 hours 1 each 06/12/20 23 Active calcipotriene (Dovonex) 0.005 % ointmentIndication s:Psoriasis vulgaris Apply topically 2 times daily. 60 g 3 08/07/19 24 Active betamethasone, augmented, (Diprolene) 0.05 % ointmentIndication s:Psoriasis vulgaris Apply topically 2 times daily. 50 g 3 08/07/19 24 Active losartan-hydroCHLO ROthiazide (Hyzaar) 100-12.5 MG tablet Take 1 tablet by mouth in the morning. 02/02/20 24 Active Lancets 33G miscIndications:Ty pe 2 diabetes mellitus with hyperlipidemia (CMS/HCC) ([facility]) Use to test blood sugar as needed for sensor failure or hypoglycemia (up to QID) 100 each 11 06/10/20 24 Active insulin lispro (HumaLOG KWIKPEN) 100 UNIT/ML injectionIndicatio ns:Type 2 diabetes mellitus with hyperlipidemia (CMS/HCC) ([facility]) Inject 4 units under the skin once daily before dinner. 15 mL 3 07/27/19 25 Active Continuous Glucose Sensor (FreeStyle Baljinder 3 Plus Sensor) miscIndications:Ty pe 2 diabetes mellitus with hyperlipidemia (CMS/HCC) ([facility]) Apply 1 Device topically every 15 days. 2 each 07/27/19 25 Active ketoconazole (NIZOral) 2 % creamIndications:B alanitis Apply topically 2 times daily. For 2-4 weeks 60 g 07/28/19 25 Active Pentips Generic Pen [place] 32G X 4 MM misc USE DIRECTED EVERY DAY 100 each 2 08/04/19 25 Active glucose blood (FreeStyle Precision Jorge Test) test strip USE DIRECTED TO TEST BLOOD SUGAR FOUR TIMES DAILY 100 strip 08/26/19 25 Active Alcohol Swabs (Alcohol Prep) 70 % pads USE DIRECTED THREE TIMES DAILY 100 each 09/07/19 25 Active glipiZIDE XL (Glucotrol XL) 10 MG 24 hr tabletIndications: Type 2 diabetes mellitus with hyperlipidemia (CMS/HCC) ([facility]) TAKE 1 TABLET BY MOUTH EVERY MORNING DO NOT BREAK, CRUSH, DISSOLVE OR CHEW 90 tablet 3 09/09/19 25 Active allopurinol (Zyloprim) 100 MG tabletIndications: Idiopathic chronic gout without tophus, unspecified site TAKE 2 TABLETS BY MOUTH ONCE DAILY IN THE MORNING 180 tablet 2 09/09/19 25 Active ARIPiprazole (Abilify) 5 MG tablet TAKE 1 TABLET BY MOUTH EVERY MORNING 90 tablet 3 09/09/19 25 Active insulin degludec (Tresiba FlexTouch) 200 UNIT/ML injectionIndicatio ns:Type 2 diabetes mellitus with hyperlipidemia (CMS/HCC) ([facility]) Inject 70 units under the skin once daily 18 mL 11 09/23/19 25 Active Mounjaro 15 MG/0.5ML solution auto-injectorIndic ations:Type 2 diabetes mellitus with hyperlipidemia (CMS/HCC) ([facility]) INJECT ONE PEN (=15MG) SUBCUTANEOUSLY ONCE A WEEK DIRECTED 2 mL 5 11/30/19 25 Active D3 Super Strength 50 MCG (2000 UT) capsule Take 50 mcg by mouth in the morning. 11/23/19 25 Active omega-3 acid ethyl esters (Lovaza) 1 g capsuleIndications :Hypertriglyceride ginger Take 2 capsules (2 g) by mouth 2 times daily. 120 capsule 11 12/22/19 25 026 Active atorvastatin (Lipitor) 20 MG tabletIndications: Hyperlipidemia associated with type 2 diabetes mellitus (CMS/HCC) TAKE 1 TABLET BY MOUTH AT BEDTIME 90 tablet 01/04/20 25 Active prazosin (Minipress) 1 MG capsule TAKE 1 CAPSULE BY MOUTH AT BEDTIME 90 capsule 01/04/20 25 Active pantoprazole (ProtoNix) 20 MG EC tabletIndications: Alcohol consumption binge drinking TAKE 1 TABLET BY MOUTH EVERY MORNING 90 tablet 01/04/20 25 Active amLODIPine (Norvasc) 5 MG tabletIndications: Essential hypertension TAKE 1 TABLET BY MOUTH AT BEDTIME 90 tablet 01/04/20 25 Active Active Problems Problem Noted Date Diagnosed Date Metabolic dysfunction-associ ated steatotic liver disease (MASLD) 02/10/2025 Alcohol abuse 02/10/2025 Elevated LFTs 02/25/2024 Overview (02/10/2025): Referred to GI 10/2024 FIB-4 Calculation: 1.59 at 11/18/2024 9:40 AM Calculated from: SGOT/AST: 137 U/L at 11/18/2024 9:40 AM SGPT/ALT: 179 U/L at 11/18/2024 9:40 AM Platelets: 245 X10*3/uL at 11/18/2024 9:40 AM Age: 39 years US in chart Lifestyle recommendations: be as active as able, ideally exercise 150min moderate intensity or 75min vigorous intensity weekly; increase intake of vegetables, fruits, whole grains, fish. Try to minimize intake of sugary or greasy food and drink. Use olive oil or vegetable, peanut, canola, or similar oil for cooking. Decrease or stop drinking alcohol if you drink, quit/decrease smoking if you smoke. Smoking 06/30/2023 Overview (06/30/2023): Quit 06/29/23 from 12 PPD, using nicotine vape AARON (obstructive sleep apnea) 06/30/2023 Overview (06/30/2023): now following w/ Sleep med, Dr. Thompson. Pt had a home sleep study done in Mar, 2023. The result was significant for moderately to severe AARON. The total AHI was 20/hr and snoring for 27% of the sleep time. Mild nocturnal hypoxemia with average O2 sat 92% and the lowest O2 sat 68% and O2 sat below 88% for 20 min. Rx'd APAP [id number]. Mood disorder 02/02/2023 Assessment & Plan (09/29/2023 9:53 AM EDT): With history of early life trauma, consider PTSD. Hx self-harm and suicide attempt, none since 2005. Presented with mood swings lasting hours up to days, hallucinations including seeing Demons and sensing presence of family member, now controlled. Hx PERCY (alcohol, cocaine, MJ) all stopped at age 36. Tobacco abuse (5 cigs/day). Support from therapist, female partner, mother. Still finding Aripiprazole 5 mg very effective for mood. For poor sleep and nightmares Prazosin 1 mg at bedtime has worked well. As this provider will be retiring, he will now follow up with his PCP for continued psychiatric medication management. For any questions or concerns, call [facility]. He will continue with therapist as usual, but unfortunately there is no prescriber available at that agency. I have wished him well. He agrees with the plan. Assessment & Plan (08/03/2023 2:26 PM EST): With history of early life trauma, consider PTSD. Hx self-harm and suicide attempt none since 2005. Mood swings can last hours up to days. Presented with hallucinations include seeing Demons and sensing presence of family member, now controlled. Hx PERCY (alcohol, cocaine, MJ) all stopped at age 36. Tobacco abuse (5 cigs/day) and would like to quit. Support from therapist, female partner, mother. Still finding Aripiprazole 5 mg very effective for mood and will continue. For poor sleep and nightmares will start Prazosin 1 mg at bedtime. Continue with therapist as usual. On 06/01/2023 provider informed pt that I would be retiring in approx 1/2 year, and suggested he speak with therapist about referral to agency psychiatric prescriber. Meanwhile, F/U with me in 2 months. He agrees with the plan. Assessment & Plan (06/01/2023 4:34 PM EST): With history of early life trauma, consider PTSD. Hx self-harm and suicide attempt none since 2005. Mood swings can last hours up to days. Hallucinations include seeing Demons and sensing presence of family member. Hx PERCY (alcohol, cocaine, MJ) all stopped at age 36. Tobacco abuse (5 cigs/day) and would like to quit. Support from therapist, female partner, mother. Finding Aripiprazole 5 mg very effective for mood and will continue. Did not discuss hallucinations today. Continue with therapist as usual. Today 06/01/2023 provider informed pt that I would be retiring in approx 1/2 year, and suggest he speak with therapist about referral to agency psychiatric prescriber. Meanwhile, F/U with me in 2 months. He agrees with the plan. Assessment & Plan (04/20/2023 4:59 PM EDT): With history of early life trauma, consider PTSD. Hx self-harm and suicide attempt none since 2005. Mood swings can last hours up to days. Hallucinations include seeing Demons and sensing presence of family member. Hx PERCY (alcohol, cocaine, MJ) all stopped at age 36. Tobacco abuse (5 cigs/day) and would like to quit. Support from therapist, female partner, mother. Pt reported good early mood improvement ( focused, not grumpy ) with Seroquel 25 mg every bedtime, no further issue with peculiar dreams. Visual hallucinations also much improved, although not completely eradicated. Unfortunately he now says the Seroquel 25 mg isnt helping his mood enough and is making him feel too sedated. Sleeps well without medication. He will now stop the Seroquel 25 mg. Instead he will start Abilify 5 mg once daily. Continue with therapist as usual and F/U with me in 4-6 weeks. He agrees with the plan. Assessment & Plan (03/16/2023 3:44 PM EDT): With history of early life trauma, consider PTSD. Hx self-harm and suicide attempt none since 2005. Mood swings can last hours up to days. Hallucinations include seeing Demons and sensing presence of family member. Hx PERCY (alcohol, cocaine, MJ) all stopped at age 36. Tobacco abuse (5 cigs/day) and would like to quit. Support from therapist, female partner, mother. Pt reports good early mood improvement ( focused, not grumpy ) with Seroquel 25 mg every bedtime, no further issue with peculiar dreams. Visual hallucinations also much improved, although not completely eradicated. Will continue Seroquel 25 mg, but may increase as needed in future. Continue with therapist as usual and F/U with me in 4-6 weeks. He agrees with the plan. Assessment & Plan (02/23/2023 5:17 PM EDT): With history of early life trauma, consider PTSD. Hx self-harm and suicide attempt none since 2005. Mood swings can last hours up to days. Hallucinations include seeing Demons and sensing presence of family member. Hx PERCY (alcohol, cocaine, MJ) all stopped at age 36. Tobacco abuse (5 cigs/day) and would like to quit. Support from therapist, female partner, mother. Pt reports good early mood improvement with Seroquel 25 mg every bedtime, but notes recent onset of peculiar dreams (although did previously report hx nightmares). He elects to continue the Seroquel 25 mg for another few weeks and then we will reassess. Did not discuss hallucinations today. Continue with therapist as usual and F/U with me in 3 weeks. He agrees with the plan. Assessment & Plan (02/02/2023 5:29 PM EDT): With history of early life trauma, consider PTSD. Hx self-harm and suicide attempt none since 2005. Mood swings can last hours up to days. Hallucinations include seeing Demons and sensing presence of family member. Hx PERCY (alcohol, cocaine, MJ) all stopped at age 36. Tobacco abuse (5 cigs/day) and would like to quit. Support from therapist, female partner, mother. Pt will start Seroquel 25 mg every bedtime. Explained that this might cause sedation, but was a low dose and he might not notice significant improvement. We would meet frequently and adjust meds as needed. Cautioned that Seroquel could affect blood glucose so do check BG regularly. F/U with me in 3 weeks. He agrees with the plan. Anxiety 11/17/2022 Assessment & Plan (11/17/2022 8:48 AM EDT): Assessment: Patient with feeling nervous/anxious/on edge, inability to stop worrying, worrying about different things, trouble relaxing, and being easily annoyed/irritable. He denies SI/HI. Feliciano douglas reports a history of self harm and has not engaged in cutting for the past 17 years. This is in the context of history of anxiety, housing issues, unemployment, and financial instability. Patient will benefit from OP therapy and psychopharmacology. At this time Feliciano Hollis meets criteria for Visit Diagnoses: Problem List Items Addressed This Visit Other Anxiety Patient ready to address current needs Yes Strengths include utilizing healthy coping skills to assist with anxiety, as well as reaching out for assistance. PLAN: 1. Follow up with [facility]: Not recommended for follow-up 2. Patient goal is to engage in services (therapy and pharmacology). 3. Behavioral Recommendations a. Patient will utilize coping skills dicussed during encounter b. Patient will comply with medication, once service begins c. 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 Switched to Mounjaro and A1c has not yet normalized despite reported compliance. Will consider switch to ozempic if needed. PO Rybelsus would not be potent enough. Rash to metformin. Not on Jardiance d/t recurrent balanitis. Statin: yes ASA: yes KELI/ARB: yes Foot exam 11/2022 normal Eye exam: 03/2023, update upcoming Dental follow-up recommended History of alcohol abuse 11/20/2016 Hypertriglyceridemia 11/20/2016 Hyperuricemia 11/20/2016 Acquired hypothyroidism 11/19/2016 Essential hypertension 11/19/2016 Overview (02/25/2024): Amlodipine 5 mg po daily Losartan-HCTZ 100-12.5 mg po daily Continue to encourage low salt diet, regular exercise, home BP monitoring, compliance with medications. Call clinic if BP is frequently >150/90 Go to ED/call 911 if > 170/100 and having sx such as DHILLON, visual changes, chest pain, SOB Last renal function: Lab Results Component Value Date GLUCOSE 266 (H) 12/29/2023 NA 137 12/29/2023 K 3.8 12/29/2023 CO2 26 12/29/2023 CL 101 12/29/2023 BUN 12 12/29/2023 CREATININE 1.00 12/29/2023 EGFR >60 12/29/2023 Lab Results Component Value Date MICROALBCREA 23 03/21/2021 Lab Results Component Value Date MICROALBCREU 20.2 12/29/2023 Chronic gouty arthritis 11/19/2016 Tinea pedis 11/19/2016 Encounters Date Type Department Care Team Description 02/10/2025 11:15 AM EDT Office Visit [address] [address] Ankur Nicole ANP Type 2 diabetes mellitus with hyperlipidemia (CMS/HCC) (CMS/HCC) (Primary Dx); Rash; Metabolic dysfunction-associated steatotic liver disease (MASLD); AARON (obstructive sleep apnea); Alcohol abuse; Dietary counseling; Exercise counseling; Elevated LFTs 02/10/[address] [address] Vickie Lomax RN Referral 02/10/[address] [phone] Ankur Nicole ANP Appointment Request 02/10/2025 Travel 02/09/2025 Telephone [facility] [address] [place] [address] Ankur Nicole ANP Chart Prep 01/13/[address] [address] Milena Cintron RN 01/03/[address] [phone] Ankur Nicole ANP Essential hypertension; Hyperlipidemia associated with type 2 diabetes mellitus (CMS/HCC); Alcohol consumption binge drinking 01/02/2025 Refill [facility] [address] [place] [phone] Ankur Nicole ANP Hyperlipidemia associated with type 2 diabetes mellitus (CMS/HCC); Alcohol consumption binge drinking; Essential hypertension 12/21/2024 Telephone [facility] [address] [place] [address] Ankur Nicole ANP Prior Authorization 12/16/2024 Results Follow-Up [address] [address] Ankur Nicole ANP POCT Glucose, POCT HGB A1C, Hepatic Function Panel, Lipid Panel, Standard 12/16/2024 Travel from Last 3 Months Immunizations Immunization Administration Dates Next Due Hep B, adult 08/12/2024,07/15/2024 Influenza injectable quadriv alent preservative free 06/08/2019 Influenza, seasonal, injecta ble, preservative free 07/15/2024 Pfizer Covid-19 Vaccine 12+ 07/15/2024,,10/29/2020 Pneumococcal Conjugate PCV 20 07/15/2024 Tdap 05/31/2021 Social History Tobacco Use Types Packs/Day Years Used Date Smoking Tobacco: Former Cigarettes Q uit: 2022 Smokeless Tobacco: Never Alcohol Use Standard Drinks/Week Comments Not Currently 0 (1 standard drink = 0.6 oz pur e alcohol) Depression Answer Date Recorded Patient Health Questionnaire-9 Score 0 11/04/2024 Patient Health Questionnaire-9 Score 0 11/04/2024 Last PHQ-9: Questionnaire Data Not on file 0 11/04/2024 Housing Stability Answer Date Recorded What is your housing situation today? I have franko murdock 10/28/[address] you li ve. Do you have problems with any of the following? None of the above 10/28/2024 Food Insecurity Answer Date Recorded Within the past 12 months, y ou worried that your food would run out before you got money to buy more: Never True 10/28/2024 Within the past 12 months,th e food you bought just didn't last and you didn't have enough money to get more: Never True 07/2024 Transportation Answer Date Recorded In the past 12 months, has l ack of transportation kept you from medical appts, meetings, work or from getting things needed for daily living? No 10/28/2024 Utilities Answer Date Recorded In the past 12 months, has t he electric, gas, oil or water company threatened to shut off services in your home? No 10/28/2024 Depression Answer Date Recorded Patient Health Questionnaire-2 Score 0 11/04/2024 Internet Access Answer Date Recorded Internet Access Q1 Yes 10/28/2024 Internet Access Q2 Not on file 10/28/2024 Sex and Gender Information Value Date Recorded Sex Assigned at Male 04/28/2022 10:14 AM EDT Legal Sex Male 10:14 AM EDT Gender Identity Male 04/28/2022 10:14 AM EDT Sexual Orientation Straight 04/28/2022 10 :14 AM EDT Last Filed Vital Signs Vital Sign Reading Time Taken Comments Blood Pressure 124/78 02/10/2025 11:20 AM EDT Pulse 98 02/10/2025 11:20 AM EDT Temperature 36.6 C (97.9 F) 02/25/2024 9:56 AM EDT Respiratory Rate 16 02/10/2025 11:20 AM EDT Oxygen Saturation 99% 02/25/2024 9:56 AM EDT Inhaled Oxygen Concentration - - Weight 140 kg (309 lb) 02/10/2025 11:20 AM EDT Height 180.3 cm (5' 11 ) 02/10/2025 11:20 AM EDT Body Mass Index 43.1 02/10/2025 11:20 AM EDT Plan of Treatment Upcoming Encounters Date Type Department Care Team (Late st Contact Info) Description 03/31/2025 3:00 PM EDT Telemedicine [facility] [address] [place] [address] Caio Briceño, PharmD [address] [place] [address] Health Maintenance Due Date Last Done Comments Eye Exam 1996 Family Planning (PISQ) 2001 HPV Vaccines (1 - Male 3-dose series) 2001 Hepatitis A Vaccines (1 of 2 - Risk 2-dose series) 2005 Diabetes: Urine Protein Screening 12/28/2024 12/29/2023, 03/21/2021, 03/12/2020 Hepatitis B Vaccines (3 of 3 - 19+ 3-dose series) 01/12/2025 08/12/2024, 07/15/2024 Influenza Vaccine (#1) 2025 07/15/2024, 2018 Diabetes: Hemoglobin A1C 05/13/2025 025, 11/18/2024, 11/04/2024, Additional history exists SDOH Screening 10/28/2025 10/28/2024 Alcohol/Substance Use Screening 11/04/2025 11/04/2024 Depression Screening 11/04/2025 11/04/2024, 11/05/19 25 Diabetes: Foot Exam 11/04/2025 11/04/2024, 11/04/2024, 11/04/2024 Disability Screening 11/04/2025 11/04/2024 Lipid Panel 11/18/2025 11/18/2024, 10/27, 02/25/2024, Additional history exists Tobacco Screening 02/10/2026 02/10/2025 DTaP/Tdap/Td Vaccines (2 - Td or Tdap) 05/31/2031 05/31/2021 Zoster Vaccines (1 of 2) 2036 RSV Patients and Patients Aged 60 years or older (1 - 1-dose 75+ series) 2061 HIV Screening Completed 03/21/2021 Hepatitis C Screening Completed 03/21/2021 COVID-19 Vaccine Completed 07/15/2024, , 11/19/2020, Additional history exists Pneumococcal Vaccine: Pediatrics (0 to 5 Years) and At-Risk Patients (6 to 49) Years Completed 07/15/2024 HIB Vaccines Aged Out No longer eligi ble based on patient's age to complete this topic IPV Vaccines Aged Out No longer eligi ble based on patient's age to complete this topic Meningococcal B Vaccine Aged Out No l onger eligible based on patient's age to complete this topic Meningococcal Vaccine Aged Out No camelia daniel eligible based on patient's age to complete this topic RSV under 20 months Aged Out No longe r eligible based on patient's age to complete this topic Rotavirus Vaccines Aged Out No longer eligible based on patient's age to complete this topic Goals Goal Patient Goal Type Associated Problems Recent Progress Patient-Stated? Author Blood Pressure < 140/90 Blood Pressure 124/78(2024 11:20 AM EDT) No Caio Briceño PharmD Hemoglobin A1c < 7 Result Component 8.4( 11:24 AM EDT) No Caio Briceño PharmD Procedures Procedure Name Priority Date/Time Associated Diagnosis Comments POCT GLYCATED HEMOGLOBIN, TOTAL Routine 02/10/2025 11:24 AM EDT Type 2 diabetes mellitus with hyperlipidemia (CMS/HCC) (CMS/HCC) POCT GLUCOSE Routine 02/10/2025 11:22 AM EDT Type 2 diabetes mellitus with hyperlipidemia (CMS/HCC) (CMS/HCC) US ABDOMEN COMPLETE Routine 12/24/2024 9 :09 AM EDT Transaminitis LIPID PANEL WITH REFLEX TO DIRECT LDL Routine 11/18/2024 9:40 AM EDT ALBUMIN, RANDOM URINE W/CREATININE Routine 12/29/2023 9:12 AM EDT Type 2 diabetes mellitus with hyperlipidemia (CMS/HCC) (CMS/HCC) ZZZ HISTORICAL HEPATITIS C AB W/REFL TO HCV RNA, QN, PCR Routine 03/21/2021 9:44 AM EDT HIV 1/2 ANTIGEN/ANTIBODY, FOURTH GENERATION W/RFL Routine 03/21/2021 9:44 AM EDT from Last 3 Months or Most Recently Relevant to Health Maintenance Results * (ABNORMAL) POCT HGB A1C (02/10/2025 11:24 AM EDT) Hemoglobin A1C 8.4(A) 4.0 - 5.7 % QC Media Lot # [id number] Lot# Expiration Date [id number] Blood 02/10/2025 11:2 4 AM EDT us Ankur Nicole ANP POINT OF CARE TEST ENTER/EDIT OR DERABLES Final Result * (ABNORMAL) POCT Glucose (02/10/2025 11:22 AM EDT) Glucose Blood, POC 318(A) 60 - 200 mg/dL QC Media Lot # [id number] Lot# Expiration Date [id number] Blood Capillary blood specimen / Unknown 02/10/2025 11:22 AM EDT us Ankur Nicole ANP POINT OF CARE TEST ENTER/EDIT OR DERABLES Final Result * US Abdomen Complete (12/24/2024 9:09 AM EDT) Anatomical Region Laterality Modality Abdomen Ultrasound 12/24/2024 9:09 AM EDT Narrative 12/24/2024 9:11 AM EDT [place] [id number] Ultrasound Report Signed Patient: Pavel Hollis MR#: [id number] [birth year] : 1985 Acct:[id number] Age/Sex: 39 / M ADM Date: 12/23/24 Loc: HO.US Attending Dr: Ankur Nicole NP Ordering Physician: ANKUR NICOLE NP Date of Service: 12/23/24 Procedure(s): US abdomen complete Accession Number(s): [id number] cc: ANKUR NICOLE NP CLINICAL HISTORY: elevated liver enzymes US abdomen complete Comparison: None provided Findings: Pancreas is predominantly obscured. The aorta and inferior vena cava are normal caliber. Increased hepatic parenchymal echotexture. The liver is enlarged measuring 21.1 cm in greatest dimension. There is no intrahepatic bile duct dilatation. The common duct is for mm in diameter. The gallbladder is normal. There is no sonographic Duong sign. The main portal vein is antegrade. The right kidney is 12.3 cm in length. The left kidney is 11.8 cm in length. The spleen is normal. No ascites. IMPRESSION: 1. Hepatic steatosis and hepatomegaly. Normal splenic size. This document has been electronically signed by: Stephany Dill MD on 12/24/2024 09:09:18 Dictated By: Stephany Dill MD Signed By: <Electronically signed by Stephany Dill MD in OV> 12/24/24909 DD/ 8 TD/TT: 12/24/24908 Physical Medicine Physician: Procedure Note Donotuseinterpreter, Image - 12/24/2024 [place] [id number] Ultrasound Report Signed Patient: Pavel HollisMR#: [id number] 13 : 1985Acct:[id number] Age/Sex: 39 / MADM Date: 12/23/24 Loc: HO.US Attending Dr: Ankur Nicole NP Ordering Physician: ANKUR NICOLE NP Date of Service: 12/23/24 Procedure(s): US abdomen complete Accession Number(s): [id number] cc: ANKUR NICOLE NP CLINICAL HISTORY: elevated liver enzymes US abdomen complete Comparison: None provided Findings: Pancreas is predominantly obscured. The aorta and inferior vena cava are normal caliber. Increased hepatic parenchymal echotexture. The liver is enlarged measuring 21.1 cm in greatest dimension. There is no intrahepatic bile duct dilatation. The common duct is for mm in diameter. The gallbladder is normal. There is no sonographic Duong sign. The main portal vein is antegrade. The right kidney is 12.3 cm in length. The left kidney is 11.8 cm in length. The spleen is normal. No ascites. IMPRESSION: 1. Hepatic steatosis and hepatomegaly. Normal splenic size. This document has been electronically signed by: Stephany Dill MD on 12/24/2024 09:09:18 Dictated By: Stephany Dill MD Signed By: <Electronically signed by Stephany Dill MD in OV> 12/24/24909 DD/ 8 TD/TT: 12/24/24908 Physical Medicine Physician: Ankur RUSS IMG US PROCEDURES Edited Result - Final * (ABNORMAL) Lipid Panel with Reflex to Direct LDL (11/18/2024 9:40 AM EDT) Triglycerides 288(H) <150 mg/dL [facility] Comment:Desirable Triglyceri de: less than 150 mg/dLBorderline High Triglyceride 150-199 mg/dLHigh Triglyceride: 200-499 mg/dLVery High Triglyceride: greater than or equal to 5OO mg/dL Cholesterol 103 <200 mg/dL [facility] Comment:Desirable Cholestero l: less than 200 mg/dLBorderline High Cholesterol: 200-239 mg/dLHigh Cholesterol: greater than 239 mg/dL LDL Cholesterol Calculated 20 <100 mg/dL [facility] Comment:Desirable LDL: less than 100 mg/dLNear Optimal/Above Optimal LDL: 110- 129 mg/dLBorderline High LDL: 130-159 mg/dLHigh LDL: 160-189 mg/dLVery High LDL: greater than or equal to 190 mg/dL HDL Cholesterol 26(L) >40 mg/dL [facility] Comment:Desirable HDL: great er than 40 mg/dL Note: This HDL assay may give artificially low results in patients with liver disease. 11/18/2024 9:40 AM EDT 11/18/2024 9:40 AM EDT us Generic External Data Provider LAB BLOOD ORDERAB LES Final Result [facility] [address] [place], [place] [phone] * Albumin, Random Urine W/Creatinine (12/29/2023 9:12 AM EDT) Creatinine, Urine 448.59 mg/dL [facility] Microalbumin Urine 91.0 mg/L [facility] Microalbum Creatinine Ratio Ur 20.2 <30 ug/mg cr [facility] Comment:Albumin/Creatinine R atio Reference Ranges: Normal: < 30 ug/mg creatinine Microalbuminuria: 30 - 300 ug/mg creatinineClinical Albuminuria: > 300 ug/mg creatinine Urine 12/29/2023 9:12 AM EDT 12/29/2023 10:43 AM EDT us Ankur Nicole ANP LAB URINE ORDERABLES Final Resul t Performing Organization Address [facility] Co de Phone Number [facility] [address] [place] [address] [phone] * HEPATITIS C AB W/REFL TO HCV RNA, QN, PCR (03/21/2021 9:44 AM EDT) HEPATITIS C ANTIBODY NON-REACT DAWN NON-REACT DAWN [facility] INDEX 0.08 <1.00 [facility] Comment: HCV antibody was non-reactive. There is no laboratory evidence of HCV infection. In most cases, no further action is required. However, if recent HCV exposure is suspected, a test for HCV RNA (test code 81211) is suggested. For additional information please refer to http://education.[employer]/faq/JER71y2 (This link is being provided for informational/ educational purposes only.) 03/21/2021 9:44 AM EDT us Ankur Nicole ANP HISTORICAL/NON ORDERABLE LABS Fi nal Result Performing Organization Address City/[facility] Co de Phone Number [facility]ly [facility] [address] * HIV 1/2 ANTIGEN/ANTIBODY,FOURTH GENERATION W/RFL (03/21/2021 9:44 AM EDT) HIV-1/2 ANTIGEN AND ANTIBODIES, 4TH GENERATION W/ REFLEX NON-REACT DAWN [facility] Comment: HIV-1 antigen and HIV-1/HIV-2 antibodies were not detected. There is no laboratory evidence of HIV infection. PLEASE NOTE: This information has been disclosed to you from records whose confidentiality may be protected by state law. If your state requires such protection, then the state law prohibits you from making any further disclosure of the information without the specific written consent of the person to whom it pertains, or as otherwise permitted by law. A general authorization for the release of medical or other information is NOT sufficient for this purpose. For additional information please refer to http://education.[employer]/faq/EZU076 (This link is being provided for informational/ educational purposes only.) The performance of this assay has not been clinically validated in patients less than 2 years old. 03/21/2021 9:44 AM EDT us [facility] LAB BLOOD ORDERABLES Final Resul t [facility] Anywhere [address] from Last 3 Months or Most Recently Relevant to Health Maintenance [facility] Care Teams Continuous Still Operator Relationship Specialty Start Date End Date Ankur Nicole ANP [address] [place] [address] PCP - General Family Medicine 02/11/21 George Hays FNP [address] [place] [address] Nurse Practitioner Family Medicine 05/25/23 Caio Briceño, PharmD [address] [place] [address] Pharmacist Internal Medicine 02/01/24
--- OUTSIDE RECORDS SUMMARY | 2025-03-17 14:01 | XMS_ITS | Clinical Summary ---
Author Organization Cristy Ens[facility] ity Address [address] [place] [address] Care Team Providers Care Application Penetration Tester Name Role Phone Unavailable Primary Care Provider [...] of 3 - 19+ 3-dose series) 2005 Depression Screening 06/29/2024 COVID-19 Vaccine (1 - 2023-2 5 season) 2025 Influenza Vaccine (#1) 2025 RSV Immunization Adult Patie nts (1 - 1-dose 75+ series) 2061 HIB Vaccines Aged Out No longer eligi [...] 5 Years) and At-Risk Patients (6 to 49 Years) Aged Out No longer eligible b ased on patient's age to complete this topic RSV Immunization Patients Un irving 20 months Aged Out No longer eligible b ased on patient's age to complete this topic Varicella Vaccines Aged Out No longer eligible based on patient's age to complete this topic
--- OUTSIDE RECORDS SUMMARY | 2025-03-17 14:01 | XMS_ITS | Encounter Summary ---
Author Organization [employer] Address [address] [facility] 7t [place] [address] Care Team Providers Care Financial Systems Director Name Role Phone Gloria Cruz Primary Care Provider [phone] George Hays Unavailable Unavailable Caio Briceño PharmD Unavailable [phone] Reason for Visit * Reason Comments Med Refill Encounter Details Date Type Department Care Team ([facility] st Contact Info) Description 10/14/2023 Refill [facility] [address] [place], [place] [phone] Gloria Cruz ANP 230 [place] [address] Social History Tobacco Use Types Packs/Day Years [...] Info) Description 03/31/2025 3:00 PM EDT Telemedicine [facility] [address] [place] [address] Caio Briceño, PharmD [address] [place] [address] documented as of this encounter Visit Diagnoses Not on filedocumented in this encounter Additional Health Concerns Assessment Noted Time PHQ-9 Depression Total Score: 0 09/29/19 24 9:20 AM EDT documented as of this encounter Care Teams Financial Systems Director Relationship Specialty Start Date End Date Gloria Cruz ANP [address] [place] [phone] PCP - General Family Medicine 02/11/21 George Hays FNP [address] [place] [address] Nurse Practitioner Family Medicine 05/25/23 Caio Briceño, PharmD [address] [place] [address] Pharmacist Internal Medicine 02/01/24 documented as of this encounter
--- OUTSIDE RECORDS SUMMARY | 2025-03-17 14:01 | XMS_ITS | Encounter Summary ---
Author Organization [employer] Address [address] [facility] 7t [place] [address] Care Team Providers Care Web Operations Lead Name Role Phone lGoria Cruz Primary Care Provider [phone] George Hays EVAPORATOR OPERATOR MOLASSES Unavailable Unavailable Caio Briceño PharmD Unavailable [phone] Reason for Visit * Reason Onset Date Comments Nurse Triage 08/18/2023 Encounter Details Date Type Department Care Team (Late st Contact Info) Description 08/18/[address] [facility] [address] [place] [address] Gloria Cruz ANP [address] [place] [address] Nurse Triage Social History Tobacco Use Types [...] were negative * Telephone Encounter - Marli Baltazar - 08/18/2023 12:48 PM EST Symptom: Penis Symptoms Outcome: Talk to a nurse or provider within 15 minutes Reason: Severe pain now The caller accepted this outcome Please contact pt spouse at [phone] documented in this encounter Plan of Treatment Upcoming Encounters Date Type Department Care Team (Late st Contact Info) Description 03/31/2025 3:[address] [facility] [address] [place] [address] Caio Briceño, Sandy [address] [place] [address] documented as of this encounter Visit Diagnoses Not on filedocumented in this encounter Additional Health Concerns Assessment Noted Time PHQ-9 Depression Total Score: 0 08/03/19 2:06 PM EST documented as of this encounter Care Teams Web Operations Lead Relationship Specialty Start Date End Date Gloria Cruz ANP [address] [place] [address] PCP - General Family Medicine 02/11/21 George Hays FNP [address] [place] [address] Nurse Practitioner Family Medicine 05/25/23 Caio Briceño, PharmD [address] [place] [address] Pharmacist Internal Medicine 02/01/24 documented as of this encounter
--- OUTSIDE RECORDS SUMMARY | 2025-03-17 14:01 | XMS_ITS | Encounter Summary ---
Author Organization [employer] Address [address] [facility] 7t [place] [address] Care Team Providers Care Die Setter Name Role Phone Gloria Cruz Primary Care Provider [phone] George Hays CARDIOVASCULAR RN Unavailable Unavailable Caio Briceño PharmD Unavailable [phone] Reason for Visit * Reason Onset Date Comments triage 10/14/2022 Encounter Details Date Type Department Care Team (Late st Contact Info) Description 10/14/2022 Telephone [facility] [address] [place] [address] Gloria Cruz ANP [address] [place] [address] triage Social History Tobacco Use Types Packs/Day Years Used Date Smoking Tobacco: Every Day Cigarettes Smokeless Tobacco: Never Alcohol Use Standard Drinks/Week Comments Not Currently 0 (1 standard drink = 0.6 oz pur e alcohol) Sex and Gender Information Value Date Recorded Sex Assigned at Male 04/28/2022 10:14 AM EDT Legal Sex Male 10:14 AM EDT Gender Identity Male 04/28/2022 10:14 AM EDT Sexual Orientation Straight 04/28/2022 10 :14 AM EDT COVID-19 Exposure Response Date Recorded In the last 10 days, have yo u been in contact with someone who was confirmed or suspected to have Coronavirus/COVID-19? No / Unsure 10/17/2022 8:47 AM EDT documented as of this encounter Miscellaneous Notes * Telephone Encounter - Jaylene Ireland RN - 10/14/2022 1:04 PM EDT Call to Feliciano Hollis, reports ahving elevated BP reading today 158/104 HR 80. Per pt this reading was a few minutes ago. Per pt having taken BP meds already today. Pt asked to recheck BP. During call BP reading of 148/89 HR 79. Pt states was having heading earlier but after some rest and fluids has resolved. Pt advised of disposition, already has BP check with team nurse on 10/17 at 9am. Will send to note to PCP to reivew and further advised team nurses of POC. Reviewed home care advise and reasons to call back. Protocol Used: Blood Pressure - High (Adult) Protocol-Based Disposition: See in Office or Video Visit within 3 Days Video visit offer not recorded Positive Triage Question: * Systolic BP >= 160 OR Diastolic >= 100 * All higher-acuity triage questions were negative Care Advice Discussed: * High Blood Pressure * How to Check Your Blood Pressure? * Reasons To Call Back - Headache, blurred vision, difficulty talking, or difficulty walking occurs - Chest pain or difficulty breathing occurs - You become worse * Telephone Encounter - Enio Braxton - 10/14/2022 12:49 PM EDT Symptom: High Blood Pressure - Caller Reports Outcome: Schedule an urgent appointment (within 1 hour) or talk to a nurse or provider soon Reason: Getting worse The caller accepted this outcome Please contact spouse at [phone] documented in this encounter Plan of Treatment Upcoming Encounters Date Type Department Care Team (Late st Contact Info) Description 03/31/2025 3:00 PM EDT Telemedicine [facility] [address] [place] [address] Caio Briceño, BaljinderD [address] [place] [address] documented as of this encounter Visit Diagnoses Not on filedocumented in this encounter Care Teams Die Setter Relationship Specialty Start Date End Date Gloria Cruz ANP [address] [place] [address] PCP - General Family Medicine 02/11/21 George Hays FNP [address] [place] [address] Nurse Practitioner Family Medicine 05/25/23 Caio Briceño, PharmD [address] [place] [address] Pharmacist Internal Medicine 02/01/24 documented as of this encounter
--- OUTSIDE RECORDS SUMMARY | 2025-03-17 14:01 | XMS_ITS | Encounter Summary ---
Author Organization [employer] Address 75 [facility] 7t [place] [address] Care Team Providers Care Cold Mill Operator Name Role Phone Gloria Cruz Primary Care Provider [phone] George Hays Unavailable Unavailable Caio Briceño PharmD Unavailable [phone] Encounter Details Date Type Department Care Team (Late st Contact Info) Description 09/08/2022 Abstract [facility] [address] [place] [address] Gloria Cruz ANP [address] [place] [address] Social History Tobacco Use Types Packs/Day Years [...] suspected to have Coronavirus/COVID-19? No / Unsure 09/08/2022 10:31 AM EDT documented as of this encounter Plan of Treatment Upcoming Encounters Date Type Department Care Team (Late Contact Info) Description 03/31/2025 3:00 PM EDT Telemedicine [facility] [address] [place] [address] Caio Briceño, PharmD [address] [place] [address] documented as of this encounter Visit Diagnoses Not on filedocumented in this encounter Care Teams Cold Mill Operator Relationship Specialty Start Date End Date lGoria Cruz ANP [address] [place] [address] PCP - General Family Medicine 02/11/21 George Hays FNP [address] [place] [address] Nurse Practitioner Family Medicine 05/25/23 Caio Briceño, BaljinderD [address] [place] [address] Pharmacist Internal Medicine 02/01/24 documented as of this encounter
--- OUTSIDE RECORDS SUMMARY | 2025-03-17 14:01 | XMS_ITS | Encounter Summary ---
Author Organization [employer] Address [address] [place] [address] 7 [place] [address] Care Team Providers Care Insurance Assistant Name Role Phone Gloria Cruz Primary Care Provider [phone] George Hays SECRETARIAL STENOGRAPHER Unavailable Unavailable Caio Briceño PharmD Unavailable [phone] Reason for Visit * Reason Onset Date Comments Med Refill 07/30/2022 Encounter Details Date Type Department Care Team (Late st Contact Info) Description 07/30/2022 Telephone [facility] [address] [place] [address] Gloria Cruz ANP [address] [place] [address] Med Refill Social History Tobacco Use Types Packs/Day Years Used Date Smoking Tobacco: Never Assessed Sex and Gender Information Value Date Recorded Sex Assigned at Male 04/28/2022 10:14 AM EDT Legal Sex Male 10:14 AM EDT Gender Identity Male 04/28/2022 10:14 AM EDT Sexual Orientation Straight 04/28/2022 10 :14 AM EDT documented as of this encounter Miscellaneous Notes * Telephone Encounter - Amanda Collins LPN - 07/30/2022 11:24 AM EST Medication was sent to [facility] on 07/24/22. Qty: 60 with 2 refills. * Telephone Encounter - Concepcion Cronin - 07/30/2022 10:30 AM EST Tc from pt requesting med refill for medication allopurinol (Zyloprim) 100 MG tablet. documented in this encounter Plan of Treatment Upcoming Encounters Date Type Department Care Team (Late st Contact Info) Description 03/31/2025 3:00 PM EDT Telemedicine [facility] [address] [place], [place] [phone] Caio Briceño, PharmD [address] [place], [place] documented as of this encounter Visit Diagnoses Not on filedocumented in this encounter Care Teams Insurance Assistant Relationship Specialty Start Date End Date Gloria Cruz ANP [address] [place] [address] PCP - General Family Medicine 02/11/21 George Hays FNP [address] [place] [address] Nurse Practitioner Family Medicine 05/25/23 Caio Briceño, PharmD [address] [place] [address] Pharmacist Internal Medicine 02/01/24 documented as of this encounter
--- OUTSIDE RECORDS SUMMARY | 2025-03-17 14:01 | XMS_ITS | Encounter Summary ---
Author Organization [employer] Address [address] [facility] 7t [place] [address] Care Team Providers Care Early Childhood Teacher Assistant Name Role Phone Gloria Cruz Primary Care Provider [phone] George Hays COMPUTER PERIPHERAL EQUIPMENT OPERATOR Unavailable Unavailable Caio Briceño PharmD Unavailable [phone] Encounter Details Date Type Department Care Team (Late st Contact Info) Description 01/03/2025 Refill [facility] [address] [place], [place] [phone] Gloria Cruz ANP [address] [place] [address] Essential hypertension; Hyperlipidemia associated with type 2 diabetes mellitus (CMS/HCC); Alcohol consumption binge drinking Social History Tobacco Use Types Packs/Day Years Used Date Smoking Tobacco: Some Days Cigarettes Smokeless Tobacco: Never Alcohol Use Standard [...] encounter Miscellaneous Notes * Telephone Encounter - Augusta Patino MD - 01/03/2025 5:23 PM EDT Sent already documented in this encounter Plan of Treatment Upcoming Encounters Date Type Department Care Team (Late st Contact Info) Description 03/31/2025 3:00 PM EDT Telemedicine [facility] [address] [place] [address] Caio Briceño PharmD [address] [place] [address] documented as of this encounter Goals Goal Patient Goal Type Associated Problems Recent Progress Patient-Stated? Author Blood Pressure < 140/90 Blood Pressure 124/78(2024 11:20 AM EDT) No Caio Briceño PharmD Hemoglobin A1c < 7 Result Component 8.4( 11:24 AM EDT) No Caio Briceño PharmD documented as of this encounter Visit Diagnoses Diagnosis Essential hypertension Unspecified essential hypertension Hyperlipidemia associated with type 2 diabetes mellitus ([facility]/HCC) Alcohol consumption binge drinking documented in this encounter Additional Health Concerns Assessment Noted Time PHQ-9 Depression Total Score: 0 11/05/19 25 11:12 AM EDT documented as of this encounter Care Teams Early Childhood Teacher Assistant Relationship Specialty Start Date End Date Gloria Cruz ANP [address] [place] [address] PCP - General Family Medicine 02/11/21 George Hays FNP [address] [place] [address] Nurse Practitioner Family Medicine 05/25/23 Caio Briceño, Sandy [address] [place] [address] Pharmacist Internal Medicine 02/01/24 documented as of this encounter
--- OUTSIDE RECORDS SUMMARY | 2025-03-17 14:01 | XMS_ITS | Encounter Summary ---
Author Organization [employer] Address [address] [place] [address] 7 [place] [address] Care Team Providers Care Case Maker Name Role Phone Gloria Cruz Primary Care Provider [phone] George Hays SUPERVISOR NETWORK CONTROL OPERATORS Unavailable Unavailable Caio Briceño PharmD Unavailable [phone] Encounter Details Date Type Department Care Team (Late st Contact Info) Description 08/20/2022 Orders Only [facility] [address] [place] [address] Amanda Collins LPN Social History Tobacco Use Types Packs/Day [...] Info) Description 03/31/2025 3:00 PM EDT Telemedicine [facility] [address] [place] [address] Caio Briceño, PharmD [address] [place] [address] documented as of this encounter Visit Diagnoses Not on filedocumented in this encounter Care Teams Case Maker Relationship Specialty Start Date End Date Gloria Cruz ANP [address] [place] [address] PCP - General Family Medicine 02/11/21 George Hays FNP [address] [place] [address] Nurse Practitioner Family Medicine 05/25/23 Caio Briceño, BaljinderD [address] [place] [address] Pharmacist Internal Medicine 02/01/24 documented as of this encounter
--- OUTSIDE RECORDS SUMMARY | 2025-03-17 14:01 | XMS_ITS | Encounter Summary ---
Author Organization [employer] Address [address] [facility] 7t [place] [address] Care Team Providers Care Flash Developer Name Role Phone Gloria Cruz PETRONA Primary Care Provider [phone] George Hays ELECTRICIAN'S HELPER Unavailable Unavailable Caio Briceño PharmD Unavailable [phone] Encounter Details Date Type Department Care Team ([facility] Contact Info) Description 12/31/2022 Orders Only [facility] [address] [place] [address] Amanda Collins LPN Social History Tobacco Use Types Packs/Day Years Used Date Smoking Tobacco: Every Day Cigarettes Smokeless Tobacco: Never Alcohol Use Standard Drinks/Week Comments Not Currently 0 (1 standard drink = 0.6 oz pur e alcohol) PHQ-2 Answer Date Recorded Patient Health Questionnaire-2 Score 0 11/11/2022 Sex and Gender Information Value Date Recorded [...] suspected to have Coronavirus/COVID-19? No / Unsure 12/12/2022 10:47 AM EDT documented as of this encounter Plan of Treatment Upcoming Encounters Date Type Department Care Team ([facility] Contact Info) Description 03/31/2025 3:00 PM EDT Telemedicine [facility] [address] [place] [address] Caio Briceño, PharmD [address] [place] [address] documented as of this encounter Visit Diagnoses Not on filedocumented in this encounter Care Teams Flash Developer Relationship Specialty Start Date End Date Gloria Cruz ANP [address] [place] [address] PCP - General Family Medicine 02/11/21 George Hays FNP [address] [place] [address] Nurse Practitioner Family Medicine 05/25/23 Caio Briceño, Sandy [address] [place] [address] Pharmacist Internal Medicine 02/01/24 documented as of this encounter
--- OUTSIDE RECORDS SUMMARY | 2025-03-17 14:01 | XMS_ITS | Encounter Summary ---
Author Organization [employer] Address [address] [place] [address] 7t [place] [address] Care Team Providers Care Manager Support Name Role Phone Gloria Cruz Primary Care Provider George Hays Unavailable Unavailable Caio Briceño PharmD Unavailable [phone] Reason for Visit * Reason Comments Med Refill Encounter Details Date Type Department Care Team ([facility] Contact Info) Description 10/24/2022 Refill [facility] MED[facility]INE [address] [place] [address] Gloria Cruz ANP [address] [place] [address] Social History Tobacco Use Types Packs/Day Years [...] Upcoming Encounters Date Type Department Care Team ([facility] Contact Info) Description 03/31/2025 3:00 PM EDT Telemedicine [facility] [address] [place] [address] Caio Briceño, PharmD [address] [place] [address] documented as of this encounter Visit Diagnoses Not on filedocumented in this encounter Care Teams Manager Support Relationship Specialty Start Date End Date Gloria Cruz ANP [address] [place] [address] PCP - General Family Medicine 02/11/21 George Hays FNP [address] [place] [address] Nurse Practitioner Family Medicine 05/25/23 Caio Briceño, PharmD [address] [place] [address] Pharmacist Internal Medicine 02/01/24 documented as of this encounter
--- OUTSIDE RECORDS SUMMARY | 2025-03-17 14:01 | XMS_ITS | Encounter Summary ---
Author Organization [employer] Address [address] [place] [address] 7 [place] [address] Care Team Providers Care Conventional Mortgage Underwriter Name Role Phone Gloria Cruz Primary Care Provider [phone] George Hays MITOCHONDRIAL DISORDERS COUNSELOR Unavailable Unavailable Caio Briceño PharmD Unavailable [phone] Encounter Details Date Type Department Care Team (Late st Contact Info) Description 07/22/2022 Orders Only [facility] MEDICINE [address] [place] [address] Silvia Keyes LPN Social History Tobacco Use [...] Info) Description 03/31/2025 3:00 PM EDT Telemedicine [facility] MED[facility]INE [address] [place] [address] Caio Briceño, PharmD [address] [place] [address] documented as of this encounter Visit Diagnoses Not on filedocumented in this encounter Care Teams Conventional Mortgage Underwriter Relationship Specialty Start Date End Date lGoria Cruz ANP [address] [place] [address] PCP - General Family Medicine 02/11/21 George Hays FNP [address] [place] [address] Nurse Practitioner Family Medicine 05/25/23 Caio Briceño, BaljinderD [address] [place] [address] Pharmacist Internal Medicine 02/01/24 documented as of this encounter
== END 2025-03-17 14:39 | disposition home or self-care (01) ==
LOC: HO.HGI 13:53
PROVIDERS: PCP Nurse Practitioner Primary Care; Visit Provider Nurse Practitioner
DX: R74.01 Elevation of levels of liver transaminase levels (principal); E66.01 Morbid (severe) obesity due to excess calories; Z68.41 Body mass index [BMI] 40.0-44.9, adult; E11.9 Type 2 diabetes mellitus without complications
CPT/HCPCS: 99203

== ENCOUNTER → 2025-03-17 13:53 | Outpatient (BNVA) | payer MEDICAID, SELFPAY | PROVIDERS: PCP Nurse Practitioner Primary Care; Visit Provider Nurse Practitioner | DX: R74.01 Elevation of levels of liver transaminase levels (principal); E11.9 Type 2 diabetes mellitus without complications; E66.01 Morbid (severe) obesity due to excess calories; Z68.41 Body mass index [BMI] 40.0-44.9, adult | CPT/HCPCS: 99212 ==

== ENCOUNTER 2025-05-05 08:29 | Outpatient (AMB) | payer MEDICAID, SELFPAY ==
[2025-05-05 08:30] VITALS: BP 112/78; PULSE 103; O2SAT 97; BMI 43.0
--- NOTE | 2025-05-05 08:30 | MHC.OFFVIS ---
Vital Signs 05/05/25 08:30 Height 5 ft 11 in Weight 308 lb 6 oz BMI 43.0 BP 112/78 Blood Pressure Location Rt brachial Position Sitting Pulse 103 H Pulse Source Pulse Oximeter Pulse Oximetry (%) 97 Oxygen Delivery Method Room Air Intake Visit Reasons: 6mnth follow up-Conf Intake Note: Patient presents follow up AARON. Compliance in chart(71/90days, >=4hrs-42%, Average Usage-3hrs 26min, Med Pressure-9.2, Med Leaks-9.1, AHI-3.1) Accompanied by: Self / Same As Patient Allergies No Known Allergies Allergy (Verified 05/05/25 08:32) HPI Comments Details: 39 y/o male patient presents for a follow up of sleep apnea he is on cpap therapy. His Peggy is here today and helps with history. HST c/w moderate degree of AARON AHI was 20/hr and nocturnal hypoxemia, his )2 desaturation was averaging between 92% and lowest saturation of 68% with below averaging to 88% for 20min. AARON Compliance Report Jan 2025 to Mar 2025 reviewed with pt. Total avg use is 71/90 days and >4 hours is 42% Avg use is 3 hours and 26min Med press 9.2cmH20 and Med Leaks 9.1 and AHI is 3.1/hr He washes his mask, rinses hoses, changes filters, and fills reservoir with water. His sleep has improved with CPAP machine and feels as if he is more energetic. He notices the leaks are bothersome and loud would like to switch to a better mask. He still has night terrors daily, though less kicking in his sleep, and less frequency of events. He denies parasomnias, or night binge eating disorders. He denies morning headaches. He has tingling bilaterally in hands with tingling, numbness and weakness, he drops things from his hands. He has spasms in both calves with radiating pain which can wake him up from sleep. His blood sugars have normalized, he is being closely managed with sensors to avoid hypoglycemia. His mood is still irritable, and continues to see his therapist Donald Durbin for ongoing therapy. He takes aripiprazole and prazosin for mood and sleep interruptions due to night terrors. Memory is poor will forget many things and has brain fog. His diet is poor, BMI is 43, we discussed decreasing alcohol use, frequency of intake is 15 beers and 10shots per one sitting, reports he is able to curb his appetite for alcohol and declines acamprost meds. He is walking daily for 30 min now, and is mindful to stay hydrated, he requests a referral to weight management, though does not want to have a surgical procedure. He continues to smoke MJ and use edibles as needed. [facility] Medical History Obesity Shortness of breath Diabetes HTN (hypertension) Surgical History Hx of appendectomy Family History Father No problems noted. Mother Sleep apnea History of thyroid disease Social History Alcohol intake: never Patient Tobacco Use Status: Current everyday Tobacco user Cigarette Packs Per Day: 0.5 Review of Systems ENT Reports Normal hearing present Neuro Reports Normal hearing present Physical Exam Vital Signs: Last Vital Signs Pulse 103 H 05/05/25 08:30 BP 112/78 05/05/25 08:30 Pulse Ox 97 05/05/25 08:30 Oxygen Delivery Method Room Air 05/05/25 08:30 BMI result Body Mass Index 43.0 Const General: cooperative Nutritional Appearance: obese Orientation/consciousness: patient oriented x3 Eyes Pupils: Equal, round and reactive pupils present Neck Neck: Yes full ROM and Yes supple Resp Effort & Inspection: normal respiratory effort and able to speak in complete sentences Neuro Other: obese BMI is 43 /low back pain antalgic gait General: patient oriented x3 and moves all extremities Cranial nerves: Yes Equal, round and reactive pupils present, Yes Bilaterally intact EOM present, Yes Normal facial strength present, Yes Midline tongue present, Yes Symmetric palate elevation present, Yes Normal hearing present, Yes Ability to bilaterally rotate head present and Yes Ability to bilaterally elevate shoulders present Cognition (Neuro): normal cognition Gait exam (Neuro): Antalgic gait present Motor exam (neuro): 5/5 motor strength present throughout and Normal motor muscle tone present throughout Psych Appearance: well kempt Speech and movement: Slowed movement present (Neuro) Thought process: Normal thought process present Results Reviewed Results Reviewed: IMPRESSION: 1. Hepatic steatosis and hepatomegaly. Normal splenic size. Assessment & Plan Assessment & Plan (1) Obstructive sleep apnea: Comment: moderately to severe AARON. The total AHI was 20/hr and snoring for 27% of the sleep time. Mild nocturnal hypoxemia with average O2 sat 92% and the lowest O2 sat 68% and O2 sat below 88% for 20 min. Code(s): G47.33 - Obstructive sleep apnea (adult) (pediatric) Category: Medical (2) Night terrors: Code(s): F51.4 - Sleep terrors [night terrors] Category: Medical (3) RLS (restless legs syndrome): Code(s): G25.81 - Restless legs syndrome Category: Medical (4) Obesity: Code(s): E66.9 - Obesity, unspecified Category: Medical Qualifiers: Body mass index: BMI 40.0-44.9 Obesity classification: adult class 3 (BMI >= 40) Obesity type: due to excess calories Serious obesity comorbidity presence: with serious comorbidity Qualified Code(s): E66.01 - Morbid (severe) obesity due to excess calories; Z68.41 - Body mass index [BMI] 40.0-44.9, adult (5) Obesity: Code(s): E66.9 - Obesity, unspecified Category: Medical Qualifiers: Body mass index: BMI 40.0-44.9 Obesity classification: adult class 3 (BMI >= 40) Obesity type: due to excess calories Serious obesity comorbidity presence: with serious comorbidity Qualified Code(s): E66.01 - Morbid (severe) obesity due to excess calories; Z68.41 - Body mass index [BMI] 40.0-44.9, adult (6) Cramps of lower extremity: Code(s): R25.2 - Cramp and spasm Category: Medical Plan AARON continue to CPAP as patient experiences good clinical effects. Stressed compliance, use > than 4 hrs nightly. Obesity Wt management referral, continue [place] subq weekly, walking daily 30 min, referral to [place]. Night terrors continue Prazosin and working with therapist 2-3 x a month as needed with [facility]. Supply order was faxed to [facility] for full face mask, need chin straps, and hoses. EMG - NCS- Labs reviewed with pt. 3 month f/u Orders: Orders NE electromyogram (EMG) Today R25.2 - Cramp and spasm NE nerve conduction velocity Today R25.2 - Cramp and spasm Referrals Medical Weight Management Referral E66.01 - Morbid (severe) obesity due to excess calories Coding Level of Care Code Est Pt Level 4 (46065) Diagnoses Obstructive sleep apnea G47.33 Night terrors F51.4 RLS (restless legs syndrome) G25.81 Class 3 severe obesity due to excess calories with serious comorbidity and body mass index (BMI) of 40.0 to 44.9 in adult E66.01; Z68.41 Body mass index: BMI 40.0-44.9 Obesity classification: adult class 3 (BMI >= 40) Obesity type: due to excess calories Serious obesity comorbidity presence: with serious comorbidity Cramps of lower extremity R25.2
--- OUTSIDE RECORDS SUMMARY | 2025-05-05 09:02 | XMS_ITS | Encounter Summary ---
Author Organization [employer] Address [address] [facility] 7t [place] [address] Care Team Providers Care Corporate Secretary Name Role Phone Gloria Cruz Primary Care Provider [phone] George Hays CONSULTING INTERN Unavailable Unavailable Caio Briceño PharmD Unavailable Encounter Details Date Type Department Care Team (Late st Contact Info) Description 01/03/2025 Refill [facility] MEDICINE [address] [place], [place] [phone] Gloria Cruz ANP [address] [place] [address] Essential hypertension; Hyperlipidemia associated with type 2 [...] Care Team (Late st Contact Info) Description 07/07/2025 9:30 AM EST Office Visit [facility] [address] [place] [address] Malcolm Waters MD [address] [place] [address] documented as of this encounter Goals Goal [...] Hyperlipidemia associated with type 2 diabetes mellitus (HCC) Alcohol consumption binge drinking documented in this encounter Additional Health Concerns Assessment Noted Time PHQ-9 Depression Total Score: 0 11/05/19 25 11:12 AM EDT documented as of this encounter Care Teams Corporate Secretary Relationship Specialty Start Date End Date Gloria Cruz ANP [address] [place] [address] PCP - General Family Medicine 02/11/21 George Hays FNP [address] [place] [address] Nurse Practitioner Family Medicine 05/25/23 Caio Briceño, Sandy [address] [place] [address]67 Pharmacist Internal Medicine 02/01/24 documented as of this encounter
--- OUTSIDE RECORDS SUMMARY | 2025-05-05 09:02 | XMS_ITS | Encounter Summary ---
Author Organization [employer] Address [address] [place] [address] 7 [place] [address] Care Team Providers Care Circle Saw Operator Name Role Phone Gloria Cruz Primary Care Provider [phone] George Hays FILLER SHREDDING MACHINE LOADER Unavailable Unavailable Caio Briceño PharmD Unavailable [phone] Encounter Details Date Type Department Care Team (Late st Contact Info) Description 09/01/2022 Orders Only [facility] MEDICINE [address] [place] [address] Silvia Keyes LPN Social History Tobacco Use [...] Description 07/07/2025 9:30 AM EST Office Visit [facility] MED[facility]INE [address] [place] [address] Malcolm Waters MD [address] [place] [address] documented as of this encounter Visit Diagnoses Not on filedocumented in this encounter Care Teams Circle Saw Operator Relationship Specialty Start Date End Date Gloria Cruz ANP [address] [place] [address] PCP - General Family Medicine 02/11/21 George Hays FNP [address] [place] [address] Nurse Practitioner Family Medicine 05/25/23 Caio Briceño, BaljinderD [address] [place] [address] Pharmacist Internal Medicine 02/01/24 documented as of this encounter
--- OUTSIDE RECORDS SUMMARY | 2025-05-05 09:02 | XMS_ITS | Encounter Summary ---
Author Organization [employer] Address [address] [place] [address] 7 [place] [address] Care Team Providers Care Track Announcer Name Role Phone Gloria Cruz Primary Care Provider [phone] George Hays NET APPLICATIONS DEVELOPER Unavailable Unavailable Caio Briceño PharmD Unavailable [phone] Encounter Details Date Type Department Care Team (Late st Contact Info) Description 08/20/2022 Orders Only [facility] [address] [place] [address] Amanda Collins LPN Social History Tobacco Use [...] Description 07/07/2025 9:30 AM EST Office Visit [facility] MED[facility]INE [address] [place] [address] Malcolm Waters MD 230 [place] [address] documented as of this encounter Visit Diagnoses Not on filedocumented in this encounter Care Teams Track Announcer Relationship Specialty Start Date End Date Gloria Cruz ANP [address] [place] [address] PCP - General Family Medicine 02/11/21 George Hays FNP [address] [place] [address] Nurse Practitioner Family Medicine 05/25/23 Caio Briceño, BaljinderD [address] [place] [address] Pharmacist Internal Medicine 02/01/24 documented as of this encounter
--- OUTSIDE RECORDS SUMMARY | 2025-05-05 09:02 | XMS_ITS | Encounter Summary ---
Author Organization [employer] Address [address] [facility] 7t [place] [address] Care Team Providers Care Manufactured Buildings Supervisor Name Role Phone Gloria Cruz Primary Care Provider [phone] George Hays VP Unavailable Unavailable Caio Briceño PharmD Unavailable [phone] Reason for Visit * Reason Comments Med Refill Encounter Details Date Type Department Care Team ([facility] Contact Info) Description 10/24/2022 Refill [facility] MEDICINE [address] [place] [address] Gloria Cruz ANP 230 [place] [address] Social History Tobacco Use Types Packs/Day Years [...] Upcoming Encounters Date Type Department Care Team ([facility] Contact Info) Description 07/07/2025 9:30 AM EST Office Visit [facility] MED[facility]INE [address] [place] [address] Malcolm Waters MD 230 [place] [address] documented as of this encounter Visit Diagnoses Not on filedocumented in this encounter Care Teams Manufactured Buildings Supervisor Relationship Specialty Start Date End Date Gloria Cruz ANP [address] [place] [address] PCP - General Family Medicine 02/11/21 George Hays FNP [address] [place] [address] Nurse Practitioner Family Medicine 05/25/23 Caio Briceño, BaljinderD [address] [place] [address] Pharmacist Internal Medicine 02/01/24 documented as of this encounter
--- OUTSIDE RECORDS SUMMARY | 2025-05-05 09:02 | XMS_ITS | Encounter Summary ---
Author Organization [employer] Address [address] [place] [address] 7 [place] [address] Care Team Providers Care Manager Building Name Role Phone Gloria Cruz Primary Care Provider [phone] George Hays DIRECTOR OF PRODUCT DEVELOPMENT Unavailable Unavailable Caio Briceño PharmD Unavailable [phone] Encounter Details Date Type Department Care Team (Late st Contact Info) Description 07/22/2022 Orders Only [facility] MEDICINE [address] [place] [address] Silvia Keyes LPN Social History Tobacco Use [...] Description 07/07/2025 9:30 AM EST Office Visit [facility] MEDICINE [address] [place] [address] Malcolm Waters MD [address] [place] [address] documented as of this encounter Visit Diagnoses Not on filedocumented in this encounter Care Teams Manager Building Relationship Specialty Start Date End Date Gloria Cruz ANP [address] [place] [address] PCP - General Family Medicine 02/11/21 George Hays FNP 230 [place] [address] Nurse Practitioner Family Medicine 05/25/23 Caio Briceño, BaljinderD [address] [place] [address] Pharmacist Internal Medicine 02/01/24 documented as of this encounter
--- OUTSIDE RECORDS SUMMARY | 2025-05-05 09:02 | XMS_ITS | Encounter Summary ---
Author Organization [employer] Address [address] [facility] 7t [place] [address] Care Team Providers Care Blanking Machine Operator Name Role Phone Gloria Cruz Primary Care Provider [phone] George Hays RAILROAD CONSTRUCTION DIRECTOR Unavailable Unavailable Caio Briceño PharmD Unavailable [phone] Reason for Visit * Reason Onset Date Comments Nurse Triage 08/18/2023 Encounter Details Date Type Department Care Team (Late st Contact Info) Description 08/18/2023 Telephone [facility] MEDICINE 230 [place] [address] Gloria Cruz ANP [address] [place] [address] Nurse Triage Social History Tobacco Use Types [...] this outcome Please contact pt spouse at [phone] documented in this encounter Plan of Treatment Upcoming Encounters Date Type Department Care Team (Late st Contact Info) Description 07/07/2025 9:30 AM EST Office Visit [facility] MEDICINE [address] [place] [address] Malcolm Waters MD [address] [place] [address] documented as of this encounter Visit Diagnoses Not on filedocumented in this encounter Additional Health Concerns Assessment Noted Time PHQ-9 Depression Total Score: 0 08/03/19 24 2:06 PM EST documented as of this encounter Care Teams Blanking Machine Operator Relationship Specialty Start Date End Date Gloria Cruz ANP [address] [place] [address] PCP - General Family Medicine 02/11/21 George Hays FNP [address] [place] [address] Nurse Practitioner Family Medicine 05/25/23 Caio Briceño, Sandy [address] [place] [address] Pharmacist Internal Medicine 02/01/24 documented as of this encounter
--- OUTSIDE RECORDS SUMMARY | 2025-05-05 09:02 | XMS_ITS | Encounter Summary ---
Author Organization [employer] Address [address] [facility] 7t [place] [address] Care Team Providers Care Log Manager Name Role Phone Gloria Cruz PETRONA Primary Care Provider [phone] George Hays CYBER WORKFORCE DEVELOPER AND MANAGER Unavailable Unavailable Caio Briceño PharmD Unavailable [phone] Encounter Details Date Type Department Care Team ([facility] Contact Info) Description 12/31/2022 Orders Only [facility] [address] [place], [place] [phone] Amanda Collins LPN Social History Tobacco Use [...] Upcoming Encounters Date Type Department Care Team ([facility] Contact Info) Description 07/07/2025 9:30 AM EST Office Visit [facility] MEDICINE [address] [place] [address] Malcolm Waters MD [address] [place] [address] documented as of this encounter Visit Diagnoses Not on filedocumented in this encounter Care Teams Log Manager Relationship Specialty Start Date End Date Gloria Cruz ANP [address] [place] [address] PCP - General Family Medicine 02/11/21 George Hays FNP [address] [place] [address] Nurse Practitioner Family Medicine 05/25/23 Caio Briceño, BaljinderD [address] [place] [address] Pharmacist Internal Medicine 02/01/24 documented as of this encounter
--- OUTSIDE RECORDS SUMMARY | 2025-05-05 09:02 | XMS_ITS | Encounter Summary ---
Author Organization [employer] Address [address] [place] [address] 7 [place] [address] Care Team Providers Care Crude Unit Operator Name Role Phone Gloria Cruz Primary Care Provider [phone] George Hays PET GROOMER Unavailable Unavailable Caio Briceño PharmD Unavailable [phone] Reason for Visit * Reason Onset Date Comments Med Refill 07/30/2022 Encounter Details Date Type Department Care Team (Late st Contact Info) Description 07/30/2022 Telephone [facility] MEDICINE [address] [place] [address] Gloria Cruz ANP [address] [place] [address] Med Refill Social History Tobacco Use Types [...] 11:24 AM EST Medication was sent to [facility] on 07/24/22. Qty: 60 with 2 refills. * Telephone Encounter - Concepcion Cronin - 07/30/2022 10:30 AM EST Tc from pt requesting med refill for medication allopurinol (Zyloprim) 100 MG tablet. documented in this encounter Plan of Treatment Upcoming Encounters Date Type Department Care Team (Late st Contact Info) Description 07/07/2025 9:30 AM EST Office Visit [facility] MEDICINE [address] [place] [address] Malcolm Waters MD [address] [place], [place] documented as of this encounter Visit Diagnoses Not on filedocumented in this encounter Care Teams Crude Unit Operator Relationship Specialty Start Date End Date Gloria Cruz ANP [address] [place] [address] PCP - General Family Medicine 02/11/21 George Hays FNP [address] [place] [address] Nurse Practitioner Family Medicine 05/25/23 Caio Briceño, BaljinderD [address] [place] [phone] Pharmacist Internal Medicine 02/01/24 documented as of this encounter
--- OUTSIDE RECORDS SUMMARY | 2025-05-05 09:02 | XMS_ITS | Encounter Summary ---
Author Organization [employer] Address [address] [facility] 7t [place] [address] Care Team Providers Care Meter Attendant Name Role Phone Gloria Cruz Primary Care Provider [phone] George Hays GAS FURNACE INSTALLER Unavailable Unavailable Caio Briceño PharmD Unavailable [phone] Encounter Details Date Type Department Care Team (Late st Contact Info) Description 09/08/2022 Abstract [facility] [address] [place] [address] Gloria Cruz ANP 230 [place] [address] Social History Tobacco Use Types Packs/Day Years [...] Description 07/07/2025 9:30 AM EST Office Visit [facility] MED[facility] [address] [place] [address] Malcolm Waters MD [address] [place] [address] documented as of this encounter Visit Diagnoses Not on filedocumented in this encounter Care Teams Meter Attendant Relationship Specialty Start Date End Date Gloria Cruz ANP [address] [place] [address] PCP - General Family Medicine 02/11/21 George Hays FNP [address] [place] [address] Nurse Practitioner Family Medicine 05/25/23 Caio Briceño, BaljinderD [address] [place] [address] Pharmacist Internal Medicine 02/01/24 documented as of this encounter
--- OUTSIDE RECORDS SUMMARY | 2025-05-05 09:02 | XMS_ITS | Encounter Summary ---
Author Organization [employer] Address [address] [facility] 7t [place] [address] Care Team Providers Care Passenger Solicitor Name Role Phone Gloria Cruz Primary Care Provider [phone] George Hays GUIDE EXCURSION Unavailable Unavailable Caio Briceño PharmD Unavailable [phone] Reason for Visit * Reason Onset Date Comments triage 10/14/2022 Encounter Details Date Type Department Care Team (Late st Contact Info) Description 10/14/2022 Telephone [facility] [address] [place] [address] Gloria Cruz ANP [address] [place] [address] triage Social History Tobacco Use Types Packs/Day [...] accepted this outcome Please contact spouse at [phone] documented in this encounter Plan of Treatment Upcoming Encounters Date Type Department Care Team (Late st Contact Info) Description 07/07/2025 9:30 AM EST Office Visit [facility] [address] [place] [address] Malcolm Waters MD [address] [place] [address] documented as of this encounter Visit Diagnoses Not on filedocumented in this encounter Care Teams Passenger Solicitor Relationship Specialty Start Date End Date Gloria Cruz ANP [address] [place] [address] PCP - General Family Medicine 02/11/21 George Hays FNP [address] [place] [address] Nurse Practitioner Family Medicine 05/25/23 Caio Briceño, BaljinderD [address] [place] [address] Pharmacist Internal Medicine 02/01/24 documented as of this encounter
--- OUTSIDE RECORDS SUMMARY | 2025-05-05 09:02 | XMS_ITS | Encounter Summary ---
Author Organization [employer] Address [address] [facility] 7t [place] [address] Care Team Providers Care Towerman Name Role Phone Gloria Cruz Primary Care Provider George Hays DIRECTOR OF MAINTENANCE Unavailable Unavailable Caio Briceño PharmD Unavailable [phone] Encounter Details Date Type Department Care Team (Late st Contact Info) Description 04/03/2025 Refill [facility] [address] [place], [place] [phone] Gloria Cruz ANP [address] [place] [address] Alcohol consumption binge drinking; Essential hypertension Social History Tobacco Use Types Packs/Day Years [...] Description 07/07/2025 9:30 AM EST Office Visit [facility] [address] [place] [address] Malcolm Waters MD [address] [place] [address] documented as of this encounter Goals Goal Patient Goal Type Associated Problems Recent Progress Patient-Stated? Author Blood Pressure < 140/90 Blood Pressure 124/78(2024 11:20 AM EDT) No Caio Briceño, PharmD Hemoglobin A1c < 7 Result Component 8.4( 11:24 AM EDT) No Caio Briceño, PharmD documented as of this encounter Visit Diagnoses Diagnosis Alcohol consumption binge drinking Essential hypertension Unspecified essential hypertension documented in this encounter Additional Health Concerns Assessment Noted Time PHQ-9 Depression Total Score: 0 11/05/19 25 11:12 AM EDT documented as of this encounter Care Teams Towerman Relationship Specialty Start Date End Date Gloria Cruz ANP [address] [place] [address] PCP - General Family Medicine 02/11/21 George Hays FNP [address] [place] [address] Nurse Practitioner Family Medicine 05/25/23 Caio Briceño, BaljinderD [address] [place] [address] Pharmacist Internal Medicine 02/01/24 documented as of this encounter
--- OUTSIDE RECORDS SUMMARY | 2025-05-05 09:03 | XMS_ITS | Encounter Summary ---
Author Organization [employer] Address 75 [facility] 7t [place] [address] Care Team Providers Care Field Checker Name Role Phone Gloria Cruz Primary Care Provider [phone] George Hays BUSINESS PERFORMANCE ADVISOR Unavailable Unavailable Caio Briceño PharmD Unavailable [phone] Reason for Visit * Reason Onset Date Comments Call Back Request 12/25/2023 Encounter Details Date Type Department Care Team ([facility] st Contact Info) Description 12/25/2023 Telephone [facility] [address] [place] [address] Gloria Cruz ANP [address] [place] [address] Call Back Request Social History Tobacco Use [...] Description 07/07/2025 9:30 AM EST Office Visit [facility] [address] [place] [address] Malcolm Waters MD [address] [place] [address] documented as of this encounter Visit Diagnoses Not on filedocumented in this encounter Additional Health Concerns Assessment Noted Time PHQ-9 Depression Total Score: 0 09/29/19 24 9:20 AM EDT documented as of this encounter Care Teams Field Checker Relationship Specialty Start Date End Date Gloria Cruz ANP [address] [place] [address] PCP - General Family Medicine 02/11/21 George Hays FNP [address] [place] [address] Nurse Practitioner Family Medicine 05/25/23 Caio Briceño, PharmD [address] [place] [address] Pharmacist Internal Medicine 02/01/24 documented as of this encounter
--- OUTSIDE RECORDS SUMMARY | 2025-05-05 09:03 | XMS_ITS | Encounter Summary ---
Author Organization [employer] Address 75 [facility] 7t [place] [address] Care Team Providers Care Die Press Operator Name Role Phone Gloria Cruz Primary Care Provider [phone] George Hays Unavailable Unavailable Caio Briceño PharmD Unavailable [phone] Reason for Visit * Reason Comments Med Refill Encounter Details Date Type Department Care Team ([facility] st Contact Info) Description 10/14/2023 Refill [facility] [address] [place] [address] Gloria Cruz ANP 230 [place] [address] Social History Tobacco Use Types Packs/Day Years [...] Description 07/07/2025 9:30 AM EST Office Visit [facility] [address] [place] [address] Malcolm Waters MD 230 [place] [address] documented as of this encounter Visit Diagnoses Not on filedocumented in this encounter Additional Health Concerns Assessment Noted Time PHQ-9 Depression Total Score: 0 09/29/19 9:20 AM EDT documented as of this encounter Care Teams Die Press Operator Relationship Specialty Start Date End Date Gloria Cruz ANP [address] [place] [address] PCP - General Family Medicine 02/11/21 George Hays FNP [address] [place] [address] Nurse Practitioner Family Medicine 05/25/23 Caio Briceño, Sandy [address] [place] [address] Pharmacist Internal Medicine 02/01/24 documented as of this encounter
--- OUTSIDE RECORDS SUMMARY | 2025-05-05 09:03 | XMS_ITS | Clinical Summary ---
Author Organization [employer] [facility] it Address [address] [place] [address] Care Team Providers Care Front End Wheel Loader Operator Name Role Phone Unavailable Primary Care Provider [...] of 3 - 19+ 3-dose series) 2005 HPV Vaccines (1 - 3-dose SCD M series) 2013 Depression Screening 06/29/2024 COVID-19 Vaccine (1 - [...]
--- OUTSIDE RECORDS SUMMARY | 2025-05-05 09:03 | XMS_ITS | Clinical Summary ---
Author Organization [employer] Address 75 [facility] 7t [place] [address] Care Team Providers Care Bail Bonding Agent Name Role Phone Gloria Cruz PETRONA Primary Care Provider [phone] George Hays REPTILE KEEPER Unavailable Unavailable Caio Briceño PharmD Unavailable Allergies Active Allergy Reactions Criticality Noted Date Comments Metformin Rash Low 12/04/2020 Medications * This document contains information received from the source organization and may not represent a complete record from that organization. Aspirin Low Dose 81 MG EC tablet Take 81 mg by mouth in the morning. 022 Active Blood Pressure kit 1 kit in the morning. 1 kit 023 Active Continuous Blood Gluc Otologist ([employer] Baljinder 2 [place]) device Scan sensor every 8 hours 1 each 023 Active calcipotriene (Dovonex) 0.005 % ointmentIndicatio ns:Psoriasis vulgaris Apply topically 2 times daily. 60 g 3 024 Active betamethasone, augmented, (Diprolene) 0.05 % ointmentIndicatio ns:Psoriasis vulgaris Apply topically 2 times daily. 50 g 3 024 Active losartan-hydroCHL OROthiazide (Hyzaar) 100-12.5 MG tablet Take 1 tablet by mouth in the morning. 024 Active Lancets 33G miscIndications:T ype 2 diabetes mellitus with hyperlipidemia (HCC) Use to test blood sugar as needed for sensor failure or hypoglycemia (up to QID) 100 each 11 024 Active insulin lispro (HumaLOG KWIKPEN) 100 UNIT/ML injectionIndicati ons:Type 2 diabetes mellitus with hyperlipidemia (HCC) Inject 4 units under the skin once daily before dinner. 15 mL 3 025 Active Continuous Glucose Sensor (FreeStyle Baljinder 3 Plus Sensor) miscIndications:T ype 2 diabetes mellitus with hyperlipidemia (HCC) Apply 1 Device topically every 15 days. 2 each Active ketoconazole (NIZOral) 2 % creamIndications: Balanitis Apply topically 2 times daily. For 2-4 weeks 60 g 025 Active Pentips Generic Pen [place] 32G X 4 MM misc USE DIRECTED EVERY DAY 100 each 2 025 Active glucose blood (FreeStyle Precision Jorge Test) test strip USE DIRECTED TO TEST BLOOD SUGAR FOUR TIMES DAILY 100 strip Active Alcohol Swabs (Alcohol Prep) 70 % pads USE DIRECTED THREE TIMES DAILY 100 each 11 025 Active glipiZIDE XL (Glucotrol XL) 10 MG 24 hr tabletIndications :Type 2 diabetes mellitus with hyperlipidemia (HCC) TAKE 1 TABLET BY MOUTH EVERY MORNING DO NOT BREAK, CRUSH, DISSOLVE OR CHEW 90 tablet 3 Active ARIPiprazole (Abilify) 5 MG tablet TAKE 1 TABLET BY MOUTH EVERY MORNING 90 tablet 3 Active insulin degludec (Tresiba FlexTouch) 200 UNIT/ML injectionIndicati ons:Type 2 diabetes mellitus with hyperlipidemia (HCC) Inject 70 units under the skin once daily 18 mL 11 025 Active Mounjaro 15 MG/0.5ML solution auto-injectorIndi cations:Type 2 diabetes mellitus with hyperlipidemia (HCC) INJECT ONE PEN (=15MG) SUBCUTANEOUSLY ONCE A WEEK DIRECTED 2 mL 5 025 Active D3 Super Strength 50 MCG (1999 UT) capsule Take 50 mcg by mouth in the morning. 025 Active omega-3 acid ethyl esters (Lovaza) 1 g capsuleIndication s:Hypertriglyceri demia Take 2 capsules (2 g) by mouth 2 times daily. 120 capsule 025 2025 Active atorvastatin (Lipitor) 20 MG tabletIndications :Hyperlipidemia associated with type 2 diabetes mellitus (HCC) TAKE 1 TABLET BY MOUTH AT BEDTIME 90 tablet 025 Active pantoprazole (ProtoNix) 20 MG EC tabletIndications :Alcohol consumption binge drinking TAKE 1 TABLET BY MOUTH EVERY MORNING 90 tablet 025 Active prazosin (Minipress) 1 MG capsule TAKE 1 CAPSULE BY MOUTH AT BEDTIME 90 capsule 025 Active amLODIPine (Norvasc) 5 MG tabletIndications :Essential hypertension TAKE 1 TABLET BY MOUTH AT BEDTIME 90 tablet 025 Active allopurinol (Zyloprim) 100 MG tabletIndications :Idiopathic chronic gout without tophus, unspecified site TAKE 2 TABLETS BY MOUTH ONCE DAILY IN THE MORNING 180 tablet 2 025 Active allopurinol (Zyloprim) 100 MG tabletIndications :Idiopathic chronic gout without tophus, unspecified site TAKE 2 TABLETS BY MOUTH ONCE DAILY IN THE MORNING 180 tablet 2 025 2024 Discontinued Active Problems Problem Noted Date Diagnosed Date [...] Smoking 06/30/2023 Overview (06/30/2023): Quit 06/29/23 from 2 PPD, using nicotine vape AARON (obstructive sleep [...] below 88% for 20 min. Rx'd APAP [id number]. Mood disorder 02/02/2023 Assessment & Plan (09/29/2023 [...] management. For any questions or concerns, call [facility]. He will continue with therapist as usual, [...] for assistance. PLAN: 1. Follow up with [facility]: Not recommended for follow-up 2. Patient goal is to engage in services (therapy and pharmacology). 3. Behavioral Recommendations a. Patient will utilize coping skills dicussed during encounter b. Patient will comply with medication, once service begins c. Patient will reach out to one of the [facility], if needed Kamaljit 07/16/2021 Type 2 diabetes mellitus with hyperlipidemia Overview (02/25/2024): Lab Results Component Value Date [...] gouty arthritis 11/19/2016 Tinea pedis 11/19/2016 Encounters * This document contains information received from the source organization and may not represent a complete record from that organization. Date Type Department Care Team Description 04/20/2025 Refill [facility] [address] [place] [address] Gloria Cruz ANP Idiopathic chronic gout without tophus, unspecified site 04/19/2025 Telephone [facility] [address] [place] [address] Gloria Cruz ANP 04/03/2025 Refill [facility] [address] [place] [address] Gloria Cruz ANP Alcohol consumption binge drinking; Essential hypertension 04/03/2025 Refill [facility] [address] [place] [address] Brad Burnett MD Alcohol consumption binge drinking; Essential hypertension 02/10/2025 11:15 AM EDT Office Visit [address] [address] Gloria Cruz ANP Type 2 diabetes mellitus with hyperlipidemia (CMS/HCC) (CMS/HCC) (Primary Dx); Rash; Metabolic dysfunction-associated steatotic liver disease (MASLD); AARON (obstructive sleep apnea); Alcohol abuse; Dietary counseling; Exercise counseling; Elevated LFTs 02/10/[address] [address] Vickie Lomax RN Referral 02/10/[address] [phone] Gloria Cruz ANP Appointment Request 02/10/2025 Travel 02/09/[address] [phone] Gloria Cruz ANP Chart Prep from Last 3 Months Immunizations Immunization Administration [...] the past 12 months, has t he [employer], gas, oil or water company threatened to [...] Description 07/07/2025 9:30 AM EST Office Visit [facility] [address] [place] [address] Malcolm Waters MD [address] [place] [address] Health Maintenance Due Date Last Done Comments [...] 2 diabetes mellitus with hyperlipidemia (CMS/HCC) (CMS/HCC) LIPID PANEL WITH REFLEX TO DIRECT LDL [...] Media Lot # [id number] Lot# Expiration Date ,575,980 Blood 02/10/2025 11:2 4 AM EDT us Gloria Cruz ANP POINT OF CARE TEST ENTER/EDIT OR DERABLES Final Result * (ABNORMAL) POCT Glucose (02/10/2025 11:22 AM EDT) Glucose Blood, POC 318(A) 60 - 200 mg/dL QC Media Lot # [id number] Lot# Expiration Date ,188,850 Blood Capillary blood specimen / Unknown 02/10/2025 11:22 AM EDT us Gloria Cruz ANP POINT OF CARE TEST ENTER/EDIT OR DERABLES Final Result * (ABNORMAL) Lipid Panel with Reflex to Direct LDL (11/18/2024 9:40 AM EDT) Triglycerides 288(H) <150 mg/dL [facility] Comment:Desirable Triglyceri de: less than 150 mg/dLBorderline High Triglyceride 150-199 mg/dLHigh Triglyceride: 200-499 mg/dLVery High Triglyceride: greater than or equal to 5OO mg/dL Cholesterol 103 <200 mg/dL [facility] Comment:Desirable Cholestero l: less than 200 mg/dLBorderline High Cholesterol: 200-239 mg/dLHigh Cholesterol: greater than 239 mg/dL LDL Cholesterol Calculated 20 <100 mg/dL [facility] Comment:Desirable LDL: less than 100 mg/dLNear Optimal/Above Optimal LDL: 110- 129 mg/dLBorderline High LDL: 130-159 mg/dLHigh LDL: 160-189 mg/dLVery High LDL: greater than or equal to 190 mg/dL HDL Cholesterol 26(L) >40 mg/dL [facility] Comment:Desirable HDL: great er than 40 mg/dL Note: This HDL assay may give artificially low results in patients with liver disease. 11/18/2024 9:40 AM EDT 11/18/2024 9:40 AM EDT Generic External Data Provider LAB BLOOD ORDERAB LES Final Result Performing Organization Address [facility] de Phone Number [facility] [address] [place] [phone] * Albumin, Random Urine W/Creatinine (12/29/2023 9:12 AM EDT) Creatinine, Urine 448.59 mg/dL [facility] Microalbumin Urine 91.0 mg/L [facility] Microalbum Creatinine Ratio Ur 20.2 <30 ug/mg cr [facility] Comment:Albumin/Creatinine R atio Reference Ranges: Normal: < 30 ug/mg creatinine Microalbuminuria: 30 - 300 ug/mg creatinineClinical Albuminuria: > 300 ug/mg creatinine Urine 12/29/2023 9:12 AM EDT 12/29/2023 10:43 AM EDT Gloria Cruz ANP LAB URINE ORDERABLES Final Resul t Performing Organization Address [facility] de Phone Number [facility] [address] [place] [phone] * HEPATITIS C AB W/REFL TO HCV RNA, QN, PCR (03/21/2021 9:44 AM EDT) HEPATITIS C ANTIBODY NON-REACT DAWN NON-REACT DAWN [facility] INDEX 0.08 <1.00 [facility] Comment: HCV antibody was non-reactive. There is no laboratory evidence of HCV infection. In most cases, no further action is required. However, if recent HCV exposure is suspected, a test for HCV RNA (test code 01454) is suggested. For additional information please refer to http://education.[employer]/faq/TDV66z7 (This link is being provided for informational/ educational purposes only.) 03/21/2021 9:44 AM EDT us Gloria Cruz ANP HISTORICAL/NON ORDERABLE LABS Fi nal Result [facility] [address] * HIV 1/2 ANTIGEN/ANTIBODY,FOURTH GENERATION W/RFL (03/21/2021 9:44 AM EDT) HIV-1/2 ANTIGEN AND ANTIBODIES, 4TH GENERATION W/ REFLEX NON-REACT DAWN NON-REACT DAWN [facility] Comment: HIV-1 antigen and HIV-1/HIV-2 [...] purpose. For additional information please refer to http://education.[employer]/faq/MCE793 (This link is being provided for informational/ educational purposes only.) The performance of this assay has not been clinically validated in patients less than 2 years old. 03/21/2021 9:44 AM EDT [facility] LAB BLOOD ORDERABLES Final Resul t [facility] [address] from Last 3 Months or Most Recently Relevant to Health Maintenance Insurance [employer] Care Teams Bail Bonding Agent Relationship Specialty Start Date End Date Gloria Cruz ANP [address] [place] [address] PCP - General Family Medicine 02/11/21 George Hays FNP [address] [place] [address] Nurse Practitioner Family Medicine 05/25/23 Caio Briceño, BaljinderD [address] [place] [address] Pharmacist Internal Medicine 02/01/24
== END 2025-05-05 09:00 | disposition home or self-care (01) ==
LOC: HO.HSMS 08:30
PROVIDERS: PCP Nurse Practitioner Primary Care; Visit Provider Physician Assistant Medical
DX: G47.33 Obstructive sleep apnea (adult) (pediatric) (principal); F51.4 Sleep terrors [night terrors]; G25.81 Restless legs syndrome; E66.01 Morbid (severe) obesity due to excess calories; Z68.41 Body mass index [BMI] 40.0-44.9, adult; R25.2 Cramp and spasm
CPT/HCPCS: 99214

== ENCOUNTER → 2025-05-05 08:29 | Outpatient (BNVA) | payer MEDICAID, SELFPAY | PROVIDERS: PCP Nurse Practitioner Primary Care; Visit Provider Physician Assistant Medical | DX: E66.813 Obesity, class 3 (principal); G47.33 Obstructive sleep apnea (adult) (pediatric); F51.4 Sleep terrors [night terrors]; G25.81 Restless legs syndrome; Z68.41 Body mass index [BMI] 40.0-44.9, adult | CPT/HCPCS: 99212 ==

== ENCOUNTER 2025-05-19 11:27 | Outpatient (REF) | payer MEDICAID, SELFPAY ==
--- OUTSIDE RECORDS SUMMARY | 2025-05-19 12:18 | XMS_ITS | Encounter Summary ---
Author Organization [employer] Address [address] [facility] 7t [place] [address] Care Team Providers Care Metal Sheet Roller Operator Name Role Phone Gloria Cruz Primary Care Provider [phone] George Hays OFFICE AUTOMATION CLERK Unavailable Unavailable Caio Briceño PharmD Unavailable [phone] Encounter Details Date Type Department Care Team (Late st Contact Info) Description 09/08/2022 Abstract [facility] [address] [place] [address] Gloria Cruz ANP [address] [place] [address] Social History Tobacco Use Types Packs/Day Years [...] Description 07/07/2025 9:30 AM EST Office Visit [facility] [address] [place] [address] Malcolm Waters MD [address] [place] [address] documented as of this encounter Visit Diagnoses Not on filedocumented in this encounter Care Teams Metal Sheet Roller Operator Relationship Specialty Start Date End Date Gloria Cruz ANP [address] [place] [address] PCP - General Family Medicine 02/11/21 George Hays FNP [address] [place] [address] Nurse Practitioner Family Medicine 05/25/23 Caio Briceño, BaljinderD [address] [place] [phone] Pharmacist Internal Medicine 02/01/24 documented as of this encounter
--- OUTSIDE RECORDS SUMMARY | 2025-05-19 12:18 | XMS_ITS | Encounter Summary ---
Author Organization [employer] Address [address] [place] [address] 7 [place] [address] Care Team Providers Care Armor Reconnaissance Vehicle Driver Name Role Phone Gloria Cruz Primary Care Provider [phone] George Hays CHIEF JUVENILE PROBATION OFFICER Unavailable Unavailable Caio Briceño PharmD Unavailable [phone] Encounter Details Date Type Department Care Team (Late st Contact Info) Description 09/01/2022 Orders Only [facility] [address] [place] [address] Silvia Keyes LPN Social History Tobacco Use [...] Description 07/07/2025 9:30 AM EST Office Visit [facility] [address] [place] [address] Malcolm Waters MD [address] [place] [address] documented as of this encounter Visit Diagnoses Not on filedocumented in this encounter Care Teams Armor Reconnaissance Vehicle Driver Relationship Specialty Start Date End Date Gloria Cruz ANP [address] [place] [address] PCP - General Family Medicine 02/11/21 George Hays FNP [address] [place] [address] Nurse Practitioner Family Medicine 05/25/23 Caio Briceño, BaljinderD [address] [place] [address] Pharmacist Internal Medicine 02/01/24 documented as of this encounter
--- OUTSIDE RECORDS SUMMARY | 2025-05-19 12:18 | XMS_ITS | Clinical Summary ---
Author Organization [employer] [facility] it Address [address] [place] [address] Care Team Providers Care Boiler Inspector Name Role Phone Unavailable Primary Care Provider [...] Depression Screening 06/29/2024 COVID-19 Vaccine (1 - 2024-2 6 season) 2025 Influenza Vaccine (#1) 2025 RSV [...]
--- OUTSIDE RECORDS SUMMARY | 2025-05-19 12:18 | XMS_ITS | Encounter Summary ---
Author Organization [employer] Address [address] [place] [address] 7 [place] [address] Care Team Providers Care Chief Hydroelectric Station Operator Name Role Phone Gloria Cruz Primary Care Provider [phone] George Hays SHAFT HEADMAN Unavailable Unavailable Caio Briceño PharmD Unavailable [phone] Encounter Details Date Type Department Care Team (Late st Contact Info) Description 08/20/2022 Orders Only [facility] [address] [place] [address] Amanda Collins LPN Social History Tobacco Use [...] Description 07/07/2025 9:30 AM EST Office Visit [facility] [address] [place] [address] Malcolm Waters MD [address] [place] [address] documented as of this encounter Visit Diagnoses Not on filedocumented in this encounter Care Teams Chief Hydroelectric Station Operator Relationship Specialty Start Date End Date Gloria Cruz ANP [address] [place] [address] PCP - General Family Medicine 02/11/21 George Hays FNP [address] [place] [address] Nurse Practitioner Family Medicine 05/25/23 Caio Briceño, BaljinderD [address] [place] [address] Pharmacist Internal Medicine 02/01/24 documented as of this encounter
--- OUTSIDE RECORDS SUMMARY | 2025-05-19 12:18 | XMS_ITS | Encounter Summary ---
Author Organization [employer] Address [address] [facility] 7t [place] [address] Care Team Providers Care Molder Helper Name Role Phone Gloria Cruz PETRONA Primary Care Provider [phone] George Hays IMPREGNATOR Unavailable Unavailable Caio Briceño PharmD Unavailable [phone] Encounter Details Date Type Department Care Team ([facility] Contact Info) Description 12/31/2022 Orders Only [facility] [address] [place], [place] [phone] Amanda Collins LPN Social History Tobacco Use [...] Upcoming Encounters Date Type Department Care Team ([facility] Contact Info) Description 07/07/2025 9:30 AM EST Office Visit [facility] MEDICINE [address] [place] [address] Malcolm Waters MD [address] [place] [address] documented as of this encounter Visit Diagnoses Not on filedocumented in this encounter Care Teams Molder Helper Relationship Specialty Start Date End Date Gloria Cruz ANP [address] [place] [address] PCP - General Family Medicine 02/11/21 George Hays FNP [address] [place] [address] Nurse Practitioner Family Medicine 05/25/23 Caio Briceño, BaljinderD [address] [place] [address] Pharmacist Internal Medicine 02/01/24 documented as of this encounter
--- OUTSIDE RECORDS SUMMARY | 2025-05-19 12:18 | XMS_ITS | Encounter Summary ---
Author Organization [employer] Address [address] [place] [address] 7 [place] [address] Care Team Providers Care Environmental Studies Program Director Name Role Phone Gloria Cruz Primary Care Provider [phone] George Hays HAT LACER Unavailable Unavailable Caio Briceño PharmD Unavailable [phone] Encounter Details Date Type Department Care Team (Late st Contact Info) Description 07/22/2022 Orders Only [facility] MED[facility] [address] [place] [phone] Silvia Keyes LPN Social History Tobacco Use [...] Description 07/07/2025 9:30 AM EST Office Visit [facility] [address] [place] [address] Malcolm Waters MD [address] [place] [address] documented as of this encounter Visit Diagnoses Not on filedocumented in this encounter Care Teams Environmental Studies Program Director Relationship Specialty Start Date End Date Gloria Cruz ANP [address] [place] [address] PCP - General Family Medicine 02/11/21 George Hays FNP [address] [place] [address] Nurse Practitioner Family Medicine 05/25/23 Caio Briceño, BaljinderD [address] [place] [address] Pharmacist Internal Medicine 02/01/24 documented as of this encounter
--- OUTSIDE RECORDS SUMMARY | 2025-05-19 12:18 | XMS_ITS | Encounter Summary ---
Author Organization [employer] Address [address] [facility] 7t [place] [address] Care Team Providers Care Vacuum Filter Operator Name Role Phone Gloria Cruz Primary Care Provider [phone] George Hays WELLNESS COORDINATOR Unavailable Unavailable Caio Briceño PharmD Unavailable [phone] Reason for Visit * Reason Comments Med Refill Encounter Details Date Type Department Care Team ([facility] Contact Info) Description 10/24/2022 Refill [facility] MED[facility]INE [address] [place] [address] Gloria Cruz ANP [address] [place] [address] Social History Tobacco Use Types Packs/Day Years [...] Upcoming Encounters Date Type Department Care Team ([facility] Contact Info) Description 07/07/2025 9:30 AM EST Office Visit [facility] MED[facility]INE [address] [place] [address] Malcolm Waters MD [address] [place] [address] documented as of this encounter Visit Diagnoses Not on filedocumented in this encounter Care Teams Vacuum Filter Operator Relationship Specialty Start Date End Date Gloria Cruz ANP [address] [place] [address] PCP - General Family Medicine 02/11/21 George Hays FNP [address] [place] [address] Nurse Practitioner Family Medicine 05/25/23 Caio Briceño, BaljinderD [address] [place] [address] Pharmacist Internal Medicine 02/01/24 documented as of this encounter
--- OUTSIDE RECORDS SUMMARY | 2025-05-19 12:18 | XMS_ITS | Encounter Summary ---
Author Organization [employer] Address [address] [facility] 7t [place] [address] Care Team Providers Care Bike Mechanic Name Role Phone Gloria Cruz Primary Care Provider [phone] BAILIFF Unavailable Unavailable Caio Briceño PharmD Unavailable [phone] Reason for Visit * Reason Onset Date Comments Call Back Request 12/25/2023 Encounter Details Date Type Department Care Team ([facility] st Contact Info) Description 12/25/2023 Telephone [facility] [address] [place] [address] Gloria Cruz ANP [address] [place] [address] Call Back Request Social History Tobacco Use [...] AM EST Office Visit [facility] [address] [place] [phone] Malcolm Waters MD [address] [place] [address] documented as of this encounter Visit Diagnoses Not on filedocumented in this encounter Additional Health Concerns Assessment Noted Time PHQ-9 Depression Total Score: 0 09/29/19 24 9:20 AM EDT documented as of this encounter Care Teams Bike Mechanic Relationship Specialty Start Date End Date Gloria Cruz ANP [address] [place] [address] PCP - General Family Medicine 02/11/21 George Hays FNP [address] [place] [address] Nurse Practitioner Family Medicine 05/25/23 Caio Briceño, PharmD [address] [place] [address] Pharmacist Internal Medicine 02/01/24 documented as of this encounter
--- OUTSIDE RECORDS SUMMARY | 2025-05-19 12:18 | XMS_ITS | Encounter Summary ---
Author Organization [employer] Address [address] [facility] 7t [place] [address] Care Team Providers Care Director [employer] Name Role Phone Gloria Cruz Primary Care Provider [phone] George Hays ALGORITHM DESIGN ENGINEER Unavailable Unavailable Caio Briceño PharmD Unavailable [phone] Reason for Visit * Reason Onset Date Comments Nurse Triage 08/18/2023 Encounter Details Date Type Department Care Team (Late st Contact Info) Description 08/18/2023 Telephone [facility] [address] [place] [address] Gloria Cruz ANP [address] [place] [address] Nurse Triage Social History Tobacco Use Types [...] this outcome Please contact pt spouse at [phone] documented in this encounter Plan of Treatment Upcoming Encounters Date Type Department Care Team (Late st Contact Info) Description 07/07/2025 9:30 AM EST Office Visit [facility] [address] [place] [address] Malcolm Waters MD [address] [place] [address] documented as of this encounter Visit Diagnoses Not on filedocumented in this encounter Additional Health Concerns Assessment Noted Time PHQ-9 Depression Total Score: 0 08/03/19 24 2:06 PM EST documented as of this encounter Care Teams Director [employer] Relationship Specialty Start Date End Date Gloria Cruz ANP [address] [place] [address] PCP - General Family Medicine 02/11/21 George Hays FNP [address] [place] [address] Nurse Practitioner Family Medicine 05/25/23 Caio Briceño, Sandy [address] [place] [address] Pharmacist Internal Medicine 02/01/24 documented as of this encounter
--- OUTSIDE RECORDS SUMMARY | 2025-05-19 12:18 | XMS_ITS | Encounter Summary ---
Author Organization [employer] Address [address] [facility] 7t [place] [address] Care Team Providers Care Supervisor Dried Yeast Name Role Phone Gloria Cruz Primary Care Provider [phone] George Hays CONTOUR PATH TAPE MILL OPERATOR Unavailable Unavailable Caio Briceño PharmD Unavailable [phone] Encounter Details Date Type Department Care Team (Late st Contact Info) Description 04/03/2025 Refill [facility] [address] [place], [place] [phone] Gloria Cruz ANP [address] [place] [address] Alcohol consumption binge drinking; Essential hypertension Social [...] 9:30 AM EST Office Visit [facility] [address] [place] [address] Malcolm Waters MD [address] [place] [address] documented as of this encounter Goals Goal [...] documented as of this encounter Care Teams Supervisor Dried Yeast Relationship Specialty Start Date End Date Gloria Cruz ANP [address] [place] [address] PCP - General Family Medicine 02/11/21 George Hays FNP [address] [place] [address] Nurse Practitioner Family Medicine 05/25/23 Caio Briceño, BaljinderD [address] [place] [address] Pharmacist Internal Medicine 02/01/24 documented as of this encounter
--- OUTSIDE RECORDS SUMMARY | 2025-05-19 12:18 | XMS_ITS | Encounter Summary ---
Author Organization [employer] Address 75 [facility] 7t [place] [address] Care Team Providers Care Field Evidence Technician Name Role Phone Gloria Cruz Primary Care Provider [phone] George Hays GOVERNMENT CONTRACTS MANAGER Unavailable Unavailable Caio Briceño PharmD Unavailable [phone] Reason for Visit * Reason Onset Date Comments triage 10/14/2022 Encounter Details Date Type Department Care Team (Late st Contact Info) Description 10/14/2022 Telephone [facility] [address] [place] [address] Gloria Cruz ANP [address] [place] [address] triage Social History Tobacco Use Types Packs/Day [...] accepted this outcome Please contact spouse at [phone] documented in this encounter Plan of Treatment Upcoming Encounters Date Type Department Care Team (Late st Contact Info) Description 07/07/2025 9:30 AM EST Office Visit [facility] [address] [place] [address] Malcolm Waters MD [address] [place] [address] documented as of this encounter Visit Diagnoses Not on filedocumented in this encounter Care Teams Field Evidence Technician Relationship Specialty Start Date End Date Gloria Cruz ANP [address] [place] [address] PCP - General Family Medicine 02/11/21 George Hays FNP [address] [place] [address] Nurse Practitioner Family Medicine 05/25/23 Caio Briceño, BaljinderD [address] [place] [address] Pharmacist Internal Medicine 02/01/24 documented as of this encounter
--- OUTSIDE RECORDS SUMMARY | 2025-05-19 12:18 | XMS_ITS | Clinical Summary ---
Author Organization [employer] Address 75 [facility] 7t [place] [address] Care Team Providers Care Library Media Assistant Name Role Phone Gloria Cruz PETRONA Primary Care Provider George Hays COMPOSER TEACHING ARTIST Unavailable Unavailable Caio Briceño PharmD Unavailable [phone] Allergies Active Allergy Reactions Criticality Noted Date [...] 1 kit 023 Active Continuous Blood Gluc Area Coordinator ([employer] GroupStyle Baljinder 2 Rolla) device Scan sensor every 8 hours 1 [...] hypoglycemia (up to QID) 100 each 11 05/18/20 25 1:15 PM EST 024 Active insulin lispro (HumaLOG KWIKPEN) 100 UNIT/ML injectionIndicati ons:Type 2 diabetes mellitus with hyperlipidemia (HCC) Inject 4 units under the skin once daily before dinner. 15 mL 3 025 Active Continuous Glucose Sensor (FreeStyle Baljinder 3 Plus Sensor) miscIndications:T ype 2 diabetes mellitus with hyperlipidemia (HCC) Apply 1 Device topically every 15 days. 2 each 05/18/20 1:15 PM EST 025 Active ketoconazole (NIZOral) 2 % creamIndications: Balanitis Apply topically 2 times daily. For 2-4 weeks 60 g 025 Active glucose blood (FreeStyle Precision Jorge Test) test strip USE DIRECTED TO TEST BLOOD SUGAR FOUR TIMES DAILY 100 strip 05/18/20 1:15 PM EST 025 Active Alcohol Swabs (Alcohol Prep) 70 % pads USE DIRECTED THREE TIMES DAILY 100 each Active glipiZIDE XL (Glucotrol XL) 10 MG 24 hr tabletIndications :Type 2 diabetes mellitus with hyperlipidemia (HCC) TAKE 1 TABLET BY MOUTH EVERY MORNING DO NOT BREAK, CRUSH, DISSOLVE OR CHEW 90 tablet 3 Active ARIPiprazole (Abilify) 5 MG tablet TAKE 1 TABLET BY MOUTH EVERY MORNING 90 tablet Active insulin degludec (Tresiba FlexTouch) 200 UNIT/ML injectionIndicati ons:Type 2 diabetes mellitus with hyperlipidemia (HCC) Inject 70 units under the skin once daily 18 mL 025 Active Mounjaro 15 MG/0.5ML solution auto-injectorIndi cations:Type 2 diabetes mellitus with hyperlipidemia (HCC) INJECT ONE PEN (=15MG) SUBCUTANEOUSLY ONCE A WEEK DIRECTED 2 mL 5 05/18/20 1:15 PM EST Active D3 Super Strength 50 MCG (1999 UT) capsule Take 50 mcg by mouth in the morning. 025 Active omega-3 acid ethyl esters (Lovaza) 1 g capsuleIndication s:Hypertriglyceri demia Take 2 capsules (2 g) by mouth 2 times daily. 120 capsule 11 025 2025 Active atorvastatin (Lipitor) 20 MG [...] THE MORNING 180 tablet 2 025 Active TechLite Pen [place] 32G X 4 MM misc USE DIRECTED EVERY DAY 100 each 3 025 Active Pentips Generic Pen [place] 32G X 4 MM misc USE DIRECTED EVERY DAY 100 each 2 025 2024 Discontinued allopurinol (Zyloprim) 100 MG tabletIndications :Idiopathic chronic [...] below 88% for 20 min. Rx'd APAP [id number]. Mood disorder 02/02/2023 Assessment & Plan (09/29/2023 [...] management. For any questions or concerns, call [facility]. He will continue with therapist as usual, [...] for assistance. PLAN: 1. Follow up with [facility]: Not recommended for follow-up 2. Patient goal is to engage in services (therapy and pharmacology). 3. Behavioral Recommendations a. Patient will utilize coping skills dicussed during encounter b. Patient will comply with medication, once service begins c. Patient will reach out to one of the [facility], if needed Kamaljit 07/16/2021 Type 2 diabetes [...] organization. Date Type Department Care Team Description 05/10/2025 Refill [facility] MEDICINE [address] [place] [address] Gloria Cruz ANP 04/20/2025 Refill [facility] [address] [place] [address] Gloria Cruz ANP Idiopathic chronic gout without tophus, unspecified site 04/19/2025 Telephone [facility] [address] [place] [address] Gloria Cruz ANP 04/03/2025 Refill [facility] [address] [place] [address] Gloria Cruz ANP Alcohol consumption binge drinking; Essential hypertension 04/03/2025 Refill [facility] [address] [place] [address] Brad Burnett MD Alcohol consumption binge drinking; Essential hypertension from Last 3 Months Immunizations Immunization Administration [...] [facility] [address] [place] [address] Malcolm Waters MD [address] [place] [address] Health Maintenance Due Date Last Done Comments Eye Exam 1996 Family Planning (PISQ) 2001 HPV Vaccines (1 - Male 3-dose series) 2001 Hepatitis A Vaccines (1 of 2 - Risk 2-dose series) 2005 Diabetes: Urine Protein Screening 12/28/2024 12/29/2023, 12/29/2023, 03/21/2021, Additional history exists Hepatitis B Vaccines (3 of 3 - 19+ 3-dose series) 01/12/2025 08/12/2024, 07/15/2024 COVID-19 Vaccine (2024- season) 2025 07/15/2024, 08/12/2021, 11/19/2020, Additional history exists Influenza Vaccine (#1) 2025 07/15/2024, 2018 Diabetes: [...] Completed 03/21/2021 Hepatitis C Screening Completed 03/21/2021 Pneumococcal Vaccine: Pediatrics (0 to 5 Years) [...] 2 diabetes mellitus with hyperlipidemia (CMS/HCC) (CMS/HCC) LeannaZZ HISTORICAL HEPATITIS C AB W/REFL TO HCV RNA, QN, PCR Routine 03/21/2021 9:44 AM EDT HIV 1/2 ANTIGEN/ANTIBODY, FOURTH GENERATION W/RFL Routine 03/21/2021 9:44 AM EDT from Last 3 Months or Most Recently Relevant to Health Maintenance Results * (ABNORMAL) POCT HGB A1C (02/10/2025 11:24 AM EDT) Hemoglobin A1C 8.4(A) 4.0 - 5.7 % QC Media Lot # [id number] Lot# Expiration Date ,[id number] Blood 02/10/2025 11:2 4 AM EDT [facility] [place]ARE [place] ENTER/EDIT OR DERABLES Final Result * (ABNORMAL) Lipid Panel with Reflex to Direct LDL (11/18/2024 9:40 AM EDT) Triglycerides 288(H) <150 mg/dL [facility] Comment:Desirable Triglyceri de: less than 150 mg/dLBorderline High Triglyceride 150-199 mg/dLHigh Triglyceride: 200-499 mg/dLVery High Triglyceride: greater than or equal to 5OO mg/dL Cholesterol 103 <200 mg/dL [facility] Comment:Desirable Cholestero l: less than 200 mg/dLBorderline High Cholesterol: 200-239 mg/dLHigh Cholesterol: greater than 239 mg/dL LDL Cholesterol Calculated 20 <100 mg/dL [facility] Comment:Desirable LDL: less than 100 mg/dLNear Optimal/Above Optimal LDL: 110- 129 mg/dLBorderline High LDL: 130-159 mg/dLHigh LDL: 160-189 mg/dLVery High LDL: greater than or equal to 190 mg/dL HDL Cholesterol 26(L) >40 mg/dL [facility] Comment:Desirable HDL: great er than 40 mg/dL Note: This HDL assay may give artificially low results in patients with liver disease. 11/18/2024 9:40 AM EDT 11/18/2024 9:40 AM EDT us [facility] External Data Provider LAB BLOOD ORDERAB LES Final Result Performing Organization Address City/State/[facility] Co de Phone Number [facility] [address] [place] [phone] * Albumin, Random Urine W/Creatinine (12/29/2023 9:12 AM EDT) Creatinine, Urine 448.59 mg/dL [facility] Microalbumin Urine 91.0 mg/L [facility] Microalbum Creatinine Ratio Ur 20.2 <30 ug/mg cr [facility] Comment:Albumin/Creatinine R atio Reference Ranges: Normal: < 30 ug/mg creatinine Microalbuminuria: 30 - 300 ug/mg creatinineClinical Albuminuria: > 300 ug/mg creatinine Urine 12/29/2023 9:12 AM EDT 12/29/2023 10:43 AM EDT [facility] LAB URINE ORDERABLES Final Resul t [facility] [address] [place] [address] [phone] * HEPATITIS C AB W/REFL TO HCV RNA, QN, PCR (03/21/2021 9:44 AM EDT) HEPATITIS C ANTIBODY NON-REACT DAWN NON-REACT DAWN [facility] INDEX 0.08 <1.00 [facility] Comment: HCV antibody was non-reactive. There is no laboratory evidence of HCV infection. In most cases, no further action is required. However, if recent HCV exposure is suspected, a test for HCV RNA (test code 66999) is suggested. For additional information please refer to http://FanTree.SensibleSelf/faq/OHS65f1 (This link is being provided for informational/ educational purposes only.) 03/21/2021 9:44 AM EDT us Gloria Cruz ANP HISTORICAL/NON ORDERABLE LABS Fi nal Result [facility] [address] * HIV 1/2 ANTIGEN/ANTIBODY,FOURTH GENERATION W/RFL (03/21/2021 9:44 AM EDT) HIV-1/2 ANTIGEN AND ANTIBODIES, 4TH GENERATION W/ REFLEX NON-REACT DAWN NON-REACT DAWN [facility] Comment: HIV-1 antigen [...] purpose. For additional information please refer to http://FanTree.SensibleSelf/faq/EDS769 (This link is being provided for informational/ educational purposes only.) The performance of this assay has not been clinically validated in patients less than 2 years old. 03/21/2021 9:44 AM EDT Gloria RUSS LAB BLOOD ORDERABLES Final Resul t [facility] [address] from Last 3 Months or Most Recently Relevant to Health Maintenance Insurance [employer] Care Teams Library Media Assistant Relationship Specialty Start Date End Date Gloria Cruz ANP [address] [place], [place] PCP - General Family Medicine 02/11/21 George Hays FNP [address] [place], [place] Nurse Practitioner Family Medicine 05/25/23 Caio Briceño, PharmD [address] [place] [phone] Pharmacist Internal Medicine 02/01/24
--- OUTSIDE RECORDS SUMMARY | 2025-05-19 12:18 | XMS_ITS | Encounter Summary ---
Author Organization [employer] Address [address] [place] [address] 7 [place] [address] Care Team Providers Care Betting Clerks Name Role Phone Gloria Cruz Primary Care Provider [phone] George Hays COACH MECHANIC Unavailable Unavailable Caio Briceño PharmD Unavailable [phone] Reason for Visit * Reason Onset Date Comments Med Refill 07/30/2022 Encounter Details Date Type Department Care Team (Late st Contact Info) Description 07/30/2022 Telephone [facility] MEDICINE [address] [place] [address] Gloria Cruz ANP [address] [place] [address] Med Refill Social History Tobacco Use Types [...] 11:24 AM EST Medication was sent to [facility] on 07/24/22. Qty: 60 with 2 refills. * Telephone Encounter - Concepcion Cronin - 07/30/2022 10:30 AM EST Tc from pt requesting med refill for medication allopurinol (Zyloprim) 100 MG tablet. documented in this encounter Plan of Treatment Upcoming Encounters Date Type Department Care Team (Late st Contact Info) Description 07/07/2025 9:30 AM EST Office Visit [facility] MEDICINE [address] [place] [address] Malcolm Waters MD [address] [place], [place] documented as of this encounter Visit Diagnoses Not on filedocumented in this encounter Care Teams Betting Clerks Relationship Specialty Start Date End Date Gloria Cruz ANP [address] [place] [address] PCP - General Family Medicine 02/11/21 George Hays FNP [address] [place] [address] Nurse Practitioner Family Medicine 05/25/23 Caio Briceño, BaljinderD [address] [place] [address] [phone] Pharmacist Internal Medicine 02/01/24 documented as of this encounter
--- OUTSIDE RECORDS SUMMARY | 2025-05-19 12:18 | XMS_ITS | Encounter Summary ---
Author Organization [employer] Address 75 [facility] 7t [place] [address] Care Team Providers Care Rural Mail Carrier Name Role Phone Gloria Cruz Primary Care Provider [phone] George Hays GASOLINE LOCOMOTIVE CRANE OPERATOR Unavailable Unavailable Caio Briceño PharmD Unavailable [phone] Encounter Details Date Type Department Care Team (Late st Contact Info) Description 01/03/2025 Refill [facility] [address] [place], [place] [phone] Gloria Cruz ANP [address] [place] [address] Essential hypertension; Hyperlipidemia associated with type 2 [...] AM EST Office Visit [facility] [address] [place] [address] Malcolm Waters MD [address] [place] [address] documented as of this encounter Goals Goal [...] documented as of this encounter Care Teams Rural Mail Carrier Relationship Specialty Start Date End Date Gloria Cruz ANP [address] [place] [address] PCP - General Family Medicine 02/11/21 George Hays FNP [address] [place] [address] Nurse Practitioner Family Medicine 05/25/23 Caio Briceño, Sandy [address] [place] [phone] Pharmacist Internal Medicine 02/01/24 documented as of this encounter
--- OUTSIDE RECORDS SUMMARY | 2025-05-19 12:18 | XMS_ITS | Encounter Summary ---
Author Organization [employer] Address [address] [facility] [address] [place] [address] Care Team Providers Care Stock Driver Name Role Phone Gloria Cruz Primary Care Provider [phone] George Hays Unavailable Unavailable Caio Briceño PharmD Unavailable [phone] Reason for Visit * Reason Comments Med Refill Encounter Details Date Type Department Care Team ([facility] st Contact Info) Description 10/14/2023 Refill [facility] [address] [place] [address] Gloria Cruz ANP [address] [place] [address] Social History Tobacco Use Types Packs/Day Years [...] Description 07/07/2025 9:30 AM EST Office Visit [facility] [address] [place] [phone] Malcolm Waters MD [address] [place] [address] documented as of this encounter Visit Diagnoses Not on filedocumented in this encounter Additional Health Concerns Assessment Noted Time PHQ-9 Depression Total Score: 0 09/29/19 9:20 AM EDT documented as of this encounter Care Teams Stock Driver Relationship Specialty Start Date End Date Gloria Cruz ANP [address] [place] [phone] PCP - General Family Medicine 02/11/21 George Hays FNP [address] [place] [phone] Nurse Practitioner Family Medicine 05/25/23 Caio Briceño, Sandy [address] [place] [phone] Pharmacist Internal Medicine 02/01/24 documented as of this encounter
[2025-05-19 12:45] LABS: Alanine Aminotransferase 211 U/L (0-40); Albumin Level 4.4 g/dL (3.5-5.0); Alkaline Phosphatase 94 U/L (39-117); Aspartate Amino Transferase 105 U/L (5-37); Total Protein 8.2 g/dL (6.5-8.0)
[2025-05-20 08:26] LABS: HBc Num1 0.07 S/CO (0.00-0.79); HBsAGNum1 0.47 S/CO (0.00-0.99); HIV Num 1 0.05 S/CO (0.00-0.99); Hepatitis A Antibody IgM 0.18 Index (0-0.79); Hepatitis B Surface Antigen Negative (Negative); ~HepC Num1 0.12 S/CO (0.00-0.79); ~Hepatitis A Antibody IgM Nonreactive (Nonreactive); ~Hepatitis B Surface Antibody REACTIVE (Nonreactive); ~Hepatitis C Antibody Nonreactive (Nonreactive)
[2025-05-22 13:59] LABS: Anti Nuclear Antibody Screen NEGATIVE (NEGATIVE)
[2025-05-30 07:59] LABS: Mitochondrial Ab Titer 1:20 titer (<1:20)
== END 2025-05-19 11:28 | disposition home or self-care (01) ==
LOC: HO.LAB 11:27
PROVIDERS: PCP Nurse Practitioner Primary Care; Visit Provider Nurse Practitioner
DX: Z01.84 Encounter for antibody response examination (principal); Z11.59 Encounter for screening for other viral diseases; Z11.4 Encounter for screening for human immunodeficiency virus [HIV]; R74.01 Elevation of levels of liver transaminase levels
CPT/HCPCS: 36415; 80076; 80321; 81596; 82105; 86015; 86038; 86381; 86704; 86706; 86709; 86803; 87340; 87389

== ENCOUNTER 2025-06-02 15:53 | Outpatient (AMB) | payer MEDICAID, SELFPAY ==
--- NOTE | 2025-06-02 16:03 | A.OFFVIS_ITS ---
Vital Signs 06/02/25 16:04 Height 5 ft 11 in Weight 305 lb 1.916 oz BMI 42.6 BP 128/68 Blood Pressure Location Rt brachial Position Sitting Pulse 71 Intake Visit Reasons: Follow up results. Intake Note: Feliciano returns to in office follow up today for lab results. CC: Denies having any GI symptoms or concerns. Saw Maker Required: No Allergies No Known Allergies Allergy (Verified 06/02/25 16:10) HPI HPI Follow up results.: Details: Assessment & Plan (1) Transaminitis: Comment: BASELINE LABS 11/18/2024 Plt Count 245 Estimated GFR > 60 Hemoglobin A1c % 7.6 H Ferritin 531 H Total Bilirubin 1.0 AST 137 H ALT 179 H Alkaline Phosphatase 93 CURRENT LABS ULTRASOUND OF THE ABDOMEN 12/16/2024 ULTRASOUND OF THE ABDOMEN 12/16/2024 Findings: Pancreas is predominantly obscured. The aorta and inferior vena cava are normal caliber. Increased hepatic parenchymal echotexture. The liver is enlarged measuring 21.1 cm in greatest dimension. There is no intrahepatic bile duct dilatation. The common duct is for mm in diameter. The gallbladder is normal. There is no sonographic Duong sign. The main portal vein is antegrade. The right kidney is 12.3 cm in length. The left kidney is 11.8 cm in length. The spleen is normal. No ascites. IMPRESSION: 1. Hepatic steatosis and hepatomegaly. Normal splenic size. Code(s): R74.01 - Elevation of levels of liver transaminase levels Category: Medical (2) Morbid obesity with BMI of 40.0-44.9, adult: Code(s): E66.01 - Morbid (severe) obesity due to excess calories; Z68.41 - Body mass index [BMI] 40.0-44.9, adult Category: Medical (3) Diabetes: Code(s): E11.9 - Type 2 diabetes mellitus without complications Category: Medical Plan - The patient is a 39-year-old male presenting with concerns about liver function test results. - Liver function tests prompted this evaluation following the details provided by his primary care doctor. He currently has no signs or symptoms of liver disease. He is morbidly obese and diabetic. He is currently on Mounjaro which unfortunately has not promoting weight loss. - Ultrasound findings demonstrated the presence of fatty liver and slight liver enlargement. - The patient reports significant episodic weekend alcohol consumption (around 10 shots and 15 beers PER DAY). - Family history includes relatives (cousin and aunt) with fatty liver. - There is controlled blood sugar status. - Alcohol was previously ceased for around a year, suggesting an ability to refrain from drinking. - No personal or proximal family history of liver disease is identified beyond noted familial instances. - The patient denies intravenous drug use. I educated he and his family member accompanying him that my role will be to do additional testing to determine if there is any other reversible pathology contributing to his extremely elevated transaminases. This would include infectious or autoimmune as well as some other metabolic issues. I am sending him for additional blood testing. I also spent time educating him that the most likely diagnosis is fatty liver given his total metabolic profile morbid obesity he likely needs to have complete alcohol cessation to best take care of his future liver health. I explained that I am not inferring that he is alcohol ic, but I am saying that people who have fatty liver generally can not tolerate any regular alcohol intake without progressing to liver cancer or cirrhosis. Return office visit in 6 weeks to review the lab results Orders: Orders Phosphatidylethanol, Blood Today R74.01 - Elevation of levels of liver transaminase levels LABS: Alpha Fetoprotein Today R74.01 - Elevation of levels of liver transaminase levels GAGE Reflex Titer and Pattern Today R74.01 - Elevation of levels of liver transaminase levels Liver Fibrosis Pnl Today R74.01 - Elevation of levels of liver transaminase levels Liver Panel Today R74.01 - Elevation of levels of liver transaminase levels Hepatitis A,B,C Profile Today R74.01 - Elevation of levels of liver transaminase levels HIV Ab/Ag Today R74.01 - Elevation of levels of liver transaminase levels Mitochondrial Antibody Today R74.01 - Elevation of levels of liver transaminase levels Smooth Muscle Antibody Today R74.01 - Elevation of levels of liver transaminase levels Phosphatidylethanol, Blood Today R74.01 - Elevation of levels of liver transaminase levels Laboratory Tests 11/18/24 05/19/25 09:40 11:36 Ferritin 531 H Total Bilirubin 1.2 H Direct Bilirubin 0.4 AST 105 H ALT 211 H Alkaline Phosphatase 94 Mitochondrial AB Titer 1:20 H Alpha Fetoprotein 3.3 GAGE Screen NEGATIVE Anti-Mitochondrial Ab POSITIVE A Anti-Smooth Muscle Ab <20 Hepatitis A IgM Ab Nonreactive Hep Bs Antigen Negative Hep Bs Antibody REACTIVE Hep B Core Total Ab Nonreactive Hepatitis C Ab (EIA) Nonreactive HIV 1&2 Ab/P24 Ag 4thGn Nonreactive TODAY'S VISIT [facility] Medical History Obesity Shortness of breath Diabetes HTN (hypertension) Surgical History Hx of appendectomy Family History Father No problems noted. Mother Sleep apnea History of thyroid disease Social History Alcohol intake: never Patient Tobacco Use Status: Current everyday Tobacco user Cigarette Packs Per Day: 0.5 Review of Systems Const Denies fatigue, Denies fever(s), Denies night sweats, Denies poor appetite and Denies weight loss Eyes Details: glasses Reports requires corrective lenses ENT Reports Normal hearing present, Denies dental pain, Denies dysphagia, Denies hearing loss, Denies mouth pain, Denies odynophagia, Denies throat swelling, Denies tongue swelling and Reports other (Dentition adequate) Card Reports no additional complaints Resp Reports no additional complaints GI Details: Denies abdominal pain, Denies melena, Denies bloating, Denies hematochezia, Denies constipation, Denies GI cramping, Denies dysphagia, Denies excessive flatus, Denies early satiety, Denies heartburn, Denies diarrhea, Denies nausea, Denies odynophagia, Denies vomiting and Denies hematemesis Skin/Breast Denies pruritus, Denies lesions, Denies rash and Denies jaundice Neuro Reports Normal hearing present and Denies Abnormal speech present Endo Denies fatigue Aller/Immun Denies throat swelling and Denies tongue swelling Physical Exam Vital Signs: Last Vital Signs Pulse 71 06/02/25 16:04 BP 128/68 06/02/25 16:04 BMI result Body Mass Index 42.6 Const General: cooperative, no acute distress, well developed and well groomed Nutritional Appearance: well nourished and obese morbidly obese Orientation/consciousness: oriented to person, oriented to place and oriented to time Limitations: No language barrier and other limitations HEENT Head: Yes normocephalic and Yes atraumatic Eyes General: appearance normal, both eyes and all related structures Pupils: Equal, round and reactive pupils present Neck Neck: Yes normal visual inspection and Yes no lymphadenopathy Thyroid: Thyroid normal Resp Effort & Inspection: normal respiratory effort and able to speak in complete sentences Auscultation: clear to auscultation bilaterally Cardio Rate: regular rate Rhythm: regular rhythm Heart sounds: Normal, physiologic split S2 sound present Peripheral pulses: radial pulses present and posterior tibial pulses present GI Inspection: No distended, Yes Abdominal panniculus present and Yes obesity Palpation (GI): Soft to palpation, nontender, no guarding, not rigid and Hepatosplenomegaly present Percussion: Yes normal to percussion Auscultation: normal bowel sounds Rectal Exam - Male: Yes deferred Skin General skin exam: no rashes or lesions noted, turgor normal, skin not dry, no jaundice, No spider nevi and no striae Rashes: no rashes Nails: normal Neuro General: oriented to person, oriented to place and oriented to time Cranial nerves: Yes Equal, round and reactive pupils present and Yes Normal hearing present Speech: No Abnormal speech present Extrem General: Yes normal to inspection, No clubbing, No cyanosis and No edema Psych Appearance: grossly normal and well kempt Mental Status: other Speech and movement: Normal speech and movement present Affect: normal affect Attitude: cooperative Thought process: not confabulating and Impoverished thought process present Thought content: Normal thought content present Insight: Poor insight present (Psych) Judgement: Poor judgement present (Psych) Assessment & Plan Assessment & Plan (1) Transaminitis: Comment: BASELINE LABS 11/18/2024 Plt Count 245 Estimated GFR > 60 Hemoglobin A1c % 7.6 H Ferritin 531 H Total Bilirubin 1.0 AST 137 H ALT 179 H Alkaline Phosphatase 93 11/18/2510/21/25 Ferritin 531 H Total Bilirubin 1.2 H Direct Bilirubin 0.4 AST 105 H ALT 211 H Alkaline Phosphatase 94 Mitochondrial AB Titer 1:20 H Alpha Fetoprotein 3.3 GAGE Screen NEGATIVE Anti-Mitochondrial Ab POSITIVE A Anti-Smooth Muscle Ab <20 Hepatitis A IgM Ab Nonreactive Hep Bs Antigen Negative Hep Bs Antibody REACTIVE Hep B Core Total Ab Nonreactive Hepatitis C Ab (EIA) Nonreactive HIV 1&2 Ab/P24 Ag 4thGn Nonreactive CURRENT LABS ULTRASOUND OF THE ABDOMEN 12/16/2024 Findings: Pancreas is predominantly obscured. The aorta and inferior vena cava are normal caliber. Increased hepatic parenchymal echotexture. The liver is enlarged measuring 21.1 cm in greatest dimension. There is no intrahepatic bile duct dilatation. The common duct is for mm in diameter. The gallbladder is normal. There is no sonographic Duong sign. The main portal vein is antegrade. The right kidney is 12.3 cm in length. The left kidney is 11.8 cm in length. The spleen is normal. No ascites. IMPRESSION: 1. Hepatic steatosis and hepatomegaly. Normal splenic size. Code(s): R74.01 - Elevation of levels of liver transaminase levels Category: Medical (2) GERD (gastroesophageal reflux disease): Code(s): K21.9 - Gastro-esophageal reflux disease without esophagitis Category: Medical (3) Diabetes: Code(s): E11.9 - Type 2 diabetes mellitus without complications Category: Medical (4) Elevated ferritin: Code(s): R79.89 - Other specified abnormal findings of blood chemistry Category: Medical Plan we review the results and although the pes in the liver fibrosis panels are not back, we do have some interesting results. He has an elevated antimitochondrial antibody which usually would point towards PBC, but he is a male, and he does not have an elevated alk-phos. Now this does not automatically exclude PBC but I think we should get a liver biopsy to help clarify the diagnosis. I described the procedure to he and his mother and they are agreeable. I am also going to add a hemochromatosis screen since he has not elevated ferritin along with some more unusual parameters such as a ceruloplasmin and alpha-1 antitrypsin test. I let them know that they will be called to schedule the ultrasound guided liver biopsy and I have already ordered a PT INR to facilitate this procedure. Return office visit in 3 months Orders: Orders Ceruloplasmin Today R74.01 - Elevation of levels of liver transaminase levels, R79.89 - Other specified abnormal findings of blood chemistry Prothrombin Time INR Today R74.01 - Elevation of levels of liver transaminase levels, R79.89 - Other specified abnormal findings of blood chemistry DNA Analysis Hemochromatosis Today R74.01 - Elevation of levels of liver transaminase levels, R79.89 - Other specified abnormal findings of blood chemistry Alpha 1 Anti-trypsin Today R74.01 - Elevation of levels of liver transaminase levels Coding Level of Care Code Est Pt Level 3 (14395) Diagnoses Transaminitis R74.01 GERD (gastroesophageal reflux disease) K21.9 Diabetes E11.9 Elevated ferritin R79.89
[2025-06-02 16:04] VITALS: BP 128/68; PULSE 71; BMI 42.6
--- OUTSIDE RECORDS SUMMARY | 2025-06-02 19:43 | XMS_ITS | Encounter Summary ---
Author Organization [employer] Address [address] [place] [address] [address] [place] [address] Care Team Providers Care Film Flat Inspector Name Role Phone Gloria Cruz PETRONA Primary Care Provider George Hays CHANNEL PROCESS PLANT OPERATOR Unavailable Unavailable Caio Briceño PharmD Unavailable [phone] Encounter Details Date Type Department Care Team (Late st Contact Info) Description 07/22/2022 Orders Only [facility] [address] [place] [id number] Silvia Keyes LPN Social History Tobacco Use [...] Care Team (Late st Contact Info) Description 06/09/2025 2:30 PM EST Medication Management [address] [address] Caio Briceño, PharmD [address] [place] [phone] 07/07/2025 9:30 AM EST Office Visit [address] [address] Malcolm Waters MD [address] [place] [address] [phone] documented as of this encounter Visit Diagnoses Not on filedocumented in this encounter Care Teams Film Flat Inspector Relationship Specialty Start Date End Date Gloria Cruz ANP [address] [place] [address] PCP - General Family Medicine 02/11/21 George Hays FNP [address] [place] [phone] Nurse Practitioner Family Medicine 05/25/23 Caio Briceño, Sandy [address] [place] [phone] Pharmacist Internal Medicine 02/01/24 documented as of this encounter
--- OUTSIDE RECORDS SUMMARY | 2025-06-02 19:43 | XMS_ITS | Clinical Summary ---
Author Organization [employer] Address [address] [facility] 7t [place] [address] Care Team Providers Care Group Social Worker Name Role Phone Gloria Cruz PETRONA Primary Care Provider [phone] George Hays BOILER SETTER Unavailable Unavailable Caio Briceño PharmD Unavailable [phone] Allergies Active Allergy Reactions Criticality Noted Date [...] 1 kit 023 Active Continuous Blood Gluc Patent Agent (LocalOnStyle Baljinder 2 [place]) device Scan sensor every 8 hours 1 [...] 180 tablet 2 025 Active TechLite Pen [place] 32G X 4 MM misc USE DIRECTED EVERY DAY 100 each 3 025 Active Pentips Generic Pen [place] 32G X 4 MM misc USE DIRECTED EVERY DAY 100 each 2 025 2024 Discontinued Active Problems Problem [...] Smoking 06/30/2023 Overview (06/30/2023): Quit 06/29/23 from 1/2 PPD, using nicotine vape AARON (obstructive sleep [...] below 88% for 20 min. Rx'd APAP [id number]. Mood disorder 02/02/2023 Assessment & Plan (09/29/2023 [...] any questions or concerns, call [facility]. He will continue with therapist [...] being easily annoyed/irritable. He denies SI/HI. Feliciano does reports a history of self harm and [...] organization. Date Type Department Care Team Description 05/22/2025 Results Follow-Up [facility] MEDICINE [address] [place] [address] Gloria Cruz ANP Hepatic Function Panel, Hepatitis Panel, General, HIV-1/2 Antigen and Antibodies, Fourth Generation, with Reflexes, GAGE Screen,IFA, with Reflex to Titer and Pattern 05/19/2025 Orders Only GENERIC EXTERNAL DATA DEPARTMENT Provider, Generic External Data 05/10/2025 Refill [facility] MEDICINE [address] [place] [address] Gloria Cruz ANP 04/20/2025 Refill [facility] MEDICINE [address] [place] [address] Gloria Cruz ANP Idiopathic chronic gout without tophus, unspecified site 04/19/2025 Telephone [facility] MEDICINE [address] [place] [address] Gloria Cruz ANP 04/03/2025 Refill [facility] MEDICINE [address] [place] [address] Gloria Cruz ANP Alcohol consumption binge drinking; Essential hypertension 04/03/2025 Refill [facility] MEDICINE [address] [place] [address] Brad Burnett MD Alcohol consumption binge drinking; [...] is your housing situation today? I have frankothalia murdock 10/28/[address] you [...] Description 06/09/2025 2:30 PM EST Medication Management [facility] MEDICINE [address] [place] [phone] Caio Briceño, PharmD [address] [place] [phone] 07/07/2025 9:30 AM EST Office Visit [facility] MEDICINE [address] [place] [phone] Malcolm Waters MD [address] [place] [phone] Health Maintenance Due Date Last Done Comments Eye Exam 1996 Family Planning (PISQ) 2001 HPV Vaccines (1 - Male 3-dose series) 2001 Hepatitis A Vaccines (1 of 2 - Risk 2-dose series) 2005 Diabetes: Urine Protein Screening 12/28/2024 12/29/2023, 12/29/2023, 03/21/2021, Additional history exists Hepatitis B Vaccines (3 of 3 - 19+ 3-dose series) 01/12/2025 08/12/2024, 07/15/2024 COVID-19 Vaccine ( season) 2025 07/15/2024, 08/12/2021, 11/19/2020, Additional history [...] older (1 - 1-dose 75+ series) 2061 Pneumococcal Vaccine: Pediatrics (0 to 5 Years) and At-Risk Patients (6 to 49) Years Completed 07/15/2024 HIV Screening Completed 05/19/2025, 03/21/2021 Hepatitis C Screening Completed 05/19/2025, 021 HIB Vaccines Aged Out No longer eligi [...] 124/78(2024 11:20 AM EDT) No Caio Briceño, Sandy Hemoglobin A1c < 7 Result Component 8.4( 11:24 AM EDT) No Caio Briceño, Sandy Help patients manage their type 2 diabetes Care Plan Help patients manage their type 2 diabetes No Gloria Cruz ANP Weekly blood pressure task Care Plan Weekly blood pressure task No Gloria Cruz ANP Help patients manage their type 2 diabetes Care Plan Help patients manage their type 2 diabetes No Gloria Cruz ANP Patient has chronic kidney disease Care Plan Patient has chronic kidney disease No Gloria Cruz ANP Procedures Procedure Name Priority Date/Time Associated Diagnosis Comments MITOCHONDRIAL ANTIBODY WITH REFLEX TO TITER Routine 05/19/2025 11:36 AM EST ALPHA FETOPROTEIN, TUMOR MARKER Routine 05/19/2025 11:36 AM EST ACTIN (SMOOTH MUSCLE) ANTIBODY (IGG) Routine 05/19/2025 11:36 AM EST GAGE SCREEN, IFA, W/REFL TITER AND PATTERN Routine 05/19/2025 11:36 AM EST HIV 1/2 ANTIGEN/ANTIBODY, FOURTH GENERATION W/RFL Routine 05/19/2025 11:36 AM EST HEPATITIS PANEL, GENERAL Routine 05/19/2025 11:36 AM EST HEPATIC FUNCTION PANEL Routine 05/19/2025 11:36 AM EST POCT GLYCATED HEMOGLOBIN, TOTAL Routine 02/10/2025 11:24 AM EDT Type 2 diabetes mellitus with hyperlipidemia (CMS/HCC) (CMS/HCC) LIPID PANEL WITH REFLEX TO DIRECT LDL Routine 11/18/2024 9:40 AM EDT ALBUMIN, RANDOM URINE W/CREATININE Routine 12/29/2023 9:12 AM EDT Type 2 diabetes mellitus with hyperlipidemia (CMS/HCC) (CMS/HCC) from Last 3 Months or Most Recently Relevant to Health Maintenance Results * Hepatitis Panel, General (05/19/2025 11:36 AM EST) Hepatitis A IgM Nonreactive Nonreactive [facility] Comment:IgM antibodies to DHILLON V not detected; does not exclude earlyacute or recovered HAV infection. ~Hepatitis B Surface Antibody REACTIVE Nonreactive [facility] Comment:REACTIVE: > 11.99 mI U/mL Hepatitis B Core Antibody Nonreactive Nonreactive [facility] Hepatitis C Antibody Nonreactive Nonreactive [facility] Comment:Antibodies to HCV no t detected; does not exclude early acuteHCV infection. Hepatitis B Surface Ag Negative Negative [facility] 05/19/2025 11:3 6 AM EST 05/19/2025 11:36 AM EST us Generic External Data Provider LAB BLOOD ORDERAB LES Final Result [facility] [address] [place] [phone] * Actin (Smooth Muscle) Antibody (IgG) (05/19/2025 11:36 AM EST) Smooth Muscle Antibody <20 <20 U [facility] Comment:Reference Range: <20 U: Negative>or=20 U: PositiveAntibodies recognizing actin are the main componentof smooth muscle antibodies associated with auto- immune liver disease. Actin antibodies are found inapproximately 75% of patients with autoimmunehepatitis (AIH) type 1, approximately 65% of patientswith autoimmune cholangitis, approximately 30% ofpatients with primary biliary cirrhosis andapproximately 2% of healthy controls. High values areclosely correlated with AIH type 1.THIS TEST WAS PERFORMED AT:[facility]/NANCY [id number] [place] [id number] SHAHID MD,PHD 05/19/2025 11:3 6 AM EST 05/19/2025 11:36 AM EST Generic External Data Provider LAB BLOOD ORDERAB LES Final Result Performing Organization Address [facility] Co de Phone Number [facility] [address] [place] [address] [phone] * (ABNORMAL) Mitochondrial Antibody with Reflex to Titer (05/19/2025 11:36 AM EST) Mitochondrial Antibodies POSITIVE (A) NEGATIVE [facility] Comment:The immunofluorescen ce assay (IFA) procedure revealsthe possible presence of another autoantibody.Consider requesting order code [id number], Smooth MuscleAntibody with Reflex to Titer, if clinically indicated.THIS TEST WAS PERFORMED AT:[facility] [address] [id number] SCOTT MD Mitochondrial Ab Titer 1:20(A) <1:20 titer [facility] Comment:THIS TEST WAS PERFOR MED AT:[facility] [address] [id number] SCOTT MD 05/19/2025 11:3 6 AM EST 05/19/2025 11:36 AM EST [employer] External Data Provider LAB BLOOD ORDERAB LES Final Result Performing Organization Address [facility] Co de Phone Number [facility] [address] [place] [phone] * HIV-1/2 Antigen and Antibodies, Fourth Generation, with Reflexes (05/19/2025 11:36 AM EST) HIV AB/AG Nonreactive Nonreactive [facility] Comment:HIV-1 p24 Ag and/or HIV-1/HIV-2 Ab not detected.A test result that is nonreactive does not exclude thepossibility of exposure to or infection with HIV-1 and/orHIV-2. Nonreactive results in this assay for individualswith prior exposure to HIV-1 and/or HIV-2 may be due toantigen and antibody levels that are below the limit ofdetection of this assay.The Mash[employer] HIV Ag/Ab Combo assay result andsupplemental assay results should be interpreted inconjunction with the patient's clinical presentation,history and other laboratory results. If the results areinconsistent with clinical evidence, additional testing issuggested to confirm the result. 05/19/2025 11:3 6 AM EST 05/19/2025 11:36 AM EST us Generic External Data Provider LAB BLOOD ORDERAB LES Final Result [facility] [address] [place] [phone] * GAGE Screen,IFA, with Reflex to Titer and Pattern (05/19/2025 11:36 AM EST) Pathologist [facility] Anti Nuclear Antibody Screen NEGATIVE NEGATIVE [facility] Comment:GAGE IFA is a first l ine screen for detecting thepresence of up to approximately 150 autoantibodies invarious autoimmune diseases. A negative GAGE IFA resultsuggests an GAGE-associated autoimmune disease is notpresent at this time, but is not definitive. If thereis high clinical suspicion for Sjogren's syndrome,testing for anti-SS-A/Ro antibody should be considered.Anti-Julia-1 antibody should be considered for clinicallysuspected inflammatory myopathies.AC-0: NegativeInternational Consensus on GAGE Patterns(https://doi.org/10.1515/pvpr-5924-4455)For additional information, please refer tohttp://education.[employer]/faq/HAM716(This link is being provided for informational/educational purposes only.)THIS TEST WAS PERFORMED AT:[employer] [place] [id number] SCOTT MD GAGE Titer TNP [facility] GAGE Pattern TNP [facility] GAGE Titer 2 TNP [facility] GAGE Pattern 2 TNP [facility] GAGE TITER 3 TNP [facility] GAGE PATTERN 3 TNP [facility] 05/19/2025 11:3 6 AM EST 05/19/2025 11:36 AM EST Generic External Data Provider LAB BLOOD ORDERAB LES Final Result Performing Organization Address [facility] Co de Phone Number [facility] [address] [place] [phone] * (ABNORMAL) Hepatic Function Panel (05/19/2025 11:36 AM EST) [facility] Bilirubin, Total 1.2(H) 0.0 - 1.0 mg/dL [facility] Bilirubin, Direct 0.4 0.0 - 0.5 mg/dL [facility] Aspartate Amino Transferase 105(H) 5 - 37 U/L [facility] Alanine Aminotransferase 211(H) 0 - 40 U/L [facility] Total Protein 8.2(H) 6.5 - 8.0 g/dL [facility] Albumin Level 4.4 3.5 - 5.0 g/dL [facility] Alkaline Phosphatase 94 39 - 117 U/L [facility] 05/19/2025 11:3 6 AM EST 05/19/2025 11:36 AM EST Generic External Data Provider LAB BLOOD ORDERAB LES Final Result Performing Organization Address [facility] de Phone Number [facility] [address] [place] [phone] * (ABNORMAL) POCT HGB A1C (02/10/2025 11:24 AM EDT) Hemoglobin A1C 8.4(A) 4.0 - 5.7 % QC Media Lot # [id number] Lot# Expiration Date ,745,[id number] Blood 02/10/2025 11:2 4 AM EDT us Gloria [facility] POINT OF CARE TEST ENTER/EDIT OR DERABLES Final Result * (ABNORMAL) Lipid Panel with Reflex to Direct LDL (11/18/2024 9:40 AM EDT) Triglycerides 288(H) <150 mg/dL [facility] Comment:Desirable Triglyceri de: less than 150 mg/dLBorderline High Triglyceride 150-199 mg/dLHigh Triglyceride: 200-499 mg/dLVery High Triglyceride: greater than or equal to 5OO mg/dL Cholesterol 103 <200 mg/dL [facility] Comment:Desirable Cholestero l: less than 200 mg/dLBorderline High Cholesterol: 200-239 mg/dLHigh Cholesterol: greater than 239 mg/dL LDL Cholesterol Calculated 20 <100 mg/dL [facility] Comment:Desirable LDL: less than 100 mg/dLNear Optimal/Above Optimal LDL: 110- 129 mg/dLBorderline High LDL: 130-159 mg/dLHigh LDL: 160-189 mg/dLVery High LDL: greater than or equal to 190 mg/dL HDL Cholesterol 26(L) >40 mg/dL [facility] Comment:Desirable HDL: great er than 40 mg/dL Note: This HDL assay may give artificially low results in patients with liver disease. 11/18/2024 9:40 AM EDT 11/18/2024 9:40 AM EDT Generic External Data Provider LAB BLOOD ORDERAB LES Final Result [facility] [address] [place] [phone] * Albumin, Random Urine W/Creatinine (12/29/2023 9:12 AM EDT) Creatinine, Urine 448.59 mg/dL [facility] Microalbumin Urine 91.0 mg/L [facility] Microalbum Creatinine Ratio Ur 20.2 <30 ug/mg cr [facility] Comment:Albumin/Creatinine R atio Reference Ranges: Normal: < 30 ug/mg creatinine Microalbuminuria: 30 - 300 ug/mg creatinineClinical Albuminuria: > 300 ug/mg creatinine Urine 12/29/2023 9:12 AM EDT 12/29/2023 10:43 AM EDT us Gloria RUSS LAB URINE ORDERABLES Final Resul t [facility] [address] [place] [phone] from Last 3 Months or Most Recently Relevant to Health Maintenance Additional Health Concerns Active Problems Noted Date Diagnosed Date Help patients manage their type 2 diabetes 05/22 Weekly blood pressure task 05/22/2025 Help patients manage their type 2 diabetes 05/22 Patient has chronic kidney disease 05/22/2025 [place] [address] Care Teams Group Social Worker Relationship Specialty Start Date End Date Gloria Cruz ANP [address] [place] [address] PCP - General Family Medicine 02/11/21 George Hays FNP [address] [place], [place] Nurse Practitioner Family Medicine 05/25/23 Caio Briceño, BaljinderD [address] [place] [address] Pharmacist Internal Medicine 02/01/24
--- OUTSIDE RECORDS SUMMARY | 2025-06-02 19:43 | XMS_ITS | Encounter Summary ---
Author Organization [employer] Address [address] [place] [address] 7 [place] [address] Care Team Providers Care Pediatric Orthodontist Name Role Phone Gloria Cruz Primary Care Provider [phone] George Hays BUSINESS OBJECTS DEVELOPER Unavailable Unavailable Caio Briceño PharmD Unavailable Reason for Visit * Reason Onset Date Comments Med Refill 07/30/2022 Encounter Details Date Type Department Care Team (Late st Contact Info) Description 07/30/2022 Telephone [facility] MEDICINE [address] [place] [address] Gloria Cruz ANP [address] [place] [address] Med Refill Social History Tobacco Use Types [...] 11:24 AM EST Medication was sent to [facility] on 07/24/22. Qty: 60 with 2 refills. * Telephone Encounter - Concepcion Cronin - 07/30/2022 10:30 AM EST Tc from pt requesting med refill for medication allopurinol (Zyloprim) 100 MG tablet. documented in this encounter Plan of Treatment Upcoming Encounters Date Type Department Care Team (Late st Contact Info) Description 06/09/2025 2:30 PM EST Medication Management [address] [address] Caio Briceño, Sandy [address] [place] [phone] 07/07/2025 9:30 AM EST Office Visit [address] [address] Malcolm Waters MD [address] [place] [phone] documented as of this encounter Visit Diagnoses Not on filedocumented in this encounter Care Teams Pediatric Orthodontist Relationship Specialty Start Date End Date Gloria Cruz ANP [address] [place] [phone] PCP - General Family Medicine 02/11/21 George Hays FNP [address] [place] [address] Nurse Practitioner Family Medicine 05/25/23 Caio Briceño, PharmD [address] [place] [address] Pharmacist Internal Medicine 02/01/24 documented as of this encounter
--- OUTSIDE RECORDS SUMMARY | 2025-06-02 19:43 | XMS_ITS | Encounter Summary ---
Author Organization [employer] Address [address] [place] [address] 7 [place] [address] Care Team Providers Care Puller Machine Name Role Phone Gloria Cruz Primary Care Provider [phone] George Hays SPORTS NUTRITIONIST Unavailable Unavailable Caio Briceño PharmD Unavailable [phone] Reason for Visit * Reason Comments Med Refill Encounter Details Date Type Department Care Team ([facility] Contact Info) Description 10/24/2022 Refill [facility] MED[facility] [address] [place] [phone] Gloria Cruz ANP [address] [place] [address] Social History Tobacco Use Types Packs/Day Years [...] Upcoming Encounters Date Type Department Care Team ([facility] Contact Info) Description 06/09/2025 2:30 PM EST Medication Management [facility] [address] [place] [phone] Caio Briceño, PharmD [address] [place] [phone] 07/07/2025 9:30 AM EST Office Visit [facility] [address] [place] [address] Malcolm Waters MD [address] [place] [address] [phone] documented as of this encounter Visit Diagnoses Not on filedocumented in this encounter Care Teams Puller Machine Relationship Specialty Start Date End Date Gloria Cruz ANP [address] [place] [address] [phone] PCP - General Family Medicine 02/11/21 George Hays FNP [address] [place] [phone] Nurse Practitioner Family Medicine 05/25/23 Caio Briceño, PharmD [address] [place] [phone] Pharmacist Internal Medicine 02/01/24 documented as of this encounter
--- OUTSIDE RECORDS SUMMARY | 2025-06-02 19:43 | XMS_ITS | Encounter Summary ---
Author Organization [employer] Address [address] [facility] 7t [place] [address] Care Team Providers Care Integration Engineer Name Role Phone Gloria Cruz Primary Care Provider [phone] George Hays Unavailable Unavailable Caio Briceño PharmD Unavailable [phone] Reason for Visit * Reason Comments Med Refill Encounter Details Date Type Department Care Team ([facility] st Contact Info) Description 10/14/2023 Refill [facility] [address] [place] [address] Gloria Cruz ANP [address] [place] [address] Social History Tobacco Use Types Packs/Day Years [...] Description 06/09/2025 2:30 PM EST Medication Management [address] [address] Caio Briceño, BaljinderD [address] [place] [phone] 07/07/2025 9:30 AM EST Office Visit [address] [address] Malcolm Waters MD [address] [place] [phone] documented as of this encounter Visit Diagnoses Not on filedocumented in this encounter Additional Health Concerns Assessment Noted Time PHQ-9 Depression Total Score: 0 09/29/19 24 9:20 AM EDT documented as of this encounter Care Teams Integration Engineer Relationship Specialty Start Date End Date Gloria Cruz ANP [address] [place] [phone] PCP - General Family Medicine 02/11/21 George Hays FNP [address] [place] [address] Nurse Practitioner Family Medicine 05/25/23 Caio Briceño, PharmD [address] [place] [phone] Pharmacist Internal Medicine 02/01/24 documented as of this encounter
--- OUTSIDE RECORDS SUMMARY | 2025-06-02 19:43 | XMS_ITS | Encounter Summary ---
Author Organization [employer] Address [address] [place] [address] 7 [place] [address] Care Team Providers Care Movie Operator Name Role Phone Gloria Cruz PETRONA Primary Care Provider [phone] George Hays TRANS ROUTER Unavailable Unavailable Caio Briceño PharmD Unavailable [phone] Encounter Details Date Type Department Care Team (Late st Contact Info) Description 08/20/2022 Orders Only [facility] [address] [place] [address] Amanda Collins LPN Social History Tobacco Use [...] Description 06/09/2025 2:30 PM EST Medication Management [facility] [address] [place] [phone] Caio Briceño, PharmD [address] [place] [phone] 07/07/2025 9:30 AM EST Office Visit [facility] [address] [place] [address] Malcolm Waters MD [address] [place] [phone] documented as of this encounter Visit Diagnoses Not on filedocumented in this encounter Care Teams Movie Operator Relationship Specialty Start Date End Date Gloria Cruz ANP [address] [place] [phone] PCP - General Family Medicine 02/11/21 George Hays FNP [address] [place] [address] Nurse Practitioner Family Medicine 05/25/23 Caio Briceño, BaljinderD [address] [place] [phone] Pharmacist Internal Medicine 02/01/24 documented as of this encounter
--- OUTSIDE RECORDS SUMMARY | 2025-06-02 19:43 | XMS_ITS | Encounter Summary ---
Author Organization [employer] Address [address] [facility] 7t [place] [address] Care Team Providers Care Crate Repairer Name Role Phone Gloria Cruz Primary Care Provider [phone] George Hays AUDIO OPERATOR Unavailable Unavailable Caio Briceño PharmD Unavailable [phone] Encounter Details Date Type Department Care Team (Late st Contact Info) Description 01/03/2025 Refill [facility] [address] [place], [place] [phone] Gloria Cruz ANP [address] [place] [address] Essential hypertension; Hyperlipidemia associated with type 2 [...] Description 06/09/2025 2:30 PM EST Medication Management [facility] [address] [place] [phone] Caio Brcieño PharmD [address] [place] [address] 07/07/2025 9:30 AM EST Office Visit [facility] [address] [place] [address] [phone] Malcolm Waters MD [address] [place] [phone] documented as of this encounter Goals Goal Patient Goal Type Associated Problems Recent Progress Patient-Stated? Author Blood Pressure < 140/90 Blood Pressure 124/78(2024 11:20 AM EDT) No Briceño, Caio, PharmD Hemoglobin A1c < 7 Result Component 8.4( 5 11:24 AM EDT) No Caio Briceño, Sandy documented as of this encounter Visit Diagnoses Diagnosis Essential hypertension Unspecified essential hypertension Hyperlipidemia associated with type 2 diabetes mellitus (HCC) Alcohol consumption binge drinking documented in this encounter Additional Health Concerns Assessment Noted Time PHQ-9 Depression Total Score: 0 11/05/19 25 11:12 AM EDT documented as of this encounter Care Teams Crate Repairer Relationship Specialty Start Date End Date Gloria Cruz ANP [address] [place] [address] PCP - General Family Medicine 02/11/21 George Hays FNP [address] [place] [address] Nurse Practitioner Family Medicine 05/25/23 Caio Briceño, PharmD [address] [place] [phone] Pharmacist Internal Medicine 02/01/24 documented as of this encounter
--- OUTSIDE RECORDS SUMMARY | 2025-06-02 19:43 | XMS_ITS | Encounter Summary ---
Author Organization [employer] Address 75 [facility] 7t [place] [address] Care Team Providers Care Roving Frame Tender Name Role Phone Gloria Cruz Primary Care Provider George Hays PHYSICAL THERAPY ASSISTANT INSTRUCTOR Unavailable Unavailable Caio Briceño PharmD Unavailable [phone] Encounter Details Date Type Department Care Team (Late st Contact Info) Description 05/22/2025 Results Follow-Up [facility] [address] [place] [address] Gloria Cruz ANP 230 [place] [address] Hepatic Function Panel, Hepatitis Panel, General, HIV-1/2 Antigen and Antibodies, Fourth Generation, with Reflexes, GAGE Screen,IFA, with Reflex to Titer and Pattern Social History Tobacco Use Types Packs/Day Years [...] as of this encounter Miscellaneous Notes * Result Encounter Note - PETRONA Gonzales - 05/22/2025 5:46 PM EST Labs from GI. documented in this encounter Plan of Treatment Upcoming Encounters Date Type Department Care Team (Late st Contact Info) Description 06/09/2025 2:30 PM EST Medication Management [facility] [address] [place] [address] Caio Briceño, PharmD [address] [place] [address] 07/07/2025 9:30 AM EST Office Visit [facility] [address] [place] [address] Malcolm Waters MD [address] [place] [address] documented as of this encounter Goals Goal [...] Plan Patient has chronic kidney disease No Glorai Cruz ANP documented as of this encounter Visit Diagnoses Not on filedocumented in this encounter Additional Health Concerns Active Problems Noted Date Diagnosed Date Help patients manage their type 2 diabetes 05/22 Weekly blood pressure task 05/22/2025 Help patients manage their type 2 diabetes 05/22 Patient has chronic kidney disease 05/22/2025 Assessment Noted Time PHQ-9 Depression Total Score: 0 11/05/19 25 11:12 AM EDT documented as of this encounter Care Teams Roving Frame Tender Relationship Specialty Start Date End Date Gloria Cruz ANP [address] [place] [address] PCP - General Family Medicine 02/11/21 George Hays FNP [address] [place] [address] Nurse Practitioner Family Medicine 05/25/23 Caio Briceño, Sandy [address] [place] [address] Pharmacist Internal Medicine 02/01/24 documented as of this encounter
--- OUTSIDE RECORDS SUMMARY | 2025-06-02 19:43 | XMS_ITS | Encounter Summary ---
Author Organization [employer] Address 75 [facility] 7t [place] [address] Care Team Providers Care Hog Ribber Name Role Phone Gloria Cruz PETRONA Primary Care Provider [phone] George Hays WELLNESS TRAINER Unavailable Unavailable Caio Briceño PharmD Unavailable [phone] Encounter Details Date Type Department Care Team ([facility] Contact Info) Description 12/31/2022 Orders Only [facility] [address] [place] [address] Amanda Collins LPN Social History Tobacco Use [...] Upcoming Encounters Date Type Department Care Team ([facility] Contact Info) Description 06/09/2025 2:30 PM EST Medication Management [facility] [address] [place] [address] Caio Briceño, PharmD 230 [place] [address] 07/07/2025 9:30 AM EST Office Visit [facility] [address] [place] [address] Malcolm Waters MD 230 [place] [address] documented as of this encounter Visit Diagnoses Not on filedocumented in this encounter Care Teams Hog Ribber Relationship Specialty Start Date End Date Gloria Cruz ANP Denise [place], [place] [phone] PCP - General Family Medicine 02/11/21 George Hays FNP [address] [place] [address] Nurse Practitioner Family Medicine 05/25/23 Caio Briceño, BaljinderD [address] [place] [address] Pharmacist Internal Medicine 02/01/24 documented as of this encounter
--- OUTSIDE RECORDS SUMMARY | 2025-06-02 19:43 | XMS_ITS | Clinical Summary ---
Author Organization [employer] [facility] it Address [address] [place] [address] Care Team Providers Care Senior Auditor Name Role Phone Unavailable Primary Care Provider [...]
--- OUTSIDE RECORDS SUMMARY | 2025-06-02 19:43 | XMS_ITS | Encounter Summary ---
Author Organization [employer] Address 75 [facility] 7 [place] [address] Care Team Providers Care Aviation Medicine Specialist Name Role Phone Gloria Cruz Primary Care Provider [phone] George Hays SLD INCLUSION TEACHER Unavailable Unavailable Caio Briceño PharmD Unavailable [phone] Reason for Visit * Reason Onset Date Comments Call Back Request 12/25/2023 Encounter Details Date Type Department Care Team ([facility] st Contact Info) Description 12/25/2023 Telephone [facility] [address] [place] [address] Gloria Cruz ANP [address] [place] [address] Call Back Request Social History Tobacco Use [...] Description 06/09/2025 2:30 PM EST Medication Management [facility] [address] [place] [address] Caio Briceño, PharmD [address] [place] [address] 07/07/2025 9:30 AM EST Office Visit [facility] [address] [place] [address] Malcolm Waters MD [address] [place] [address] documented as of this encounter Visit Diagnoses Not on filedocumented in this encounter Additional Health Concerns Assessment Noted Time PHQ-9 Depression Total Score: 0 09/29/19 24 9:20 AM EDT documented as of this encounter Care Teams Aviation Medicine Specialist Relationship Specialty Start Date End Date Gloria Cruz ANP [address] [place] [address] [place] [address] PCP - General Family Medicine 02/11/21 George Hays FNP 230 [place] [address] Nurse Practitioner Family Medicine 05/25/23 Caio Briceño, BaljinderD 230 [place] [address] Pharmacist Internal Medicine 02/01/24 documented as of this encounter
--- OUTSIDE RECORDS SUMMARY | 2025-06-02 19:43 | XMS_ITS | Encounter Summary ---
Author Organization [employer] Address 75 [facility] 7t [place] [address] Care Team Providers Care Lean Manager Name Role Phone Gloria Cruz Primary Care Provider [phone] George Hays SURGICAL PATHOLOGIST Unavailable Unavailable Caio Briceño PharmD Unavailable [phone] Encounter Details Date Type Department Care Team (Late st Contact Info) Description 04/03/2025 Refill [facility] 230 [place], [place] [phone] Gloria Cruz ANP 230 [place] [address] Alcohol consumption binge drinking; Essential hypertension Social [...] Description 06/09/2025 2:30 PM EST Medication Management [address] [address] Caio Briceño PharmD [address] [place] [address] 07/07/2025 9:30 AM EST Office Visit [address] [address] Malcolm Waters MD [address] [place] [address] documented as of this encounter Goals Goal [...] documented as of this encounter Care Teams Lean Manager Relationship Specialty Start Date End Date Gloria Cruz ANP [address] [place] [address] PCP - General Family Medicine 02/11/21 George Hays FNP [address] [place] [address] Nurse Practitioner Family Medicine 05/25/23 Caio Briceño, BaljinderD [address] [place] [address] Pharmacist Internal Medicine 02/01/24 documented as of this encounter
--- OUTSIDE RECORDS SUMMARY | 2025-06-02 19:43 | XMS_ITS | Encounter Summary ---
Author Organization [employer] Address [address] [place] [address] 7 [place] [address] Care Team Providers Care Elevator Technician Name Role Phone Gloria Cruz PETRONA Primary Care Provider [phone] George Hays AUDIO VISUAL TECH Unavailable Unavailable Caio Briceño PharmD Unavailable [phone] Encounter Details Date Type Department Care Team (Late st Contact Info) Description 09/01/2022 Orders Only [facility] MED[facility] [address] [place] [address] Silvia Keyes LPN Social History Tobacco Use [...] Description 06/09/2025 2:30 PM EST Medication Management [address] [address] Caio Briceño, PharmD [address] [place] [address] 07/07/2025 9:30 AM EST Office Visit [address] [address] Malcolm Waters MD [address] [place] [address] [phone] documented as of this encounter Visit Diagnoses Not on filedocumented in this encounter Care Teams Elevator Technician Relationship Specialty Start Date End Date Gloria Cruz ANP 230 [place] [address] PCP - General Family Medicine 02/11/21 George Hays FNP [address] [place] [address] Nurse Practitioner Family Medicine 05/25/23 Caio Briceño, Sandy [address] [place] [address] Pharmacist Internal Medicine 02/01/24 documented as of this encounter
--- OUTSIDE RECORDS SUMMARY | 2025-06-02 19:43 | XMS_ITS | Encounter Summary ---
Author Organization [employer] Address 75 [facility] 7t [place] [address] Care Team Providers Care Pulp Bleacher Name Role Phone Gloria Cruz Primary Care Provider [phone] George Hays BRAKE RIDER Unavailable Unavailable Caio Briceño PharmD Unavailable [phone] Reason for Visit * Reason Onset Date Comments triage 10/14/2022 Encounter Details Date Type Department Care Team (Late st Contact Info) Description 10/14/2022 Telephone [facility] 230 [place] [address] Gloria Cruz ANP 230 [place] [address] triage Social History Tobacco Use Types Packs/Day [...] accepted this outcome Please contact spouse at [phone] documented in this encounter Plan of Treatment Upcoming Encounters Date Type Department Care Team (Late st Contact Info) Description 06/09/2025 2:30 PM EST Medication Management [facility] [address] [place] [address] Caio Briceño, BaljinderD 230 [place] [address] 07/07/2025 9:30 AM EST Office Visit [facility] [address] [place] [address] Malcolm Waters MD [address] [place] [address] documented as of this encounter Visit Diagnoses Not on filedocumented in this encounter Care Teams Pulp Bleacher Relationship Specialty Start Date End Date Gloria Cruz ANP [address] [place] [address] PCP - General Family Medicine 02/11/21 George Hays FNP [address] [place] [address] Nurse Practitioner Family Medicine 05/25/23 Caio Briceño, BaljinderD [address] [place] [address] Pharmacist Internal Medicine 02/01/24 documented as of this encounter
--- OUTSIDE RECORDS SUMMARY | 2025-06-02 19:43 | XMS_ITS | Encounter Summary ---
Author Organization [employer] Address 75 [facility] 7t [place] [address] Care Team Providers Care Card Cutter Name Role Phone Gloria Cruz Primary Care Provider [phone] George Hays SPECIAL PROCEDURE TECHNOLOGIST Unavailable Unavailable Caio Briceño PharmD Unavailable [phone] Encounter Details Date Type Department Care Team (Late st Contact Info) Description 09/08/2022 Abstract [facility] [address] [place] [address] Gloria Cruz ANP 230 [place] [address] Social History Tobacco Use Types Packs/Day Years [...] Description 06/09/2025 2:30 PM EST Medication Management [facility] [address] [place] [address] Caio Briceño, PharmD [address] [place] [address] 07/07/2025 9:30 AM EST Office Visit [facility] [address] [place] [address] Malcolm Waters MD [address] [place] [address] [phone] documented as of this encounter Visit Diagnoses Not on filedocumented in this encounter Care Teams Card Cutter Relationship Specialty Start Date End Date Gloria Cruz ANP [address] [place] [address] [phone] PCP - General Family Medicine 02/11/21 George Hays FNP [address] [place] [address] Nurse Practitioner Family Medicine 05/25/23 Caio Briceño, PharmD [address] [place] [address] Pharmacist Internal Medicine 02/01/24 documented as of this encounter
--- OUTSIDE RECORDS SUMMARY | 2025-06-02 19:43 | XMS_ITS | Encounter Summary ---
Author Organization [employer] Address 75 [facility] 7t [place] [address] Care Team Providers Care Digital Advertising Analyst Name Role Phone Gloria Cruz Primary Care Provider [phone] George Hays TUBE WINDER HAND Unavailable Unavailable Caio Briceño PharmD Unavailable [phone] Reason for Visit * Reason Onset Date Comments Nurse Triage 08/18/2023 Encounter Details Date Type Department Care Team (Late st Contact Info) Description 08/18/2023 Telephone [facility] 230 [place] [address] Gloria Cruz ANP 230 [place] [address] Nurse Triage Social History Tobacco Use Types [...] this outcome Please contact pt spouse at [phone] documented in this encounter Plan of Treatment Upcoming Encounters Date Type Department Care Team (Late st Contact Info) Description 06/09/2025 2:30 PM EST Medication Management [facility] [address] [place] [address] Caio Briceño, Sandy [address] [place] [address] 07/07/2025 9:30 AM EST Office Visit [facility] [address] [place] [address] Malcolm Waters MD [address] [place] [address] documented as of this encounter Visit Diagnoses Not on filedocumented in this encounter Additional Health Concerns Assessment Noted Time PHQ-9 Depression Total Score: 0 08/03/19 24 2:06 PM EST documented as of this encounter Care Teams Digital Advertising Analyst Relationship Specialty Start Date End Date Gloria Cruz ANP [address] [place] [address] PCP - General Family Medicine 02/11/21 George Hays FNP [address] [place] [address] Nurse Practitioner Family Medicine 05/25/23 Caio Briceño, PharmD [address] [place] [address] Pharmacist Internal Medicine 02/01/24 documented as of this encounter
== END 2025-06-02 16:44 | disposition home or self-care (01) ==
LOC: HO.HGI 15:54
PROVIDERS: PCP Nurse Practitioner Primary Care; Visit Provider Nurse Practitioner
DX: R74.01 Elevation of levels of liver transaminase levels (principal); K21.9 Gastro-esophageal reflux disease without esophagitis; E11.9 Type 2 diabetes mellitus without complications; R79.89 Other specified abnormal findings of blood chemistry
CPT/HCPCS: 99213

== ENCOUNTER → 2025-06-02 15:53 | Outpatient (BNVA) | payer MEDICAID, SELFPAY | PROVIDERS: PCP Nurse Practitioner Primary Care; Visit Provider Nurse Practitioner | DX: R74.01 Elevation of levels of liver transaminase levels (principal); K21.9 Gastro-esophageal reflux disease without esophagitis; R79.89 Other specified abnormal findings of blood chemistry; E11.65 Type 2 diabetes mellitus with hyperglycemia; Z79.4 Long term (current) use of insulin; Z79.84 Long term (current) use of oral hypoglycemic drugs; Z79.85 Long-term (current) use of injectable non-insulin antidiabetic drugs; E66.01 Morbid (severe) obesity due to excess calories; Z68.41 Body mass index [BMI] 40.0-44.9, adult; Z79.82 Long term (current) use of aspirin; F17.210 Nicotine dependence, cigarettes, uncomplicated; F10.10 Alcohol abuse, uncomplicated | CPT/HCPCS: 99212 ==

== ENCOUNTER 2025-06-09 11:21 | Outpatient (REF) | payer MEDICAID, SELFPAY ==
[2025-06-09 12:00] LABS: INTERNATIONAL NORM RATIO 1.1 (0.9-1.1); Prothrombin Time 13.4 SEC (11.2-13.5)
--- OUTSIDE RECORDS SUMMARY | 2025-06-09 16:17 | XMS_ITS | Encounter Summary ---
Author Organization [employer] Address 75 [facility] 7t [place] [address] Care Team Providers Care Programming Instructor Name Role Phone Gloria Cruz Primary Care Provider George Hays ANVIL SEATING PRESS OPERATOR Unavailable Unavailable Caio Briceño PharmD Unavailable Encounter Details Date Type Department Care Team (Late st Contact Info) Description 05/22/2025 Results Follow-Up [facility] 230 [place] [address] Gloria Cruz ANP 230 [place] [address] Hepatic Function Panel, Hepatitis Panel, General, HIV-1/2 [...] EST Office Visit [facility] [address] [place] [address] Malcolm Waters MD [address] [place] [address] 07/07/2025 2:30 PM EST Medication Management [facility] [address] [place] [address] Caio Briceño, PharmD 230 [place] [address] documented as of this encounter Goals Goal [...] chronic kidney disease No Gloria Cruz ANP documented as of this encounter [...] documented as of this encounter Care Teams Programming Instructor Relationship Specialty Start Date End Date Gloria Cruz ANP [address] [place] [address] PCP - General Family Medicine 02/11/21 George Hays FNP [address] [place] [address] Nurse Practitioner Family Medicine 05/25/23 Caio Briceño, Sandy [address] [place] [address] Pharmacist Internal Medicine 02/01/24 documented as of this encounter
--- OUTSIDE RECORDS SUMMARY | 2025-06-09 16:17 | XMS_ITS | Encounter Summary ---
Author Organization [employer] Address 75 [facility] 7t [place] [address] Care Team Providers Care Battery Wrecker Operator Name Role Phone Gloria Cruz Primary Care Provider [phone] George Hays DUDE RANCH MANAGER Unavailable Unavailable Caio Briceño PharmD Unavailable [phone] Encounter Details Date Type Department Care Team (Late st Contact Info) Description 04/03/2025 Refill [facility] 230 [place], [place] [phone] Gloria Cruz ANP 230 [place] [address] Alcohol consumption binge drinking; Essential hypertension Social [...] Description 07/07/2025 9:30 AM EST Office Visit [address] [address] Malcolm Waters MD [address] [place] [address] 07/07/2025 2:30 PM EST Medication Management [address] [address] Caio Briceño PharmD [address] [place] [address] documented as of this encounter Goals Goal [...] documented as of this encounter Care Teams Battery Wrecker Operator Relationship Specialty Start Date End Date Gloria Cruz ANP [address] [place] [address] PCP - General Family Medicine 02/11/21 George Hays FNP [address] [place] [address] Nurse Practitioner Family Medicine 05/25/23 Caio Briceño, BaljinderD [address] [place] [address] Pharmacist Internal Medicine 02/01/24 documented as of this encounter
--- OUTSIDE RECORDS SUMMARY | 2025-06-09 16:17 | XMS_ITS | Encounter Summary ---
Author Organization [employer] Address 75 [facility] 7t [place] [address] Care Team Providers Care Specialty Department Supervisor Name Role Phone Gloria Cruz Primary Care Provider [phone] George Hays DISPLAY DESIGNER Unavailable Unavailable Caio Briceño PharmD Unavailable [phone] Reason for Visit * Reason Comments Med Refill Encounter Details Date Type Department Care Team ([facility] Contact Info) Description 10/24/2022 Refill [facility] [address] [place] [address] Gloria Cruz ANP 230 [place] [address] Social History Tobacco Use Types Packs/Day Years [...] Upcoming Encounters Date Type Department Care Team ([facility] Contact Info) Description 07/07/2025 9:30 AM EST Office Visit [facility] [address] [place] [address] Malcolm Waters MD 230 [place], [place] [phone] 07/07/2025 2:30 PM EST Medication Management [facility] [address] [place], [place] [phone] Caio Briceño, PharmD [address] [place] [address] [phone] documented as of this encounter Visit Diagnoses Not on filedocumented in this encounter Care Teams Specialty Department Supervisor Relationship Specialty Start Date End Date Gloria Cruz ANP [address] [place] [address] [phone] PCP - General Family Medicine 02/11/21 George Hays FNP [address] [place] [address] Nurse Practitioner Family Medicine 05/25/23 Caio Briceño, PharmD [address] [place] [address] [phone] Pharmacist Internal Medicine 02/01/24 documented as of this encounter
--- OUTSIDE RECORDS SUMMARY | 2025-06-09 16:17 | XMS_ITS | Encounter Summary ---
Author Organization [employer] Address 75 [facility] 7t [place] [address] Care Team Providers Care Handle Sander Operator Name Role Phone Nancy Gloria RUSS Primary Care Provider George Hays CAUL DRESSER Unavailable Unavailable Caio Briceño PharmD Unavailable [phone] Encounter Details Date Type Department Care Team (Late st Contact Info) Description 06/09/2025 Orders Only [facility] EXTERNAL DATA DEPARTMENT Provider, Generic External Data Social History Tobacco Use Types Packs/Day Years [...] Description 07/07/2025 9:30 AM EST Office Visit [address] [address] Malcolm Waters MD [address] [place] [address] 07/07/2025 2:30 PM EST Medication Management [address] [address] Caio Briceño PharmD [address] [place] [address] documented as of this encounter Goals Goal [...] chronic kidney disease No Gloria Cruz ANP Weekly blood pressure task Care Plan Weekly blood pressure task No Caio Briceño, PharmGovind Weekly blood pressure task Care Plan Weekly blood pressure task No Caio Briceño PharmD Patient has chronic kidney disease Care Plan Patient has chronic kidney disease Caio Roman PharmD Patient has chronic kidney disease Care Plan Patient has chronic kidney disease No Caio Briceño PharmD documented as of this encounter Procedures Procedure Name Priority Date/Time Associated Diagnosis Comments PROTHROMBIN TIME-INR Routine 06/09/2025 11:31 AM EST documented in this encounter Results * Prothrombin Time-INR (06/09/2025 11:31 AM EST) Prothrombin Time 13.4 11.2 - 13.5 SEC [facility] INTERNATIONAL NORM RATIO 1.1 0.9 - 1.1 [facility] Comment:INTERNATIONAL NORMAL IZED RATIO (INR) REFERENCE RANGES Reference RangeFor patients not on anticoagulant therapy: 0.9 - 1.1INR ranges for oral anticoagulanttherapy:For prevention and treatment of venous thrombosis and pulmonary embolism: 2.0 - 3.0For acute myocardial infarction with aspirin therapy: 2.0 - 3.0For acute myocardial infarction without aspirin therapy: 3.0 - 4.0For patients with mechanical prosthetic heart valves: 2.5 - 3.5 06/09/2025 11:3 1 AM EST 06/09/2025 11:31 AM EST us Generic External Data Provider LAB BLOOD ORDERAB LES Final Result Performing Organization Address City/State/[facility] Co de Phone Number [facility] [address] [place] [phone] documented in this encounter Visit Diagnoses Not on filedocumented in this encounter Additional Health Concerns Active Problems Noted Date Diagnosed Date Help patients manage their type 2 diabetes 05/22 Weekly blood pressure task 05/22/2025 Help patients manage their type 2 diabetes 05/22 Patient has chronic kidney disease 05/22/2025 Weekly blood pressure task 06/09/2025 Weekly blood pressure task 06/09/2025 Patient has chronic kidney disease 06/09/2025 Patient has chronic kidney disease 06/09/2025 Assessment Noted Time PHQ-9 Depression Total Score: 0 11/05/19 25 11:12 AM EDT documented as of this encounter Care Teams Handle Sander Operator Relationship Specialty Start Date End Date Gloria Cruz ANP [address] [place] [address] PCP - General Family Medicine 02/11/21 George Hays FNP [address] [place] [address] Nurse Practitioner Family Medicine 05/25/23 Caio Briceño, Sandy [address] [place] [address] Pharmacist Internal Medicine 02/01/24 documented as of this encounter
--- OUTSIDE RECORDS SUMMARY | 2025-06-09 16:17 | XMS_ITS | Encounter Summary ---
Author Organization [employer] Address 75 [facility] 7t [place] [address] Care Team Providers Care Trimmer Operator Three Knife Name Role Phone Gloria Cruz Primary Care Provider [phone] George Hays SURFBOARD DESIGNER Unavailable Unavailable Caio Briceño PharmD Unavailable [phone] Encounter Details Date Type Department Care Team (Late st Contact Info) Description 01/03/2025 Refill [facility] MED[facility]INE 230 [place], [place] [phone] Gloria Cruz ANP 230 [place] [address] Essential hypertension; Hyperlipidemia associated with type 2 [...] Description 07/07/2025 9:30 AM EST Office Visit [facility] [address] [place] [address] Malcolm Waters MD [address] [place] [address] 07/07/2025 2:30 PM EST Medication Management [facility] [address] [place] [address] Caio Briceño PharmD [address] [place] [address] documented as of this encounter Goals Goal [...] documented as of this encounter Care Teams Trimmer Operator Three Knife Relationship Specialty Start Date End Date Gloria Cruz ANP 230 [place] [address] PCP - General Family Medicine 02/11/21 George Hays FNP [address] [place] [address] Nurse Practitioner Family Medicine 05/25/23 Caio Briceño, PharmD [address] [place] [address] Pharmacist Internal Medicine 02/01/24 documented as of this encounter
--- OUTSIDE RECORDS SUMMARY | 2025-06-09 16:17 | XMS_ITS | Encounter Summary ---
Author Organization [employer] Address [address] [facility] 7t [place] [address] Care Team Providers Care Rope Tier Name Role Phone Gloria Cruz Primary Care Provider [phone] George Hays ONLINE PUBLISHER Unavailable Unavailable Caio Briceño PharmD Unavailable [phone] Reason for Visit * Reason Onset Date Comments triage 10/14/2022 Encounter Details Date Type Department Care Team (Late st Contact Info) Description 10/14/2022 Telephone [facility] MEDICINE [address] [place] [address] Gloria Cruz ANP [address] [place] [address] triage Social History Tobacco Use Types Packs/Day [...] accepted this outcome Please contact spouse at [phone] documented in this encounter Plan of Treatment Upcoming Encounters Date Type Department Care Team (Late st Contact Info) Description 07/07/2025 9:30 AM EST Office Visit [facility] MEDICINE [address] [place] [phone] Malcolm Waters MD [address] [place] [address] 07/07/2025 2:30 PM EST Medication Management [facility] MED[facility]INE [address] [place] [phone] Caio Briceño, BaljinderD [address] [place] [phone] documented as of this encounter Visit Diagnoses Not on filedocumented in this encounter Care Teams Rope Tier Relationship Specialty Start Date End Date Gloria Cruz ANP [address] [place] [phone] PCP - General Family Medicine 02/11/21 George Hays FNP [address] [place] [address] Nurse Practitioner Family Medicine 05/25/23 Caio Briceño, Sandy [address] [place] [address] Pharmacist Internal Medicine 02/01/24 documented as of this encounter
--- OUTSIDE RECORDS SUMMARY | 2025-06-09 16:17 | XMS_ITS | Encounter Summary ---
Author Organization [employer] Address [address] [facility] 7t [place] [address] Care Team Providers Care Insurance Solicitor Name Role Phone Gloria Cruz Primary Care Provider [phone] IN THEATER ATTENDANT Unavailable Unavailable Caio Briceño PharmD Unavailable [phone] Reason for Visit * Reason Onset Date Comments Nurse Triage 08/18/2023 Encounter Details Date Type Department Care Team (Late st Contact Info) Description 08/18/2023 Telephone [facility] [address] [place] [address] Gloria Cruz ANP [address] [place] [address] Nurse Triage Social History Tobacco Use Types [...] this outcome Please contact pt spouse at [phone] documented in this encounter Plan of Treatment Upcoming Encounters Date Type Department Care Team (Late st Contact Info) Description 07/07/2025 9:30 AM EST Office Visit [facility] [address] [place] [address] Malcolm Waters MD [address] [place] [address] 07/07/2025 2:30 PM EST Medication Management [facility] [address] [place] [address] Caio Briceño, PharmD [address] [place] [address] documented as of this encounter Visit Diagnoses Not on filedocumented in this encounter Additional Health Concerns Assessment Noted Time PHQ-9 Depression Total Score: 0 08/03/19 24 2:06 PM EST documented as of this encounter Care Teams Insurance Solicitor Relationship Specialty Start Date End Date Gloria Cruz ANP [address] [place] [address] PCP - General Family Medicine 02/11/21 George Hays FNP [address] [place] [address]26 Nurse Practitioner Family Medicine 05/25/23 Caio Briceño, PharmD [address] [place] [phone] Pharmacist Internal Medicine 02/01/24 documented as of this encounter
--- OUTSIDE RECORDS SUMMARY | 2025-06-09 16:18 | XMS_ITS | Encounter Summary ---
Author Organization [employer] Address [address] [facility] 7t [place] [address] Care Team Providers Care Scallop Shucker Name Role Phone Gloria Cruz PETRONA Primary Care Provider [phone] George Hays GLASS SILVERER Unavailable Unavailable Caio Briceño PharmD Unavailable [phone] Encounter Details Date Type Department Care Team (Late Contact Info) Description 12/31/2022 Orders Only [facility] MED & PEDS [address] [place], [place] [phone] Amanda Collins LPN Social History Tobacco Use [...] Upcoming Encounters Date Type Department Care Team ([facility] Contact Info) Description 07/07/2025 9:30 AM EST Office Visit [facility] MEDICINE [address] [place] [address] Malcolm Waters MD [address] [place] [phone] 07/07/2025 2:30 PM EST Medication Management [facility] MEDICINE [address] [place] [address] [phone] Caio Briceño, PharmD [address] [place] [address] documented as of this encounter Visit Diagnoses Not on filedocumented in this encounter Care Teams Scallop Shucker Relationship Specialty Start Date End Date Gloria Cruz ANP [address] [place] [address] PCP - General Family Medicine 02/11/21 George Hays FNP [address] [place] [address] Nurse Practitioner Family Medicine 05/25/23 Caio Briceño, PharmD [address] [place] [address] [phone] Pharmacist Internal Medicine 02/01/24 documented as of this encounter
--- OUTSIDE RECORDS SUMMARY | 2025-06-09 16:18 | XMS_ITS | Encounter Summary ---
Author Organization [employer] Address [address] [place] [address] 7 [place] [address] Care Team Providers Care Forensic Photographer Name Role Phone Gloria Cruz Primary Care Provider [phone] George Hays FIRST OFFICER Unavailable Unavailable Caio Briceño PharmD Unavailable [phone] Reason for Visit * Reason Onset Date Comments Med Refill 07/30/2022 Encounter Details Date Type Department Care Team (Late st Contact Info) Description 07/30/2022 Telephone [facility] MEDICINE [address] [place] [address] Gloria Cruz ANP [address] [place] [address] Med Refill Social History Tobacco Use Types [...] 11:24 AM EST Medication was sent to [facility] on 07/24/22. Qty: 60 with 2 refills. * Telephone Encounter - Concepcion Cronin - 07/30/2022 10:30 AM EST Tc from pt requesting med refill for medication allopurinol (Zyloprim) 100 MG tablet. documented in this encounter Plan of Treatment Upcoming Encounters Date Type Department Care Team (Late st Contact Info) Description 07/07/2025 9:30 AM EST Office Visit [address] [address] Malcolm Waters MD [address] [place] [address] 07/07/2025 2:30 PM EST Medication Management [address] [address] Caio Briceño, PharmD [address] [place] [address] documented as of this encounter Visit Diagnoses Not on filedocumented in this encounter Care Teams Forensic Photographer Relationship Specialty Start Date End Date Gloria Cruz ANP [address] [place] [address] PCP - General Family Medicine 02/11/21 George Hays FNP [address] [place] [address] Nurse Practitioner Family Medicine 05/25/23 Caio Briceño, PharmD [address] [place] [phone] Pharmacist Internal Medicine 02/01/24 documented as of this encounter
--- OUTSIDE RECORDS SUMMARY | 2025-06-09 16:18 | XMS_ITS | Encounter Summary ---
Author Organization [employer] Address [address] [place] [address] 7 [place] [address] Care Team Providers Care Recycling Operator Name Role Phone Gloria Cruz PETRONA Primary Care Provider [phone] George Hays STAND IN Unavailable Unavailable Caio Briceño PharmD Unavailable [phone] Encounter Details Date Type Department Care Team (Late st Contact Info) Description 07/22/2022 Orders Only [facility] MEDICINE [address] [place] [phone] Silvia Keyes LPN Social History Tobacco Use [...] Description 07/07/2025 9:30 AM EST Office Visit [facility] MEDICINE [address] [place] [phone] Malcolm Waters MD [address] [place] [phone] 07/07/2025 2:30 PM EST Medication Management [facility] MEDICINE [address] [place] [address] Caio Briceño, PharmD [address] [place] [address] documented as of this encounter Visit Diagnoses Not on filedocumented in this encounter Care Teams Recycling Operator Relationship Specialty Start Date End Date Gloria Cruz ANP [address] [place] [address] PCP - General Family Medicine 02/11/21 George Hays FNP [address] [place] [address] Nurse Practitioner Family Medicine 05/25/23 Caio Briceño, Sandy [address] [place] [phone] Pharmacist Internal Medicine 02/01/24 documented as of this encounter
--- OUTSIDE RECORDS SUMMARY | 2025-06-09 16:19 | XMS_ITS | Clinical Summary ---
Author Organization [employer] Address [address] [facility] [address] [place] [address] Care Team Providers Care Advertising Strategist Name Role Phone Gloria Cruz PETROAN Primary Care Provider [phone] George Hays FRUIT ROOM HAND Unavailable Unavailable Caio Briceño PharmD Unavailable [phone] Allergies Active Allergy Reactions Criticality Noted Date [...] kit 09/24/19 23 Active Continuous Blood Gluc Substance Abuse Nurse (EnevoStyle Baljinder 2 [place]) device Scan sensor every 8 hours 1 [...] miscIndications:Ty pe 2 diabetes mellitus with hyperlipidemia (HCC) Use to test blood sugar as needed for sensor failure or hypoglycemia (up to QID) 100 each 11 5 1:15 PM EST 06/10/20 24 Active insulin lispro (HumaLOG KWIKPEN) 100 UNIT/ML injectionIndicatio ns:Type 2 diabetes mellitus with hyperlipidemia (HCC) Inject 4 units under the skin once daily before dinner. 15 mL 3 07/27/19 25 Active Continuous Glucose Sensor (FreeStyle Baljinder 3 Plus Sensor) miscIndications:Ty pe 2 diabetes mellitus with hyperlipidemia (HCC) Apply 1 Device topically every 15 days. 2 each 5 1:15 PM EST 07/27/19 25 Active ketoconazole (NIZOral) 2 % creamIndications:B alanitis Apply topically 2 times daily. For 2-4 weeks 60 g 07/28/19 25 Active glucose blood (FreeStyle Precision Jorge Test) test strip USE DIRECTED TO TEST BLOOD SUGAR FOUR TIMES DAILY 100 strip 5 1:15 PM EST 08/26/19 25 Active Alcohol Swabs (Alcohol Prep) 70 % pads USE DIRECTED THREE TIMES DAILY 100 each 11 09/07/19 25 Active glipiZIDE XL (Glucotrol XL) 10 MG 24 hr tabletIndications: Type 2 diabetes mellitus with hyperlipidemia (HCC) TAKE 1 TABLET BY MOUTH EVERY MORNING DO NOT BREAK, CRUSH, DISSOLVE OR CHEW 90 tablet 3 09/09/19 25 Active ARIPiprazole (Abilify) 5 MG tablet TAKE 1 TABLET BY MOUTH EVERY MORNING 90 tablet 09/09/19 25 Active insulin degludec (Tresiba FlexTouch) 200 UNIT/ML injectionIndicatio ns:Type 2 diabetes mellitus with hyperlipidemia (HCC) Inject 70 units under the skin once daily 18 mL 09/23/19 25 Active Mounjaro 15 MG/0.5ML solution auto-injectorIndic ations:Type 2 diabetes mellitus with hyperlipidemia (HCC) INJECT ONE PEN (=15MG) SUBCUTANEOUSLY ONCE A WEEK DIRECTED 2 mL 5 5 1:15 PM EST 11/30/19 25 Active D3 Super Strength 50 MCG (1999 UT) capsule Take 50 mcg by mouth in the morning. 11/23/19 25 Active omega-3 acid ethyl esters (Lovaza) 1 g capsuleIndications :Hypertriglyceride ginger Take 2 capsules (2 g) by mouth 2 times daily. 120 capsule 12/22/19 25 026 Active atorvastatin (Lipitor) 20 MG tabletIndications: Hyperlipidemia associated with type 2 diabetes mellitus (HCC) TAKE 1 TABLET BY MOUTH AT BEDTIME 90 tablet 01/04/20 25 Active pantoprazole (ProtoNix) 20 MG EC tabletIndications: Alcohol consumption binge drinking TAKE 1 TABLET BY MOUTH EVERY MORNING 90 tablet 04/04/20 25 Active prazosin (Minipress) 1 MG capsule TAKE 1 CAPSULE BY MOUTH AT BEDTIME 90 capsule 04/04/20 25 Active amLODIPine (Norvasc) 5 MG tabletIndications: Essential hypertension TAKE 1 TABLET BY MOUTH AT BEDTIME 90 tablet 04/04/20 25 Active allopurinol (Zyloprim) 100 MG tabletIndications: Idiopathic chronic gout without tophus, unspecified site TAKE 2 TABLETS BY MOUTH ONCE DAILY IN THE MORNING 180 tablet 2 04/20/20 25 Active TechLite Pen Thompson 32G X 4 MM misc USE DIRECTED EVERY DAY 100 each 3 05/10/20 25 Active Active Problems Problem Noted Date [...] below 88% for 20 min. Rx'd APAP [id number]. Mood disorder 02/02/2023 Assessment & Plan (09/29/2023 [...] management. For any questions or concerns, call [facility]. He will continue with therapist as [...] for assistance. PLAN: 1. Follow up with [facility]: Not recommended for follow-up 2. Patient goal is to engage in services (therapy and pharmacology). 3. Behavioral Recommendations a. Patient will utilize coping skills dicussed during encounter b. Patient will comply with medication, once service begins c. Patient will reach out to one of the [facility], if needed Kamaljit 07/16/2021 Type 2 diabetes [...] organization. Date Type Department Care Team Description 06/09/2025 Orders Only GENERIC EXTERNAL DATA DEPARTMENT Provider, Generic External Data 05/22/2025 Results Follow-Up [facility] [address] [place] [address] Gloria Cruz ANP Hepatic Function Panel, Hepatitis Panel, General, HIV-1/2 Antigen and Antibodies, Fourth Generation, with Reflexes, GAGE Screen,IFA, with Reflex to Titer and Pattern 05/19/2025 Orders Only GENERIC EXTERNAL DATA DEPARTMENT Provider, Generic External Data 05/10/2025 Refill [facility] [address] [place] [address] Gloria Cruz ANP 04/20/2025 Refill [facility] [address] [place] [address] Gloria Cruz ANP Idiopathic chronic gout without tophus, unspecified site 04/19/2025 Telephone [facility] [address] [place] [address] Gloria Cruz ANP 04/03/2025 Refill [facility] [address] [place] [address] Gloria Cruz ANP Alcohol consumption binge drinking; Essential hypertension 04/03/2025 Refill [facility] [address] [place] [address] Brad Burnett MD Alcohol consumption binge drinking; [...] Description 07/07/2025 9:30 AM EST Office Visit [facility] [address] [place] [phone] Malcolm Waters MD [address] [place] [phone] 07/07/2025 2:30 PM EST Medication Management [address] [address] Caio Briceño, PharmD [address] [place] [phone] Health Maintenance Due Date Last Done Comments [...] 11:24 AM EDT) No Caio Briceño PharmD Help patients manage their type 2 diabetes [...] blood pressure task No Caio Briceño PharmD Weekly blood pressure task Care Plan Weekly blood pressure task No Caio Briceño PharmD Patient has chronic kidney disease Care Plan Patient has chronic kidney disease No Caio Briceño PharmD Patient has chronic kidney disease Care Plan Patient has chronic kidney disease No Caio Briceño PharmD Procedures Procedure Name Priority Date/Time Associated Diagnosis Comments PROTHROMBIN TIME-INR Routine 06/09/2025 11:31 AM EST DRUG MONITORING, PHOSPHATIDYLETHANOL (PETH), BLOOD Routine 05/19/2025 11:36 AM EST LIVER FIBROSIS, FIBROTEST ACTITEST PANEL Routine 05/19/2025 11:36 AM EST MITOCHONDRIAL ANTIBODY WITH REFLEX TO TITER Routine 05/19/2025 11:36 AM EST ALPHA FETOPROTEIN, TUMOR MARKER Routine 05/19/2025 11:36 AM EST ACTIN (SMOOTH MUSCLE) ANTIBODY (IGG) Routine 05/19/2025 11:36 AM EST GAGE SCREEN, IFA, W/REFL TITER AND PATTERN Routine 05/19/2025 11:36 AM EST HIV 1/2 ANTIGEN/ANTIBODY, FOURTH GENERATION W/RFL Routine 05/19/2025 11:36 AM EST HEPATITIS PANEL, GENERAL Routine 025 11:36 AM EST HEPATIC FUNCTION PANEL Routine 11:36 AM EST POCT GLYCATED HEMOGLOBIN, TOTAL Routine 02/10/2025 11:24 AM EDT Type 2 diabetes mellitus with hyperlipidemia (CMS/HCC) (CMS/HCC) LIPID PANEL WITH REFLEX TO DIRECT LDL Routine 11/18/2024 9:40 AM EDT ALBUMIN, RANDOM URINE W/CREATININE Routine 12/29/2023 9:12 AM EDT Type 2 diabetes mellitus with hyperlipidemia (CMS/HCC) (CMS/HCC) from Last 3 Months or Most Recently Relevant to Health Maintenance Results * Prothrombin Time-INR (06/09/2025 11:31 AM EST) Prothrombin Time 13.4 11.2 - 13.5 SEC [facility] INTERNATIONAL NORM RATIO 1.1 0.9 - 1.1 [facility] Comment:INTERNATIONAL NORMAL IZED RATIO (INR) REFERENCE [...] ORDERAB LES Final Result Performing Organization Address City/[facility]/ZIP Co de Phone Number [facility] [address] [place] [phone] * Drug Monitoring, Phosphatidylethanol (PEth), Blood (05/19/2025 11:36 AM EST) Phosphatidylethanol, Blood 252 [facility] Comment:CUT OFF 20 ng/mL PEth 16:0/18:2 (PLPEth) 359 [facility] Comment:CUT OFF 20 ng/mL PEth Comments SEE NOTE [facility] Comment:NOTES AND COMMENTSTh is drug testing is for medical treatment only. Analysiswas performed as non-forensic testing and these resultsshould be used only by healthcare providers torender diagnosis or treatment, or to monitor progress ofmedical conditions.LDT Notes:Confirmation tests were developed and their analyticalperformance characteristics have been determined by [employer]. It has not been cleared orapproved by the FDA. This assay has been validated pursuantto the CLIA regulations and is used for clinical purposes.Healthcare Providers needing Interpretation assistance,please contact us at [phone] ( ) M-F,8am to 10pm ESTPERFORMING SITE:[employer]/[address] [address] [employer]: PATRICKW. KLEBER MD,PHD, CLIA: [id number] 05/19/2025 11:3 6 AM EST 05/19/2025 11:36 AM EST us Generic External Data Provider LAB BLOOD ORDERAB LES Final Result Performing Organization Address [facility] Co de Phone Number [facility] [address] [place] [phone] * Liver Fibrosis (HCV), FibroTest-ActiTest Panel (05/19/2025 11:36 AM EST) Liver Fibrosis Score SEE NOTE [facility] Liver Fibrosis Stage SEE NOTE [facility] Liver Fibrosis Interpretation SEE NOTE [facility] Nec Inflam Act Score SEE NOTE [facility] Nec Inflam Act Grade SEE NOTE [facility] Nec Inflam Act Interpretation SEE NOTE [facility] WMV-[id number]-Macrog lobulin SEE NOTE [facility] FIB-Haptoglobin SEE NOTE [facility] FIB-Apolipoprotein A1 SEE NOTE [facility] FIB-Total Bilirubin SEE NOTE [facility] FIB-GGT SEE NOTE [facility] FIB-ALT SEE NOTE [facility] Reference ID SEE NOTE [facility] Footnote SEE NOTE [facility] Comment:SEE SCANNED REPORT I N EMR 05/19/2025 11:3 6 AM EST 05/19/2025 11:36 AM EST us Generic External Data Provider LAB BLOOD ORDERAB LES Final Result [facility] [address] [place] [phone] * Hepatitis Panel, General (05/19/2025 11:36 AM EST) Hepatitis A IgM Nonreactive Nonreactive [facility] Comment:IgM antibodies to DHILLON V not detected; does not exclude earlyacute or recovered HAV infection. ~Hepatitis B Surface Antibody REACTIVE Nonreactive [facility] Comment:REACTIVE: > 11.99 mI U/mL Hepatitis B Core Antibody Nonreactive Nonreactive [facility] Hepatitis C Antibody Nonreactive Nonreactive [facility] Comment:Antibodies to HCV no t detected; does not exclude early acuteHCV infection. Hepatitis B Surface Ag Negative Negative [facility] 05/19/2025 11:3 6 AM EST 05/19/2025 11:36 AM EST us Generic External Data Provider LAB BLOOD ORDERAB LES Final Result Performing Organization Address [facility] Co de Phone Number [facility] [address] [place] [phone] * Actin (Smooth Muscle) Antibody (IgG) (05/19/2025 11:36 AM EST) Smooth Muscle Antibody <20 <20 U [facility] Comment:Reference Range: <20 U: Negative>or=20 [...] with AIH type 1.THIS TEST WAS PERFORMED AT:[email or web address]/[email or web address] [place] [address]ERZASXXTREVOR SHAHID MD,PHD 05/19/2025 11:3 6 AM EST 05/19/2025 11:36 AM EST us Generic External Data Provider LAB BLOOD ORDERAB LES Final Result Performing Organization Address [facility] de Phone Number [facility] [address] [place] [phone] * Alpha-Fetoprotein, Tumor Marker (05/19/2025 11:36 AM EST) Alpha Fetoprotein 3.3 <6.1 ng/mL [facility] Comment:This test was perfor med using the Veda Coulterchemiluminescent method. Values obtained fromdifferent assay methods cannot be usedinterchangeably. AFP levels, regardless ofvalue, should not be interpreted as absoluteevidence of the presence or absence of disease.THIS TEST WAS PERFORMED AT:[employer] [place] [id number] SCOTT MD 05/19/2025 11:3 6 AM EST 05/19/2025 11:36 AM EST us Generic External Data Provider LAB BLOOD ORDERAB LES Final Result Performing Organization Address [facility] Co de Phone Number [facility] [address] [place] [phone] * (ABNORMAL) Mitochondrial Antibody with Reflex to Titer (05/19/2025 11:36 AM EST) Mitochondrial Antibodies POSITIVE (A) NEGATIVE [facility] Comment:The immunofluorescen ce assay (IFA) procedure revealsthe possible presence of another autoantibody.Consider requesting order code [id number], Smooth MuscleAntibody with Reflex to Titer, if clinically indicated.THIS TEST WAS PERFORMED AT:[email or web address] [address] [phone] SCOTT MD Mitochondrial Ab Titer 1:20(A) <1:20 titer [facility] Comment:THIS TEST WAS PERFOR MED AT:[email or web address] [address] [id number] SCOTT MD 05/19/2025 11:3 6 AM EST 05/19/2025 11:36 AM EST Generic External Data Provider LAB BLOOD ORDERAB LES Final Result Performing Organization Address [facility] de Phone Number [facility] [address] [place] [phone] * HIV-1/2 Antigen and Antibodies, Fourth Generation, with Reflexes (05/19/2025 11:36 AM EST) HIV AB/AG Nonreactive Nonreactive [facility] Comment:HIV-1 p24 Ag and/or HIV-1/HIV-2 Ab not detected.A test result that is nonreactive does not exclude thepossibility of exposure to or infection with HIV-1 and/orHIV-2. Nonreactive results in this assay for individualswith prior exposure to HIV-1 and/or HIV-2 may be due toantigen and antibody levels that are below the limit ofdetection of this assay.The Note HIV Ag/Ab Combo assay result andsupplemental assay results should be interpreted inconjunction with the patient's clinical presentation,history and other laboratory results. If the results areinconsistent with clinical evidence, additional testing issuggested to confirm the result. 05/19/2025 11:3 6 AM EST 05/19/2025 11:36 AM EST us Generic External Data Provider LAB BLOOD ORDERAB LES Final Result [facility] [address] [place] [phone] * GAGE Screen,IFA, with Reflex to Titer and Pattern (05/19/2025 11:36 AM EST) Anti Nuclear Antibody Screen NEGATIVE NEGATIVE [facility] Comment:GAGE IFA is a first [...] clinicallysuspected inflammatory myopathies.AC-0: NegativeInternational Consensus on GAGE Patterns(https://doi.org/10.1515/wqrx-6944-7332)For additional information, please refer tohttp://education.[employer] ([employer])/faq/YUD844(This link is being provided for informational/educational purposes only.)THIS TEST WAS PERFORMED AT:[facility] [place] [phone] SCOTT MD GAGE Titer TNP [facility] GAGE Pattern TNP [facility] GAGE Titer 2 TNP [facility] GAGE Pattern 2 [facility] GAGE TITER 3 [facility] GAGE PATTERN 3 [facility] 05/19/2025 11:3 6 AM EST 05/19/2025 11:36 AM EST us Generic External Data Provider LAB BLOOD ORDERAB LES Final Result Performing Organization Address [facility] Co de Phone Number [facility] [address] [place] [phone] * (ABNORMAL) Hepatic Function Panel (05/19/2025 11:36 AM EST) Bilirubin, Total 1.2(H) 0.0 - 1.0 mg/dL [facility] Bilirubin, Direct 0.4 0.0 - 0.5 mg/dL [facility] Aspartate Amino Transferase 105(H) 5 - 37 U/L [facility] Alanine Aminotransferase 211(H) 0 - 40 U/L [facility] Total Protein 8.2(H) 6.5 - 8.0 g/dL [facility] Albumin Level 4.4 3.5 - 5.0 g/dL [facility] Alkaline Phosphatase 94 39 - 117 U/L [facility] 05/19/2025 11:3 6 AM EST 05/19/2025 11:36 AM EST [employer] External Data Provider LAB BLOOD ORDERAB LES Final Result Performing Organization Address [facility] Co de Phone Number [facility] [address] [place] [phone] * (ABNORMAL) POCT HGB A1C (02/10/2025 11:24 AM EDT) Hemoglobin A1C 8.4(A) 4.0 - 5.7 % QC Media Lot # [id number] Lot# Expiration Date [id number] Blood 02/10/2025 11:2 4 AM EDT us Gloria Cruz ANP POINT OF CARE TEST ENTER/EDIT OR DERABLES Final Result * (ABNORMAL) Lipid Panel with Reflex to Direct LDL (11/18/2024 9:40 AM EDT) Triglycerides 288(H) <150 mg/dL [facility] Comment:Desirable Triglyceri de: less than 150 mg/dLBorderline High Triglyceride 150-199 mg/dLHigh Triglyceride: 200-499 mg/dLVery High Triglyceride: greater than or equal to 5OO mg/dL Cholesterol 103 <200 mg/dL [facility] Comment:Desirable Cholestero l: less than 200 mg/dLBorderline High Cholesterol: 200-239 mg/dLHigh Cholesterol: greater than 239 mg/dL LDL Cholesterol Calculated 20 <100 mg/dL [facility] Comment:Desirable LDL: less than 100 mg/dLNear Optimal/Above Optimal LDL: 110- 129 mg/dLBorderline High LDL: 130-159 mg/dLHigh LDL: 160-189 mg/dLVery High LDL: greater than or equal to 190 mg/dL HDL Cholesterol 26(L) >40 mg/dL [facility] Comment:Desirable HDL: great er than 40 mg/dL Note: This HDL assay may give artificially low results in patients with liver disease. 11/18/2024 9:40 AM EDT 11/18/2024 9:40 AM EDT us Generic External Data Provider LAB BLOOD ORDERAB LES Final Result [facility] [address] [place] [phone] * Albumin, Random Urine W/Creatinine (12/29/2023 9:12 AM EDT) Creatinine, Urine 448.59 mg/dL [facility] Microalbumin Urine 91.0 mg/L [facility] Microalbum Creatinine Ratio Ur 20.2 <30 ug/mg cr [facility] Comment:Albumin/Creatinine R atio Reference Ranges: Normal: < 30 ug/mg creatinine Microalbuminuria: 30 - 300 ug/mg creatinineClinical Albuminuria: > 300 ug/mg creatinine Urine 12/29/2023 9:12 AM EDT 12/29/2023 10:43 AM EDT us Gloria RUSS LAB URINE ORDERABLES Final Resul t [facility] [address] [place] [phone] from Last 3 Months or Most [...] 06/09/2025 Patient has chronic kidney disease 06/09/2025 Insurance [employer] C3 Care Teams Advertising Strategist Relationship Specialty Start Date End Date Gloria Cruz ANP [address] [place] [phone] PCP - General Family Medicine 02/11/21 George Hays FNP [address] [place] [address] [phone] Nurse Practitioner Family Medicine 05/25/23 Caio Briceño, BaljinderD [address] [place] [address] Pharmacist Internal Medicine 02/01/24
--- OUTSIDE RECORDS SUMMARY | 2025-06-09 16:19 | XMS_ITS | Clinical Summary ---
Author Organization [facility] it Address [address] [place] [address] Care Team Providers Care Media Theorist And Author Of Name Role Phone Unavailable Primary Care Provider [...]
--- OUTSIDE RECORDS SUMMARY | 2025-06-09 16:19 | XMS_ITS | Encounter Summary ---
Author Organization [employer] Address [address] [place] [address] 7 [place] [address] Care Team Providers Care Felt Machine Mechanic Name Role Phone Gloria Cruz PETRONA Primary Care Provider [phone] George Hays SENIOR ARCHITECT Unavailable Unavailable Caio Briceño PharmD Unavailable [phone] Encounter Details Date Type Department Care Team (Late st Contact Info) Description 08/20/2022 Orders Only [facility] [address] [place] [address] Amanda Collins LPN Social History Tobacco Use [...] Description 07/07/2025 9:30 AM EST Office Visit [facility] [address] [place] [phone] Malcolm Waters MD [address] [place] [phone] 07/07/2025 2:30 PM EST Medication Management [facility] [address] [place] [phone] Caio Briceño, PharmD [address] [place] [phone] documented as of this encounter Visit Diagnoses Not on filedocumented in this encounter Care Teams Felt Machine Mechanic Relationship Specialty Start Date End Date Gloria Cruz ANP [address] [place] [phone] PCP - General Family Medicine 02/11/21 George Hays FNP [address] [place] [address] [phone] Nurse Practitioner Family Medicine 05/25/23 Caio Briceño, BaljinderD [address] [place] [phone] Pharmacist Internal Medicine 02/01/24 documented as of this encounter
--- OUTSIDE RECORDS SUMMARY | 2025-06-09 16:19 | XMS_ITS | Encounter Summary ---
Author Organization [employer] Address [address] [place] [address] 7 [place] [address] Care Team Providers Care Sales Coach Name Role Phone Gloria Cruz PETRONA Primary Care Provider [phone] George Hays RECRUITMENT CONSULTANT Unavailable Unavailable Caio Briceño PharmD Unavailable [phone] Encounter Details Date Type Department Care Team (Late st Contact Info) Description 09/01/2022 Orders Only [facility] [address] [place] [phone] Silvia Keyes LPN Social History Tobacco Use [...] 07/07/2025 9:30 AM EST Office Visit [facility] [address] [place] [phone] Malcolm Waters MD [address] [place] [phone] 07/07/2025 2:30 PM EST Medication Management [facility] [address] [place] [phone] Caio Briceño, PharmD [address] [place] [phone] documented as of this encounter Visit Diagnoses Not on filedocumented in this encounter Care Teams Sales Coach Relationship Specialty Start Date End Date Gloria Cruz ANP [address] [place] [address] PCP - General Family Medicine 02/11/21 George Hays FNP [address] [place] [address] [phone] Nurse Practitioner Family Medicine 05/25/23 Caio Briceño, Sandy [address] [place] [address] [phone] Pharmacist Internal Medicine 02/01/24 documented as of this encounter
--- OUTSIDE RECORDS SUMMARY | 2025-06-09 16:19 | XMS_ITS | Encounter Summary ---
Author Organization [employer] Address [address] [facility] [address]t [place] [address] Care Team Providers Care Childbirth Educator Name Role Phone Gloria Cruz Primary Care Provider [phone] George Hays PRODUCTION WELDING SUPERVISOR Unavailable Unavailable Caio Briceño PharmD Unavailable Encounter Details Date Type Department Care Team (Late st Contact Info) Description 09/08/2022 Abstract [facility] [address] [place] [phone] Gloria Cruz ANP [address] [place] [address] Social History Tobacco Use Types Packs/Day Years [...] 9:30 AM EST Office Visit [facility] MEDICINE [address] [place] [phone] Malcolm Waters MD [address] [place] [address] [phone] 07/07/2025 2:30 PM EST Medication Management [facility] MED[facility]INE [address] [place] [address] [phone] Caio Briceño, PharmD [address] [place] [address] documented as of this encounter Visit Diagnoses Not on filedocumented in this encounter Care Teams Childbirth Educator Relationship Specialty Start Date End Date Gloria Cruz ANP [address] [place] [address] [phone] PCP - General Family Medicine 02/11/21 George Hays FNP [address] [place] [phone] Nurse Practitioner Family Medicine 05/25/23 Caio Briceño, PharmD [address] [place] [address] [phone] Pharmacist Internal Medicine 02/01/24 documented as of this encounter
--- OUTSIDE RECORDS SUMMARY | 2025-06-09 16:19 | XMS_ITS | Encounter Summary ---
Author Organization [employer] Address [address] [facility] 7t [place] [address] Care Team Providers Care Taper/Finisher Name Role Phone Gloria Cruz Primary Care Provider [phone] George Hays Unavailable Unavailable Caio Briceño PharmD Unavailable [phone] Reason for Visit * Reason Comments Med Refill Encounter Details Date Type Department Care Team ([facility] st Contact Info) Description 10/14/2023 Refill [facility] MED[facility] [address] [place] [address] Gloria Cruz ANP [address] [place] [address] Social History Tobacco Use Types Packs/Day Years [...] Description 07/07/2025 9:30 AM EST Office Visit [address] [phone] Malcolm Waters MD [address] [place] [phone] 07/07/2025 2:30 PM EST Medication Management [address] [address] Caio Briceño, Sandy [address] [place] [phone] documented as of this encounter Visit Diagnoses Not on filedocumented in this encounter Additional Health Concerns Assessment Noted Time PHQ-9 Depression Total Score: 0 09/29/19 24 9:20 AM EDT documented as of this encounter Care Teams Taper/Finisher Relationship Specialty Start Date End Date Gloria Cruz ANP [address] [place] [phone] PCP - General Family Medicine 02/11/21 George Hays FNP [address] [place] [phone] Nurse Practitioner Family Medicine 05/25/23 Caio Briceño, PharmD [address] [place] [phone] Pharmacist Internal Medicine 02/01/24 documented as of this encounter
--- OUTSIDE RECORDS SUMMARY | 2025-06-09 16:19 | XMS_ITS | Encounter Summary ---
Author Organization [employer] Address [address] [facility] [address]t [place] [address] Care Team Providers Care Barbering Teacher Name Role Phone Gloria Cruz Primary Care Provider [phone] George Hays ELEVATOR SERVICE TECHNICIAN Unavailable Unavailable Caio Briceño PharmD Unavailable [phone] Reason for Visit * Reason Onset Date Comments Call Back Request 12/25/2023 Encounter Details Date Type Department Care Team ([facility] st Contact Info) Description 12/25/2023 Telephone [facility] MEDICINE [address] [place] [address] Gloria Cruz ANP [address] [place] [address] Call Back Request Social History Tobacco Use [...] 9:30 AM EST Office Visit [facility] MEDICINE [address] [place] [phone] Malcolm Waters MD [address] [place] [phone] 07/07/2025 2:30 PM EST Medication Management [facility] MED[facility] [address] [place] [phone] Caio Briceño, PharmD [address] [place] [phone] documented as of this encounter Visit Diagnoses Not on filedocumented in this encounter Additional Health Concerns Assessment Noted Time PHQ-9 Depression Total Score: 0 09/29/19 24 9:20 AM EDT documented as of this encounter Care Teams Barbering Teacher Relationship Specialty Start Date End Date Gloria Cruz ANP [address] [place] [address] [place] [address] PCP - General Family Medicine 02/11/21 George Hays FNP [address] [place] [address] Nurse Practitioner Family Medicine 05/25/23 Caio Briceño, BaljinderD [address] [place] [phone] Pharmacist Internal Medicine 02/01/24 documented as of this encounter
== END 2025-06-09 11:22 | disposition home or self-care (01) ==
LOC: HO.LAB 11:21
PROVIDERS: PCP Nurse Practitioner Primary Care; Visit Provider Nurse Practitioner
DX: R74.01 Elevation of levels of liver transaminase levels (principal); R79.89 Other specified abnormal findings of blood chemistry
CPT/HCPCS: 36415; 82103; 82390; 85610